=== PATIENT | male | born 1950 | race African-American/Black ===

== ENCOUNTER 2016-12-05 08:24 | Inpatient (IN) ==
--- NOTE | 2016-12-05 08:43 | Emergency Department Note ---
Randall Garibay Brooke, am scribing for, and in the presence of, Gary Soria MD 08:40 . Estella Garibay James D, MD, personally performed the services described in this documentation, ascribed by Vianney Pereira in my presence, and it is both accurate and complete 841 . Arrival - Arrival Chief Complaint: Upper Respiratory Stated Complaint: cough ED Nursing Triage Note: Pt c/o cough and ELIZONDO x 1 wk. Mode of Arrival: Ambulatory Limitations: No Limitations Source: Patient, Family, RN Notes Reviewed Time Seen by Provider: 12/05/16 08:33 - History of Present Illness HPI Narrative: Patient is a 65 year old male who presents to the ED with c/o cough and blood in his stool that has been ongoing for the past week. Patient says his cough is productive. He describes his mucous as white. Patient says he is having two bowel movements a day and there is bright red blood in the stool. His last bowel movement was this morning and there was blood in it. Patient also complains of abdominal pain and lightheadednes. The abdominal pain is located in the lower, center abdomen. Patient has PMHx of HTN and NIDDM. Patient is not currently taking any blood thinners. Onset (ago): week(s) (1) Allergies/Adverse Reactions: Allergies Allergy/AdvReac Type Severity Reaction Status Date / Time No Known Allergies Allergy Unverified 12/28/14 10:42 Home Medications: Home Medications Medication Instructions Recorded Confirmed Type HYDROcodone/ACETAMIN 10-325 [[place] 1 tablet PO Q6H PRN #20 tablet 12/28/14 Rx 10-325] Review of System - Review of System 12 point system: reviewed and no additional remarkable complaints except as stated - Review of System Constitutional: Absent: fever Respiratory: Present: cough (productive- white mucous). Absent: respiratory distress Gastrointestinal: Present: abdominal pain (lower center), hematochezia Skin: Absent: rash Neurological: Present: other (lightheaded) Medical,Surgical,& Family Hx - Medical History Cardio: History of: Hypertension Endocrine: History of: Diabetes Mellitus (NIDDM) (states diet controlled) - Social History Smoking Status: Current every day smoker Exam Vital Signs: Vital Signs Temperature 98.1 F 12/05/16 08:30 Pulse Rate 108 H 12/05/16 08:30 Respiratory Rate 20 12/05/16 08:30 Blood Pressure 141/89 12/05/16 08:30 O2 Sat by Pulse Oximetry 99 12/05/16 08:25 GENERAL: This is a well-nourished well-developed black male, chronically ill- appearing, in no apparent distress. VITAL SIGNS: Reviewed HEENT: Head is atraumatic and normocephalic. Pupils are equal round react to light. Extraocular movements are intact. [place] conjunctiva. Oropharynx is benign with moist mucous membranes. NECK: Neck is soft and supple without tenderness. There are no masses. There is no lymphadenopathy. LUNGS: Lungs are clear to auscultation. Chest rises symmetrically. There is no chest wall tenderness. CV: Heart is regular rate and rhythm without murmurs rubs or gallops. ABDOMEN: Abdomen is soft, minimal tenderness to palpation in the suprapubic area. There are no abdominal abnormal masses palpated. There is no organomegaly. Bowel sounds are present and active. Rectal: Heme positive stool SKIN: Skin is warm and dry. No rash. EXTREMITIES: Patient has full range of motion without tenderness. There is no pedal edema. Course - Consultations Consultation #1: Discussed with hospitalist. Patient will be admitted to their service. Time: 10:20 Results - Labs CBC & BMP: 12/05/16 08:48 12/05/16 08:48 Lab Results: I have reviewed the patients labs Labs: Laboratory Tests 12/05/16 08:48 INR 1.3 - Diagnostic Findings Procedure: Abdominal x-ray: image reviewed by me (Nonspecific gas pattern, no free air, gas in the rectum.), Chest x-ray: image reviewed by me (No infiltrates , no pleural effusions.) Disposition Clinical Impression: Cough, Lower GI bleeding, Anemia Case discussed with: patient Condition: Stable
--- NOTE | 2016-12-05 09:17 | XRay Report ---
XR chest 2V Indication: Cough Comparison: 02 February 2012 Findings: The heart and mediastinum are normal in size and configuration. The pulmonary vascularity is normal in caliber. Lung volumes are increased with prominent bronchial markings. No lung infiltrates, effusions, pneumothorax or other abnormality is demonstrated. Impression: Chronic lung changes. No acute process or significant change. PROCEDURE INTERPRETED AT [facility] DEPARTMENT OF RADIOLOGY Final Report Signed by: Dr. Don Fam
--- NOTE | 2016-12-05 09:19 | XRay Report ---
XR abdomen 2V Indication: Abdominal pain , gastrointestinal hemorrhage Comparison: None available Findings: No free fluid or free air seen. The bowel gas pattern appears within normal limits. Small amount of vascular calcifications are present. No other abnormal calcifications are present. Lumbar fusion at L5-S1 appears within normal limits. No other abnormality is identified. Impression: No evidence of acute process demonstrated. PROCEDURE INTERPRETED AT [facility] DEPARTMENT OF RADIOLOGY Final Report Signed by: Dr. Don Fam
[2016-12-05 09:22] LABS: Basophils % 0.2 % (0.0-0.8); Immature Granulocytes % 1.2 %; Lymphocytes # 1.3 10*3/uL (1.4-4.0); Lymphocytes % 15.3 % (21.2-54.2); Mean Corpuscular HGB Conc 35.5 GM/DL (32-36); Mean Corpuscular Hemoglobin 37 PG (27-34); Mean Corpuscular Volume 103.3 FL (87-102); Mean Platelet Volume 11.1 FL (9.6-12.0); Monocytes # 0.4 10*3/uL (0.11-0.8); Monocytes % 4.4 % (1.7-12.7); Neutrophils # 6.7 10*3/uL (1.4-7.4); Neutrophils % 78.9 % (38.7-73.9); Red Cell Distribution Width 16.5 % (9.3-17.3); White Blood Count 8.5 T/CUMM (4-12)
[2016-12-05 09:26] LABS: Platelet Count 73 T/CUMM (130-400)
[2016-12-05 09:32] LABS: INR 1.3; PT Patient Result 13.9 SECS; Partial Thromboplastin Time 25.2 SECS (0-40)
[2016-12-05 10:07] LABS: Albumin 3.1 G/DL (3.4-5.0); Bilirubin,Total 7.2 MG/DL (0.2-1.0); Calcium 8.7 MG/DL (8.5-10.1); Osmolality,Calculated 268.1 MOS/KG (273-304); Potassium 3.7 MMOL/L (3.5-5.1)
[2016-12-05] MEDS ORDERED: SODIUM CHLORIDE 0.9% 1,000 ML IV SCH (10:30)
--- NOTE | 2016-12-05 11:15 | Hospitalist History & Physical ---
Addendum entered and electronically signed by Darya Rivera CNP 12/05/16 11 :29: In addition, the patient's hepatic function was less than favorable. Total bilirubin was noted at 7.20, AST 204, ALT 52, alkaline phosphatase 162, albumin 3.1. We will obtain hepatitis panel, liver ultrasound, and monitor closely. Original Note: <Darya Rivera - Last Filed: 12/05/16 11:01> Assessment and Plan (1) Nicotine addiction Status: Acute Assessment and plan: The patient is a current smoker. Spoke with both patient and family members on the need of cessation. Spoke with patient on the placement of nicotine patch during hospitalization; patient is in agreement. Will order nicotine patch daily. Current Visit: Yes (2) Alcohol abuse Status: Acute Assessment and plan: The patient reports current alcohol use. His brother reports that he "drinks daily". The patient's brother reports that he does have "issues" when he does not drink. The patient was a initially not forthcoming about this. We will place the patient on CIWA precautions. We will monitor patient closely. Current Visit: Yes (3) Anemia Status: Acute Assessment and plan: Hemoglobin and hematocrit at the time of admission 11.0 and 31.0. We will order serial hemoglobin and hematocrits every 8 hours and monitor for changes. We will type and screen and monitor closely. Current Visit: Yes (4) Lower GI bleeding Status: Acute Assessment and plan: We will keep the patient n.p.o. We will start PPIs, DVT prophylaxis, and consult gastroenterology to evaluate. Current Visit: Yes History of Present Illness Chief complaint: Cough History of present illness: This is a poor and unfortunate 65-year-old male that presented to the ED at [facility] this morning for evaluation of cough and headache 1 week. Patient has a medical history significant for nicotine addiction, hypertension and diq-cqavijs-dnaacqejq diabetes mellitus. The patient reported a surgical history significant for lumbar fusion at L5 through S1. The patient reported the onset of symptoms 1 week prior to presentation. He reported that he started to have a productive cough thick and white in color and consistency. The patient's brother is present at bedside. In addition he reported that the patient started having bowel movements that contained bright red blood at least 2-3 times a day. After the brother's report of the symptoms , the patient reluctantly reported that he was also having abdominal pain which was primarily located in the center of his abdomen and lightheadedness. He became concerned when his brother continue to have the symptoms and brought him to the ED for further evaluation. The patient was assessed at the time of ED presentation. Labs were obtained; complete blood count reported white blood cell count at 8.5, hemoglobin 11.0, hematocrit 31.0, platelet count at 73. Basic metabolic profile reported sodium at 135, potassium 3.7, chloride 92, carbon dioxide 29, BUN 18, creatinine 0.90, and glucose 107. Coagulation panel reported INR 1.3. Abdominal x-ray was essentially unremarkable for any acute intra-abdominal processes. Chest x-ray reported chronic lung changes, however no acute cardiopulmonary processes were noted. After brief discussion with both Dr. Soria and Dr. Hudson, the patient will be admitted to the hospitalist services for continuation of care. A gastroenterology consultation has been requested to evaluate and assist during the clinical encounter. At the conclusion of the interview, I inquired regarding current alcohol use. Patient reports that he drinks daily. When asked about withdrawal symptoms, his brother reported that the patient does have issues when he does not drink. We will start CIWA precautions. Home Medications Medication Instructions Recorded Confirmed Type Aspirin EC Tab 81 mg PO QOTHER DAY 12/05/16 12/05/16 History Naproxen Sodium [Aleve] 440 mg PO Q4HR PRN 12/05/16 12/05/16 History Allergies Allergy/AdvReac Type Severity Reaction Status Date / Time No Known Allergies Allergy Unverified 12/28/14 10:42 Medical,Surgical,& Family Hx - Medical History Cardio: History of: Hypertension Endocrine: History of: Diabetes Mellitus (NIDDM) (states diet controlled) - Social History Smoking Status: Current every day smoker 12 point system: reviewed and no additional remarkable complaints except as stated Exam - Constitutional Vitals: Period Temp Pulse Resp BP Sys/Rivera Pulse Ox Last 24 Hr 98.1 F-98.1 F 108-108 20-20 141-141/89-89 99 General appearance: normal weight, no acute distress - Head Head exam: Present: normal inspection, normocephalic, atraumatic - Eye Eye exam: Present: EOMI Pupils: Present: GREGORY, normal accommodation - ENT ENT exam: Present: normal exam, normal external ear exam, normal oropharynx - Neck Neck exam: Present: normal inspection. Absent: lymphadenopathy, meningismus, thyromegaly - Respiratory Respiratory exam: Present: clear to auscultation bilaterally. Absent: rales, rhonchi, stridor, wheezes - Cardiovascular Cardiovascular exam: Present: regular rate and rhythm. Absent: carotid bruit, diastolic murmur, gallop, JVD, rubs, systolic murmur - GI/Abdominal GI/Abdominal exam: Present: normal bowel sounds, soft - Extremities Exam Extremities exam: Present: normal inspection, normal capillary refill, full ROM. Absent: edema - Neurological Exam Neurological exam: Present: alert, oriented X3, CN II-XII intact - Psychiatric Psychiatric exam: Present: normal affect, normal mood - Skin Skin exam: Present: normal color, warm, dry Results - Labs CBC & BMP: 12/05/16 08:48 12/05/16 08:48 <Sheng Lynn - Last Filed: 12/05/16 17:22> History of Present Illness History of present illness: Patient seen and examined independently of JANN Rivera, agree with history, assessment and plan as documented. Patient admitted for blood per rectum. Reports a history of this with colonoscopy at that time. Also alcoholic with probable cirrhosis. Consult GI. Monitor H/H Exam - Constitutional Vitals: Period Temp Pulse Resp BP Sys/Rivera Pulse Ox Last 24 Hr 98.1 F-98.7 F 96-111 20-20 141-155/80-89 98-99 Results - Labs CBC & BMP: 12/05/16 11:19 12/05/16 08:48
[2016-12-05 11:29] LABS: Hematocrit 28.4 VOL% (42.0-52.0); Hemoglobin 10.2 GM/DL (14.0-18.0)
[2016-12-05] MEDS ORDERED: THIAMINE INJ 100 MG, FOLIC ACID INJ 1 MG, MULTIVITAMIN INJ 10 ML in SODIUM CHLORIDE 0.9... IV SCH (11:58)
--- NOTE | 2016-12-05 12:06 | Ultrasound Report ---
Exam: US liver Date:12/05/2016 11:18 AM Comparison: No previous similar Indication: Elevated liver enzymes Technique: Real-time ultrasound images are captured and archived. Findings: The liver is normal in size without focal mass. There is no intrahepatic biliary dilatation. There is hepatopedal flow in the portal vein. There are mildly increased echoes throughout the hepatic parenchyma compatible with mild diffuse fatty infiltration of the liver. The visualized gallbladder, right kidney, pancreas, and common bile duct appear normal. IMPORTANT MEASUREMENTS Liver Length: 15.8 cm Gallbladder Wall Thickness: 2.6 mm CBD:3 mm Right kidney: Length:9 cm Width:4.4 cm AP:4.2 cm Impression: Mild diffuse fatty infiltration of the liver. Otherwise normal study The Ultrasound images were captured and stored. PROCEDURE INTERPRETED AT [facility] DEPARTMENT OF RADIOLOGY Final Report Signed by: Dr. Nona Ontiveros
[2016-12-05 12:12] LABS: Folate 7.5 NG/ML (5.4-24.0)
[2016-12-05] MEDS: 1: SODIUM CHLORIDE 0.9% 1,000 ML 2: THIAMINE INJ 100 MG, FOLIC ACID INJ 1 MG, MULTIVITA IV SCH ×2 (14:21→22:32)
[2016-12-05] MEDS: NICOTINE 21 MG/24 HR PATCH TRANSDERM SCH (14:21)
--- NOTE | 2016-12-05 14:27 | Gastrointestinal Consult Note ---
Assessment and Plan (1) Alcoholic hepatitis Status: Acute Assessment and plan: The patient has a bilirubin that is up to 7.2 along with an AST that is approximately 4 times greater than the ALT all consistent with cirrhosis especially along with the patient's low platelet level. This is most likely due to his alcohol intake which he characterizes as about 4 of the 32 ounce beers per day followed by a bottle of wine as well. He states that he does not drink whiskey. He has been drinking since he was 16. He did have a previous episode of upper GI bleeding back in 1999-10-24 years ago and that he does not recall what was discovered at that time but "nothing major". He is not presenting with melena but rather bright red blood per rectum and some maroon clots. I suspect lower GI bleed. If we do not find anything to explain the anemia we may proceed with a upper endoscopy especially given this patient's NSAID use and the potential for varices given his cirrhosis. Risks and benefits of the colonoscopy and possibly EGD to follow were presented to the patient and include but are not limited to: Bleeding, infection, perforation, cardiac and pulmonary compromise. We will proceed with colonoscopy tomorrow after clear liquid diet today and a MiraLAX prep given the patient's excellent kidney function. Current Visit: Yes (2) Jaundice Status: Acute Assessment and plan: There does not appear to be any ductal dilatation on ultrasound. This patient is not going to benefit from ERCP, we need to watch his liver function tests as he improves over time and abstinence from alcohol. Will ask laboratory to run a direct bilirubin and I would not be surprised if this was half indirect/half direct bili. Supportive care is all that is needed for the present time. He states that urine is been jaundiced for the last 2-3 months. Ultrasound fails to show any masses. I will check an AFP level, looking for evidence of hepatocellular carcinoma. I agree with checking this patient for hepatitis A, B , and C. We will also check him for alpha-1 antitrypsin deficiency, autoimmune hepatitis, and hemochromatosis. Current Visit: Yes (3) Acute posthemorrhagic anemia Status: Acute Assessment and plan: I suspect this patient probably has a GI bleeding from a diverticulum versus hemorrhoidal bleeding with his history of possible varices. AVM in the colon versus cancer or venous polyps with bleeding are all in the differential as well. We will evaluate tomorrow with colonoscopy. Again if the colonoscopy fails to show any significant findings would proceed to do a upper endoscopy the next day. Current Visit: Yes (4) Lower GI bleeding Status: Acute Assessment and plan: As mentioned above. We will proceed with colonoscopy tomorrow to establish the etiology of the bleeding source. Agree with watching this patient carefully for possible seizure disorder/withdrawal seizures. Current Visit: Yes History of Present Illness Chief complaint: Bright red blood per rectum with anemia and jaundice/alcoholic hepatitis History of present illness: Mr. Hudson is a 65 year old male who has been drinking somewhat heavily since his teenage years currently characterizing his alcohol intake per day is 3-4 of the 32 ounce cans per day along with approximately 1 bottle to "1/5" of wine per day along with this. He states that over the last 2-3 months he has been experiencing worsening of the yellowing of his eyes and also darkening of his urine. He does not have much in the way of epigastric pain but does experiencing some suprapubic pain over that period of time as well. Patient does not claim to have any diarrhea or constipation but over the last several days experiencing some worsening bright red blood per rectum causing him to come to the emergency room for further evaluation. Laboratory evaluation the patient's hematocrit is 3028.4 with a hemoglobin of 10.2 and MCV of 103.3. The platelet count is down to 73 all consistent with cirrhosis. Hepatitis A, B, and C panel are pending. PT/INR are 13.9 and 1.3 respectively where is the patient's BUN and creatinine are normal at 10 and 0.9. Liver function tests from today demonstrate an ALT of 52 and AST of 204, alkaline phosphatase 162 and a bilirubin of 7.2. Direct bilirubin is pending, however the patient's ultrasound demonstrates no evidence of mass or biliary ductal dilatation which might be suspicious for an obstruction of some type. I suspect he has alcoholic hepatitis is the main cause for the elevation jaundice. The patient has been on aspirin and Naprosyn and so may be experiencing some upper GI bleeding as well--he does not describe melena. He states that he had similar symptoms to this back in 2005 when he was admitted to a GI physician in [place], [place]. This was last time he underwent colonoscopy. He does not recall what the results were. Home Medications Medication Instructions Recorded Confirmed Type Aspirin EC Tab 81 mg PO QOTHER DAY 12/05/16 12/05/16 History Naproxen Sodium [Aleve] 440 mg PO Q4HR PRN 12/05/16 12/05/16 History Allergies Allergy/AdvReac Type Severity Reaction Status Date / Time No Known Allergies Allergy Unverified 12/28/14 10:42 Medical,Surgical,& Family Hx - Medical History Cardio: History of: Hypertension Endocrine: History of: Diabetes Mellitus (NIDDM) (states diet controlled) Respiratory: History of: Respiratory Problems (cough) Gastrointestinal: History of: GI Problems (lower gi bleed) - Surgical History Abdominal Surgeries: Patient denies: Abdominal Surgery - Family History Family History: Reports;: Family Diabetes, Family Hypertension, Family Stroke ( father) - Social History Smoking Status: Current every day smoker Frequency of Alcohol Use: Occasionally Type of Drug Use: None Review of systems: Constitutional: Denies fever, chills, and vomiting, but mild nausea. Eyes: Denies dry eyes, and he does admit to scleral icterus. HENT: Denies headaches Cardiovascular: Denies acute chest pain and claudication Respiratory: Denies shortness of breath, wheezing, and difficulty breathing, he does admit to some recent cough Gastrointestinal: As noted in the HPI Genitourinary: Denies dysuria and hematuria Neurologic: Denies vision loss, and loss of sensation Musculoskeletal: Patient does have some joint swelling, joint stiffness, and muscular weakness Psychiatric: He does have a history of alcoholism but denies depression and lianna symptoms Heme-Lymph: Denies easy bruising, lymph node enlargement or tenderness, night sweats, he does have some excessive bleeding Allergies-immunologic: Denies pruritus and rhinorrhea Exam - Constitutional Vitals: Period Temp Pulse Resp BP Sys/Rivera Pulse Ox Last 24 Hr 98.1 F-98.1 F 108-111 20-20 141-155/80-89 98-99 General appearance: normal weight Exam: Constitutional: Well-developed, well-nourished, alert, and in no acute distress Head and face: Head: Normocephalic atraumatic Eyes: Conjunctiva without injection, he does have some gross scleral icterus, pupils equal and round bilaterally Ears: Intact to conversation in both ears Nose: External appearance is normal, nares patent Mouth: Oral mucous membranes moist without erythema dentition noted to be without erosion Neck: Normal appearance, no masses or tenderness, trachea midline, multiple teeth missing Thyroid: Gland midline and appropriate size for age Respiratory: Normal respiratory effort, clear to auscultation without wheezes, rhonchi or rales Cardiovascular: Regular rate and rhythm, normal S1, S2, the exam is without rubs, murmurs or gallops. Gastrointestinal: The patient does have some slight suprapubic tenderness to palpation, normal active bowel sounds, tone normal without rigidity or guarding, no masses present, no hepatomegaly, no spleen tip felt. Oddly, I do not feel any ascites/mass present. Brown stool noted on rectal exam obtained, however this was grossly guaiac positive. Lymphatic: Neck without adenopathy, axilla without lymphadenopathy present Musculoskeletal: Right and left lower extremities without evidence of edema Skin and subcutaneous tissue: No rashes or ulcerations noted, normal skin turgor, digits and nails without clubbing/cyanosis/deformities. Neurologic: The patient is grossly oriented to person place and time, cranial nerves show tongue movements are normal with normal tongue extrusion midline, light touch sensation is intact. Psychiatric: No hallucinations or delusions are present, does not appear depressed - Head Head exam: Present: normocephalic - Eye Eye exam: Present: EOMI Pupils: Present: GREGORY Results - Labs CBC & BMP: 12/05/16 11:19 12/05/16 08:48
[2016-12-05 14:39] LABS: Hepatitis A Ab IgM Quant 0.07 Index; Hepatitis A Ab IgM Result Negative (Negative); Hepatitis B Core IgM Quant 0.14 Index; Hepatitis B Core IgM Result Negative (Negative); Hepatitis B Surface Ag Quant 0.22 Index; Hepatitis B Surface Ag Result Negative (Negative); Hepatitis C Virus Ab Result Negative (Negative)
[2016-12-05 14:50] LABS: % Iron Saturation 45.8 % (18-50)
[2016-12-05] MEDS: BISACODYL 5 MG TABLET PO SCH ×2 (15:17→22:44)
[2016-12-05] MEDS ORDERED: POLYETHYLENE GLYCOL POWDER 255 GM BOTTLE PO ONE (18:00)
[2016-12-05 19:16] LABS: Hematocrit 30.1 VOL% (42.0-52.0); Hemoglobin 10.7 GM/DL (14.0-18.0)
[2016-12-05] MEDS ORDERED: MAGNESIUM CITRATE 300 ML BOTTLE PO ONE (21:00)
[2016-12-06 02:08] LABS: Basophils % 0.2 % (0.0-0.8); Eosinophils % 0.2 % (0.00-10.9); Hematocrit 28.1 VOL% (42.0-52.0); Hemoglobin 10.1 GM/DL (14.0-18.0); Immature Granulocytes % 0.5 %; Immature Granulocytes Absolute 0.03 #; Lymphocytes # 1.7 10*3/uL (1.4-4.0); Lymphocytes % 25.5 % (21.2-54.2); Mean Corpuscular HGB Conc 35.9 GM/DL (32-36); Mean Corpuscular Hemoglobin 37 PG (27-34); Mean Corpuscular Volume 102.6 FL (87-102); Mean Platelet Volume 11.2 FL (9.6-12.0); Monocytes # 0.4 10*3/uL (0.11-0.8); Monocytes % 5.3 % (1.7-12.7); NRBC # 0.02 10*3/uL; Neutrophils # 4.5 10*3/uL (1.4-7.4); Neutrophils % 68.3 % (38.7-73.9); Platelet Count 69 T/CUMM (130-400); Red Blood Count 2.74 MC/CUMM (3.8-5.5); Red Cell Distribution Width 16.3 % (9.3-17.3); White Blood Count 6.6 T/CUMM (4-12)
[2016-12-06 02:16] LABS: INR 1.4; PT Patient Result 15.5 SECS
[2016-12-06 04:19] LABS: Band Neutrophils 1 % (0-10); Eosinophils 1 % (0-10); Lymphocytes 20 % (20-55); Metamyelocytes 1 %; Myelocytes 1 %; Segmented Neutrophils 73 % (50-85); Total Cells Counted 100
[2016-12-06 04:20] LABS: Anisocytosis 1+; Hypochromasia 1+; Platelet Estimate Decreased; Target Cells Few
[2016-12-06] MEDS: 1: SODIUM CHLORIDE 0.9% 1,000 ML 2: THIAMINE INJ 100 MG, FOLIC ACID INJ 1 MG, MULTIVITA IV SCH ×2 (06:13→17:09)
[2016-12-06] MEDS: BISACODYL 5 MG TABLET PO SCH (06:59)
[2016-12-06] MEDS: PANTOPRAZOLE 40 MG VIAL IV SCH (08:30)
[2016-12-06] MEDS: NICOTINE 21 MG/24 HR PATCH TRANSDERM SCH (08:30)
--- NOTE | 2016-12-06 11:27 | Operative Note ---
Date of procedure: 12/06/16 Pre-op diagnosis: Lower GI bleed, hematocrit 28.1%, alcoholic hepatitis, INR 1.4 Procedure: PROCEDURE: Colonoscopy [] REFERRING PHYSICIAN: [Sheng Lynn MD] INDICATIONS: [This is a patient with rectal bleeding and drop in hematocrit to 28%. He is a active alcoholic with a coagulopathy and INR of 1.4.] [The prior H&P was reviewed and interrim changes are as noted: ][] ENDOSCOPIST: Raymond Swanson MD ENDOSCOPE: [employer] Video 100 System colonoscope COLON PREPARATION: [238 gm of PEG containing laxative and 1.9 liters of gatoraid/sports drink and dulcolax 15 mg q8 hours x 3] ASA CLASS: 3 EXAM: CV: regular rate and rhythm Respiratory: Clear without wheezes Abdominal: active bowel sounds Rectal: Good tone, no fissures or fistulas MEDICATION: Per nursing anesthesia protocol, see their notes PROCEDURE: After discussion of the potential risks and benefits of colonoscopy, the informed consent was obtained, from patient or health care surrogate. The patient was then placed in the left lateral decubitus position where sedation was achieved as noted above. Rectal examination was followed by insertion of the colonoscope. The colonoscope was passed under direct visualization to the cecum. Advancement was facilitated by insertion/withdrawl techniques, abdominal pressure and patient positioning. Once the cecal pole was reached, slow withdrawal was performed with the findings as noted below. The patient tolerated the procedure well and without complication. QUALITY OF PREP: [] WITHDRAWL TIME: [] BIOPSIES: [] PHOTOGRAPHS: [] FINDINGS: [The musoca appeared normal in the following regions: rectum, sigmoid colon, descending colon, splenic flexure, transverse colon, hepatic flexure, ascending colon and cecum. Position within the cecum was confirmed by ileocecal valve, appendiceal oriface, and the convergence of folds (crows foot) . No colitis, polyp, mass or AVM was noted throughout the colon. No diverticulosis noted. Intubation of the TI was achieved x 5 cm with normal appearence] IMPRESSION: [] RECOMMENDATIONS: [High fiber diet] [Repeat colonosocopy will be in 3 years for greater than 3 adenomas, 5 years for 1-3 adenomas, or 10 years for hyperplastic polyps (only) or if no polyps discovered.] [Citrucel 1 tablespoon in 12 oz juice BID: 1 bottle: :11] [Follow up by phone for biopsy results in 1-2 weeks by phone ] Raymond Swanson MD COPY TO: [] Surgeon / Physician: Raymond Swanson Results - Labs CBC & BMP: 12/06/16 01:56 12/05/16 08:48 Discharge Plan - Discharge Medications No Action Naproxen Sodium [Aleve] 440 mg PO Q4HR PRN PRN Reason: Abdominal Pain Aspirin EC Tab 81 mg PO QOTHER DAY - Follow Up or Referral - Forms/Instructions
--- NOTE | 2016-12-06 11:30 | Gastrointestinal Progress Note ---
Assessment and Plan (1) Alcoholic hepatitis Status: Chronic Assessment and plan: The patient has a bilirubin that is up to 7.2 along with an AST that is approximately 4 times greater than the ALT all consistent with cirrhosis especially along with the patient's low platelet level. This is most likely due to his alcohol intake which he characterizes as about 4 of the 32 ounce beers per day followed by a bottle of wine as well. He states that he does not drink whiskey. He has been drinking since he was 16. He did have a previous episode of upper GI bleeding back in 2006-11 years ago and that he does not recall what was discovered at that time but "nothing major". He is not presenting with melena but rather bright red blood per rectum and some maroon clots. I suspect lower GI bleed. If we do not find anything to explain the anemia we may proceed with a upper endoscopy especially given this patient's NSAID use and the potential for varices given his cirrhosis. Risks and benefits of the colonoscopy and possibly EGD to follow were presented to the patient and include but are not limited to: Bleeding, infection, perforation, cardiac and pulmonary compromise. We will proceed with colonoscopy tomorrow after clear liquid diet today and a MiraLAX prep given the patient's excellent kidney function. 12/06/16--this patient has serology demonstrating no evidence of viral hepatitis. He does not have autoimmune hepatitis on the basis of his negative ROXANNA. I suspect he probably has long-standing alcoholic cirrhosis. Given his recent somewhat bizarre behavior I will go ahead and assess his ammonia level to see if there is hepatic encephalopathy present as I suspect there might be. Current Visit: Yes (2) Jaundice Status: Acute Assessment and plan: There does not appear to be any ductal dilatation on ultrasound. This patient is not going to benefit from ERCP, we need to watch his liver function tests as he improves over time and abstinence from alcohol. Will ask laboratory to run a direct bilirubin and I would not be surprised if this was half indirect/half direct bili. Supportive care is all that is needed for the present time. He states that urine is been jaundiced for the last 2-3 months. Ultrasound fails to show any masses. I will check an AFP level, looking for evidence of hepatocellular carcinoma. I agree with checking this patient for hepatitis A, B , and C. We will also check him for alpha-1 antitrypsin deficiency, autoimmune hepatitis, and hemochromatosis. 12/06/16--as mentioned above there is no ductal dilatation previously noted on the patient's ultrasound, we are checking the patient's bilirubin tomorrow to see if this is improved at all, the etiology appears more more like a alcoholic cirrhosis. The patient is expressing some very bizarre behavior which likely goes along with hepatic encephalopathy. Rechecking his ammonia level at this time. Would like to proceed with colonoscopy tomorrow if patient can be cleared from a Cardiologic standpoint to undergo the procedure. Would strongly suggest holding off on feeding the patient in the interim and giving him another flush tonight to see if we can be ready in case cardiology clears him by noon tomorrow for potential colonoscopy to follow. We will continue to follow his liver function tests tomorrow. Current Visit: Yes (3) Acute posthemorrhagic anemia Status: Acute Assessment and plan: I suspect this patient probably has a GI bleeding from a diverticulum versus hemorrhoidal bleeding with his history of possible varices. AVM in the colon versus cancer or venous polyps with bleeding are all in the differential as well. We will evaluate tomorrow with colonoscopy. Again if the colonoscopy fails to show any significant findings would proceed to do a upper endoscopy the next day. 12/06/16--procedure canceled due to SVT with heart rate into the 180 range. Patient is being evaluated by Dr. Jaime of cardiology and we may consider attempting the colonoscopy tomorrow if this can be done safely in his opinion. The patient is to undergo echocardiography and evaluation by telemetry of rate control starting with metoprolol 25 mg daily. Current Visit: Yes (4) Lower GI bleeding Status: Acute Assessment and plan: As mentioned above. We will proceed with colonoscopy tomorrow to establish the etiology of the bleeding source. Agree with watching this patient carefully for possible seizure disorder/withdrawal seizures. 12/06/16--Continue to observe as we prep for the colonoscopy. Unfortunately patient had some cheeseburger today for this will not ruin our ability to evaluate him endoscopically. Current Visit: Yes Gastroenterology - PN: Subj Interval history: No new complaints, patient's hematocrit is been relatively stable dropping from 30% to 28%. This patient was due to get a colonoscopy this morning--> unfortunately this got canceled due to a SVT with a heart rate up to 180. The patient did not appear to be in extremis when this occurred. The colonoscopy was put on hold until cardiology could evaluate the patient. He has been running between 118 and 180 by telemetry since that time. Dr. Jaime has seen the patient and is placed him on low-dose beta-rashard 25 mg per day. In the meantime the patient has had his brother bring him in a cheeseburger which he has been eating at the bedside despite his n.p.o./clear liquid status. I pointed out that this was not something we want to do if we were going to proceed with colonoscopy tomorrow and he agreed to throw the remaining part of the cheeseburger away. We will try and give him some magnesium citrate tonight to see if we can flush this out. The patient is being seen because of rectal bleeding which she has not had any further episodes of since his arrival. His hematocrit is mentioned above is relatively stable. Unfortunately the patient was also using a pen knife/multi tool to try and cut through his IV which I pointed out was not going to help his situation. Exam (Progress Note) - Constitutional Vitals: Period Temp Pulse Resp BP Sys/Rivera Pulse Ox Last 24 Hr 98.1 F-99.1 F 93-111 18-20 133-155/71-92 97-99 General appearance: no acute distress - Head Head exam: Present: normocephalic - Eye Eye exam: Present: EOMI, scleral icterus Pupils: Present: GREGORY - Respiratory Respiratory exam: Present: clear to auscultation bilaterally - Cardiovascular Cardiovascular exam: Present: regular rate and rhythm - GI/Abdominal GI/Abdominal exam: Present: normal bowel sounds, distended, soft. Absent: tenderness, rebound - Extremities Exam Extremities exam: Absent: edema - Neurological Exam Neurological exam: Present: alert, oriented X3 - Psychiatric Psychiatric exam: Present: normal affect, normal mood - Skin Skin exam: Present: warm Results - Labs CBC & BMP: 12/06/16 01:56 12/06/16 15:00
--- NOTE | 2016-12-06 13:08 | EKG Report ---
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
--- NOTE | 2016-12-06 14:47 | Hospitalist Progress Note ---
Assessment and Plan (1) Lower GI bleeding Status: Acute Assessment and plan: Colonoscopy cancelled today due to episode of svt Hopefully can be done tomorrow No BMs since yesterday H/H only slightly down, continue to monitor GI assisting Current Visit: Yes (2) Alcohol abuse Status: Chronic Assessment and plan: Monitor closely for DTs Current Visit: Yes (3) Alcoholic hepatitis Status: Chronic Current Visit: Yes (4) Jaundice Status: Acute Current Visit: Yes (5) Hypertension Status: Chronic Assessment and plan: Started on metoprolol Current Visit: Yes (6) Diabetes Status: Chronic Assessment and plan: SSI Current Visit: Yes (7) SVT (supraventricular tachycardia) Status: Acute Assessment and plan: Asymptomatic during episode Will check electrolytes Cardiology consulted Current Visit: Yes Hospitalist: Subjective Interval history: No acute events overnight. Patient prepped for colonoscopy. Per reports, patient went into SVT while there, procedure was cancelled. Patient denies sob, chest pain or palpitations during this episode. Cardiology has been consulted. Will check BMP and mag. Exam - Constitutional Vitals: Period Temp Pulse Resp BP Sys/Rivera Pulse Ox Last 24 Hr 98.0 F-99.1 F 93-188 18-20 129-154/71-065 94-99 General appearance: normal weight - Head Head exam: Present: normocephalic, atraumatic - Eye Eye exam: Present: EOMI Pupils: Present: GREGORY - ENT ENT exam: Present: normal exam - Neck Neck exam: Present: normal inspection - Respiratory Respiratory exam: Present: clear to auscultation bilaterally. Absent: rhonchi, wheezes - Cardiovascular Cardiovascular exam: Present: regular rate and rhythm - GI/Abdominal GI/Abdominal exam: Present: normal bowel sounds, soft - Extremities Exam Extremities exam: Present: normal inspection - Back Exam Back exam: Present: normal inspection - Neurological Exam Neurological exam: Present: alert, oriented X3 - Psychiatric Psychiatric exam: Present: normal affect, normal mood - Skin Skin exam: Present: warm, intact Results - Labs CBC & BMP: 12/06/16 01:56 12/05/16 08:48
[2016-12-06] MEDS ORDERED: DEXTROSE 50% 25 GM/50 ML VIAL IV PRN (14:51)
[2016-12-06] MEDS ORDERED: GLUCAGON 1 MG VIAL IM PRN (14:51)
--- NOTE | 2016-12-06 14:58 | Cardiology Consult Note ---
Dino Garibay Vanessa, RN, am scribing for, and in the presence of, Zuleika Jaime DO 14 :57. Assessment and Plan - Time spent with patient Time spent with patient: Greater than 30 minutes (Due to assessment, planning, documentation, and medication review) Time spent discussing smoking cessation with patient: more than 10 minutes (1) SVT (supraventricular tachycardia) Status: Acute Assessment and plan: Brief episode of some typd of SVT while in GI Lab. No EKG or cardiac monitoring strips during this episode available for review. quality assurance monitor has been ordered. I will add a low dose beta rashard and order an echocardiogram to assess for structural changes. He appears to have cardiomegaly by exam and hypertensive heart disease. Current Visit: Yes (2) Lower GI bleeding Status: Acute Assessment and plan: Presented to ED complaining of bright red bleeding per rectum. Denies further blood loss since admission. Current Visit: Yes (3) Anemia Status: Acute Assessment and plan: Posthemorrhagic anemia. Stable at this time. Hematocrit 28.1. Patient has not required blood transfusion. Reports he is not having any more BRBPR. Monitor closely. Current Visit: Yes (4) Smoker Status: Chronic Assessment and plan: Tobacco cessation counseling. NicoDerm patch has been provided. Current Visit: Yes (5) Hypertension Status: Chronic Assessment and plan: Overall, fairly well-controlled at this time. Continue antihypertensive regimen , and adjust medication as indicated in medical condition evolves. Current Visit: Yes (6) Diabetes Status: Chronic Assessment and plan: He does not routinely take medication or insulin for glucose levels. Reports this is diet controlled. Defer primary management to hospital medicine service. Current Visit: Yes (7) Alcohol abuse Status: Chronic Assessment and plan: Chronic alcohol abuse. Patient has been placed on protocol for alcohol withdrawal. Current Visit: Yes (8) Alcoholic hepatitis Status: Chronic Assessment and plan: Hepatitis panel is negative, but total bilirubin 7.2, AST 204. 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 Mr. 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 He has risk factors significant for: hypertension, diabetes , chronic tobaccoism, family history of CAD. Past medical history includes alcohol abuse and GI bleeding. He admits to drinking "about 4" 32 ounce beers daily and one bottle of wine daily. Patient was admitted December 05 after presenting to [facility] ED with hematochezia, cough, abdominal pain, and lightheadedness for 1 week prior. Stools positive for occult blood. X-ray of abdomen was benign. Blood work revealed total bilirubin 7.2 with AST 204, alkaline phosphatase 162, and platelet count 69,000. Patient has had some anemia but hematocrit has been stable, and he has not required blood transfusion. After admission, gastroenterology was consulted. Patient was scheduled for colonoscopy earlier today per Dr. Swanson. He was taken to the GI lab earlier for this procedure. However, after he arrived and was placed on the bedside monitor, it was noted that patient's pulse rate was around 180 bpm for a brief period. Colonoscopy was canceled. Stat EKG obtained demonstrated sinus tachycardia with pulse rate 95 bpm without ectopy or dysrhythmia. Patient was returned to his room. Cardiology is now consulted for further evaluation of tachycardia. Patient seen and examined. He is sitting up on side of the bed in no acute distress. When questioned about any symptoms he may have experienced during tachycardic episode, he denies all symptoms. Denies chest pain, palpitations, dyspnea, dizziness or lightheadedness, presyncope, or other. Apical pulse rate is currently around 100 with PAC by physical exam. BP 130/65. Labs reviewed. As above. Hepatitis panel was checked and is negative also. Since returning to his room, cardiac monitoring has been ordered. CC: Sheng Lynn MD - Home Medications and Allergies Home Medications: Home Medications Medication Instructions Recorded Confirmed Type Aspirin EC Tab 81 mg PO QOTHER DAY 12/05/16 12/05/16 History Naproxen Sodium [Aleve] 440 mg PO Q4HR PRN 12/05/16 12/05/16 History Allergies/Adverse Reactions: Allergies Allergy/AdvReac Type Severity Reaction Status Date / Time No Known Allergies Allergy Unverified 12/28/14 10:42 - Constitutional Constitutional: Present: anorexia. Absent: chills, daytime sleepiness, fever(s) , frequent falls, malaise, weakness, weight gain, weight loss - EENT Eyes: Absent: blurry vision, loss of vision Ears: Absent: decreased hearing Nose, mouth and throat: Absent: dysphagia, epistaxis, nasal congestion, sinus pressure, sore throat, tongue swelling, vertigo - Cardiovascular Cardiovascular: Absent: chest pain at rest, chest pain with activity, diaphoresis, dyspnea, dyspnea on exertion, edema, radiating jaw, neck or arm pain, lightheadedness, orthopnea, palpitations, PND - Respiratory Respiratory: Present: cough. Absent: dyspnea, hemoptysis, dyspnea on exertion, pain on inspiration, change in phlegm color - Gastrointestinal Gastrointestinal: Present: abdominal pain, early satiety, jaundice. Absent: constipation, cramping, diarrhea, dyspepsia, melena, nausea, vomiting - Genitourinary Genitourinary: Absent: difficulty urinating, dysuria, flank pain, hematuria - Musculoskeletal Musculoskeletal: Present: arthralgias. Absent: limited range of motion, myalgias - Neurological Neurological: Absent: abnormal gait, abnormal speech, confusion, dizziness, syncope, tremor(s) - Psychiatric Psychiatric: Absent: anxiety, depression - Endocrine Endocrine: Absent: cold intolerance, heat intolerance - Hematologic/Lymphatic Hematologic/Lymphatic: Present: easy bleeding. Absent: easy bruising Medical,Surgical,& Family Hx - Medical History Cardio: History of: Hypertension No history of: Cardiac Dysrhythmia, CHF, CAD, MA, Pacemaker, PVD, Valvular Heart Disease Psychological: No history of: Anxiety Disorders, Depression Neurology: No history of: Seizures Endocrine: History of: Diabetes Mellitus (NIDDM) (states diet controlled) No history of: Thyroid Disorder Rheumatology: No history of;: Fibromyalgia Respiratory: History of: Respiratory Problems (cough) No history of: Obstructive Sleep Apnea Renal: No history of: Renal Problems Genitourinary: No history of: Kidney Stones Gastrointestinal: History of: Gastrointestinal Bleed, Hematochezia, GI Problems (lower gi bleed) No history of: GERD Musculoskeletal: No history of: Amputation, Herniated Disk Hematology: History of: Anemia, Bleeding Problems No history of: Blood Transfusion Reaction Other: History of: Miscellaneous Medical Problems (alcoholism) No history of: Cancer, HIV - Surgical History Cardiac Surgeries: Patient Denies: Cardiac Catheterization, Cardiac Surgery Abdominal Surgeries: Patient denies: Abdominal Surgery - Family History Family History: Reports;: Family Diabetes, Family Heart Disease, Family Hypertension, Family Stroke (father) - Social History Smoking Status: Current every day smoker Have you smoked in the last 12 months: Yes Time spent discussing smoking cessation with patient: more than 10 minutes Frequency of Alcohol Use: Frequently Type of Drug Use: None Marital Status: Single Lives With:: Brother Functional capacity: independent ambulation Physical Examination Vital Signs Temp Pulse Resp BP Pulse Ox 98.1 F 108 H 20 141/89 99 12/05/16 08:25 12/05/16 08:25 12/05/16 08:25 12/05/16 08:25 12/05/16 08:25 General: Present: No Apparent Distress HEENT: Present: Jaundice, PERRL, Mucus Membranes Moist. Absent: Pallor Neck: Present: Supple Neck, Midline Trachea, No JVD/HJR, No Bruit Cardiac: Present: Irregularly Regular, S1/S2, S4, Systolic Murmur (sounds like mild ), Tachycardia, Laterally Displaced Lungs: Present: Clear Ascult./Percussion, No Wheeze, Rales, Rhonchi. Absent: Oxygen Neuro: Present: Grossly Intact. Absent: Numbness, Tingling, Weakness, Resting Tremor, Essential Tremor Abdomen: Present: Soft, Active Bowel Sounds, No Pulsations/Bruits, Tender, Distended (Slight distention). Absent: Ascites Skin: Present: Clear. Absent: Rash, Suspicious Lesions Musculoskeletal: Present: No Fluid Collection, Normal Range of Motion Extremities: Present: No Clubbing, No Cyanosis, No Edema, Normal Upper Extr. Pulses (3+ bilaterally), Normal Lower Extr. Pulses (3+ bilaterally), Capillary Refill. Absent: Edema, Mottled Result/EKG - Labs CBC & BMP: 12/06/16 01:56 12/05/16 08:48 Lab Results: I have reviewed the past 24 hour labs Labs: Laboratory Results - last 24 hr 12/05/16 12/05/16 12/05/16 08:48 08:48 11:00 WBC RBC Hgb Hct MCV MCH MCHC RDW Plt Count MPV Neut % (Auto) Lymph % (Auto) Barnes % (Auto) Eos % (Auto) Baso % (Auto) Neut # (Auto) Lymph # (Auto) Barnes # (Auto) Eos # (Auto) Baso # (Auto) Total Counted Immature Gran % Nucleated RBC % Immature Gran # Segmented Neutrophils Band Neutrophils Lymphocytes Monocytes Eosinophils Metamyelocytes Myelocytes Nucleated RBCs # Platelet Estimate Hypochromasia Anisocytosis Target Cells INR PT Patient/Control Mix Circ Anticoag PTT POC Glucose Iron 97 TIBC 212 L % Saturation 45.8 Direct Bilirubin 5.20 H Lipase Tumor Marker AFP ROXANNA Screen Hepatitis A IgM Ab Negative Hep Bs Antigen Negative Hep B Core IgM Ab Negative Hepatitis C Antibody Negative 12/05/16 12/05/16 12/05/16 14:41 15:45 18:33 WBC RBC Hgb 10.7 L Hct 30.1 L MCV MCH MCHC RDW Plt Count MPV Neut % (Auto) Lymph % (Auto) Barnes % (Auto) Eos % (Auto) Baso % (Auto) Neut # (Auto) Lymph # (Auto) Barnes # (Auto) Eos # (Auto) Baso # (Auto) Total Counted Immature Gran % Nucleated RBC % Immature Gran # Segmented Neutrophils Band Neutrophils Lymphocytes Monocytes Eosinophils Metamyelocytes Myelocytes Nucleated RBCs # Platelet Estimate Hypochromasia Anisocytosis Target Cells INR PT Patient/Control Mix Circ Anticoag PTT POC Glucose 90 Iron TIBC % Saturation Direct Bilirubin Lipase Tumor Marker AFP ROXANNA Screen Negative (<1:160) Hepatitis A IgM Ab Hep Bs Antigen Hep B Core IgM Ab Hepatitis C Antibody 12/05/16 12/06/16 12/06/16 20:16 01:56 01:56 WBC 6.6 RBC 2.74 L Hgb 10.1 L Hct 28.1 L MCV 102.6 H MCH 37 H MCHC 35.9 RDW 16.3 Plt Count 69 L MPV 11.2 Neut % (Auto) 68.3 Lymph % (Auto) 25.5 Barnes % (Auto) 5.3 Eos % (Auto) 0.2 Baso % (Auto) 0.2 Neut # (Auto) 4.5 Lymph # (Auto) 1.7 Barnes # (Auto) 0.4 Eos # (Auto) 0.0 Baso # (Auto) 0.0 Total Counted 100 Immature Gran % 0.5 Nucleated RBC % 0.3 Immature Gran # 0.03 Segmented Neutrophils 73 Band Neutrophils 1 Lymphocytes 20 Monocytes 3 Eosinophils 1 Metamyelocytes 1 Myelocytes 1 Nucleated RBCs # 0.02 Platelet Estimate Decreased Hypochromasia 1+ Anisocytosis 1+ Target Cells Few INR 1.4 PT Patient/Control Mix 15.5 Circ Anticoag PTT POC Glucose 229 H Iron TIBC % Saturation Direct Bilirubin Lipase Tumor Marker AFP ROXANNA Screen Hepatitis A IgM Ab Hep Bs Antigen Hep B Core IgM Ab Hepatitis C Antibody 12/06/16 12/06/16 12/06/16 01:56 01:56 01:56 WBC RBC Hgb Hct MCV MCH MCHC RDW Plt Count MPV Neut % (Auto) Lymph % (Auto) Barnes % (Auto) Eos % (Auto) Baso % (Auto) Neut # (Auto) Lymph # (Auto) Barnes # (Auto) Eos # (Auto) Baso # (Auto) Total Counted Immature Gran % Nucleated RBC % Immature Gran # Segmented Neutrophils Band Neutrophils Lymphocytes Monocytes Eosinophils Metamyelocytes Myelocytes Nucleated RBCs # Platelet Estimate Hypochromasia Anisocytosis Target Cells INR PT Patient/Control Mix Circ Anticoag PTT 26.4 POC Glucose Iron TIBC % Saturation Direct Bilirubin Lipase 278.0 D Tumor Marker AFP 7.5 ROXANNA Screen Hepatitis A IgM Ab Hep Bs Antigen Hep B Core IgM Ab Hepatitis C Antibody 12/06/16 12/06/16 06:45 11:34 WBC RBC Hgb Hct MCV MCH MCHC RDW Plt Count MPV Neut % (Auto) Lymph % (Auto) Barnes % (Auto) Eos % (Auto) Baso % (Auto) Neut # (Auto) Lymph # (Auto) Barnes # (Auto) Eos # (Auto) Baso # (Auto) Total Counted Immature Gran % Nucleated RBC % Immature Gran # Segmented Neutrophils Band Neutrophils Lymphocytes Monocytes Eosinophils Metamyelocytes Myelocytes Nucleated RBCs # Platelet Estimate Hypochromasia Anisocytosis Target Cells INR PT Patient/Control Mix Circ Anticoag PTT POC Glucose 146 H 112 H Iron TIBC % Saturation Direct Bilirubin Lipase Tumor Marker AFP ROXANNA Screen Hepatitis A IgM Ab Hep Bs Antigen Hep B Core IgM Ab Hepatitis C Antibody - Diagnostic Findings Procedure: Chest x-ray: image reviewed by me, report reviewed by me - EKG EKG results: interpreted by me, no acute changes EKG shows: tachycardia Yeni Garibay Shea, , personally performed the services described in this documentation, ascribed by Ana Sun RN in my presence, and it is both accurate and complete [id number] .
[2016-12-06 15:41] LABS: Calcium 8.2 MG/DL (8.5-10.1); Magnesium 1.5 MG/DL (1.8-2.4); Osmolality,Calculated 272.7 MOS/KG (273-304); Potassium 3.1 MMOL/L (3.5-5.1)
[2016-12-06] MEDS: METOPROLOL SUCCINATE XL 25 MG TABLET PO SCH (16:09)
[2016-12-06] MEDS ORDERED: MAGNESIUM SULF RIDER 4 GM in PREMIX 1 EACH IV PRN ×2 (17:10→18:33)
[2016-12-06] MEDS: INSULIN LISPRO 100 UNIT/ML SUBCUT SCH ×2 (17:15→21:16)
[2016-12-06] MEDS ORDERED: MAGNESIUM SULF RIDER 2 GM in PREMIX 1 EACH IV PRN (18:33)
[2016-12-06] MEDS ORDERED: METOPROLOL SUCCINATE XL 25 MG TABLET PO ONE (19:00)
[2016-12-06] MEDS: POTASSIUM CHLORIDE RIDER 10 MEQ in PREMIX 1 EACH IV PRN ×3 (19:04→22:20)
[2016-12-06] MEDS: LORazepam 2 MG/1 ML VIAL IV PRN ×2 (20:11→23:00)
[2016-12-06] MEDS ORDERED: MAGNESIUM CITRATE 300 ML BOTTLE PO ONE (21:00)
[2016-12-07] MEDS: POTASSIUM CHLORIDE RIDER 10 MEQ in PREMIX 1 EACH IV PRN ×7 (00:08→22:43)
[2016-12-07] MEDS: 1: SODIUM CHLORIDE 0.9% 1,000 ML 2: THIAMINE INJ 100 MG, FOLIC ACID INJ 1 MG, MULTIVITA IV SCH ×2 (00:59→21:23)
[2016-12-07] MEDS: LORazepam 2 MG/1 ML VIAL IV PRN (04:56)
[2016-12-07 06:21] LABS: Basophils % 0.1 % (0.0-0.8); Eosinophils # 0.1 10*3/uL (0.0-0.87); Eosinophils % 0.7 % (0.00-10.9); Hematocrit 29.3 VOL% (42.0-52.0); Hemoglobin 10.2 GM/DL (14.0-18.0); Immature Granulocytes % 0.4 %; Immature Granulocytes Absolute 0.03 #; Lymphocytes % 29.3 % (21.2-54.2); Mean Corpuscular HGB Conc 34.8 GM/DL (32-36); Mean Corpuscular Hemoglobin 37 PG (27-34); Mean Corpuscular Volume 106.2 FL (87-102); Mean Platelet Volume 11.6 FL (9.6-12.0); Monocytes # 0.3 10*3/uL (0.11-0.8); Monocytes % 4.9 % (1.7-12.7); Neutrophils # 4.5 10*3/uL (1.4-7.4); Neutrophils % 64.6 % (38.7-73.9); Platelet Count 79 T/CUMM (130-400); Red Blood Count 2.76 MC/CUMM (3.8-5.5); Red Cell Distribution Width 16.5 % (9.3-17.3); White Blood Count 6.9 T/CUMM (4-12)
[2016-12-07 06:49] LABS: Hypochromasia 1+; Lymphocytes 26 % (20-55); Ovalocytes Slight; Platelet Estimate Decreased; Segmented Neutrophils 70 % (50-85); Total Cells Counted 100
[2016-12-07 06:53] LABS: Calcium 8.2 MG/DL (8.5-10.1); Magnesium 2.4 MG/DL (1.8-2.4); Potassium 3.2 MMOL/L (3.5-5.1)
[2016-12-07 07:16] LABS: Albumin 3.1 G/DL (3.4-5.0); Bilirubin,Total 5.8 MG/DL (0.2-1.0); Calcium 8.4 MG/DL (8.5-10.1); Potassium 3.3 MMOL/L (3.5-5.1); Total Protein 6.6 G/DL (6.4-8.3)
[2016-12-07] MEDS ORDERED: GLUCAGON 1 MG VIAL IM PRN (07:23)
[2016-12-07] MEDS ORDERED: DEXTROSE 50% 25 GM/50 ML VIAL IV PRN (07:23)
[2016-12-07 07:48] LABS: INR 1.3; PT Patient Result 14.3 SECS
[2016-12-07] MEDS: INSULIN REGULAR 100 UNIT/ML SUBCUT SCH ×3 (08:56→17:12)
[2016-12-07] MEDS: INSULIN LISPRO 100 UNIT/ML SUBCUT SCH ×4 (08:56→21:17)
[2016-12-07] MEDS: PANTOPRAZOLE 40 MG VIAL IV SCH (09:12)
[2016-12-07] MEDS: METOPROLOL SUCCINATE XL 25 MG TABLET PO SCH (09:24)
[2016-12-07] MEDS: NICOTINE 21 MG/24 HR PATCH TRANSDERM SCH (09:24)
--- NOTE | 2016-12-07 09:57 | Hospitalist Progress Note ---
Addendum entered and electronically signed by Darya Rivera CNP 12/07/16 10 :03: In addition, an ammonia level was ordered on yesterday which was noted at 19. On recheck this a.m. the patient's ammonia level is noted at 30. The patient is not experiencing any acute neurological deficits at this time however;we will monitor closely and recheck potassium in a.m. Original Note: Assessment and Plan (1) Nicotine addiction Status: Acute Assessment and plan: The patient is a current smoker. Spoke with both patient and family members on the need of cessation. Spoke with patient on the placement of nicotine patch during hospitalization; patient is in agreement. Will order nicotine patch daily. Current Visit: Yes (2) Alcohol abuse Status: Chronic Assessment and plan: The patient reports current alcohol use. His brother reports that he "drinks daily". The patient's brother reports that he does have "issues" when he does not drink. The patient was a initially not forthcoming about this. We will place the patient on CIWA precautions. We will monitor patient closely. 12/07-CIWA precautions remain in order. We will start the patient on Librium 25 mg 3 times daily. Current Visit: Yes (3) Anemia Status: Acute Assessment and plan: Hemoglobin and hematocrit at the time of admission 11.0 and 31.0. We will order serial hemoglobin and hematocrits every 8 hours and monitor for changes. We will type and screen and monitor closely. 12/07-Hemoglobin and hematocrit stable at 10.2 and 29.3. Current Visit: Yes (4) Lower GI bleeding Status: Acute Assessment and plan: We will keep the patient n.p.o. We will start PPIs, DVT prophylaxis, and consult gastroenterology to evaluate. 12/07-Colonoscopy cancelled on yesterday at the the patient was discovered to be in SVT in the GI lab. The patient was seen and evaluated by cardiology on yesterday and started on a low-dose beta-rashard. The patient experienced some cardiac dysrhythmias on late yesterday afternoon however the patient's potassium and magnesium was noted to be low. The deficits were corrected; and no further episodes of cardiac dysrhythmias were noted. Agree with GIs plan for colonoscopy in a.m. Current Visit: Yes Hospitalist: Subjective Interval history: Patient seen and examined; chart reviewed. Colonoscopy counseled on yesterday at the the patient was discovered to be in SVT in the GI lab. The patient was brought back to the floor and a cardiology consultation was requested. The patient was started on metoprolol XL on yesterday afternoon per cardiology recommendation. The patient experienced a few more incidents of cardiac dysrhythmia after the administration of the Toprol which was likely due to deficits in his magnesium and potassium. Exam - Constitutional Vitals: Period Temp Pulse Resp BP Sys/Rivera Pulse Ox Last 24 Hr 97.0 F-98.4 F 84-188 20-22 122-155/68-065 90-100 General appearance: normal weight, no acute distress - Head Head exam: Present: normal inspection, normocephalic - Eye Eye exam: Present: EOMI, scleral icterus, other (Jaundice). Absent: conjunctival injection Pupils: Present: GREGORY, normal accommodation - ENT ENT exam: Present: normal exam, normal external ear exam, normal oropharynx - Neck Neck exam: Present: normal inspection, lymphadenopathy - Respiratory Respiratory exam: Present: clear to auscultation bilaterally. Absent: rales, rhonchi, stridor, wheezes - Cardiovascular Cardiovascular exam: Present: regular rate and rhythm. Absent: carotid bruit, diastolic murmur, gallop, JVD, rubs, tachycardia - GI/Abdominal GI/Abdominal exam: Present: normal bowel sounds, soft. Absent: tenderness, rebound - Extremities Exam Extremities exam: Present: normal inspection, normal capillary refill, full ROM. Absent: edema - Back Exam Back exam: Present: normal inspection - Neurological Exam Neurological exam: Present: alert, oriented X3, CN II-XII intact - Psychiatric Psychiatric exam: Present: normal affect, normal mood - Skin Skin exam: Present: warm, dry, other (Jaundice) Results - Labs CBC & BMP: 12/07/16 06:14 12/07/16 06:13 Lab Results: I have reviewed the past 24 hour labs
[2016-12-07] MEDS: LACTULOSE 20 GM/30 ML UDCUP PO SCH ×2 (10:46→21:17)
--- NOTE | 2016-12-07 14:03 | ECHO Report ---
Charles Hudson 12/07/2016 Exam Date: 09:36 Referring Physician: Rochelle Skaggs Technologist: GALE Age: 65 Ht (in): 72 Wt (lb): 144 MExam [facility]: [facility] Gender: Echo [id number]: SVT, DM, HTN, smoker, alcohol hepitIndications:itis, nicotine addiction, anemia BP: 151 / 86 HR: 84 SinusRhythm: averageTechnical Quality: IMPRESSIONS Left ventricular ejection fraction is estimated at 50% Diastolic parameters are most consistent with grade 1 diastolic dysfunction or impaired relaxation. There is mid and distal inferior wall hypokinesis and mild thinning of the ventricle. No significant valvular abnormality MEASUREMENTS (Male / Female) Normal Values 2D ECHO LV Diastolic Diameter PLAX 4.7 cm 4.2 - 5.9 / 3.9 - 5.3 cm LV Systolic Diameter PLAX 3.4 cm LV Fractional Shortening PLAX 27.8 % IVS Diastolic Thickness 1.1 cm 0.6 - 1.0 / 0.6 - 0.9 cm LVPW Diastolic Thickness 1.1 cm 0.6 - 1.0 / 0.6 - 0.9 cm RV Internal Dim ED PLAX 2.1 cm Aortic Root Diameter 2.1 cm LA Systolic Diameter LX 3.6 cm 3.0 - 4.0 / 2.7 - 3.8 cm FINDINGS Left Ventricle Normal left ventricular cavity size. Mild concentric left ventricular hypertrophy with mild diastolic dysfunction. Left ventricular ejection fraction is estimated at 50%. There is mid and distal inferior wall hypokinesis and mild thinning of the ventricle. Diastolic parameters are most consistent with grade 1 diastolic dysfunction or impaired relaxation. Right Ventricle Normal right ventricular size. Right Atrium The right atrium is mildly enlarged. Left Atrium The left atrium is mildly enlarged. Mitral Valve Mildly thickened mitral valve with mild mitral regurgitation. Aortic Valve Mild aortic valve sclerosis without stenosis. Tricuspid Valve Morphologically normal tricuspid valve. Pulmonic Valve Morphologically normal pulmonic valve. Pericardium No pericardial effusion. Aorta Normal size aortic root and proximal ascending aorta. Zuleika Jaime (Electronically Signed) 07 December 2016 Final Date: 14:02
[2016-12-07] MEDS: chlordiazePOXIDE 10 MG CAPSULE PO SCH ×2 (15:04→21:17)
--- NOTE | 2016-12-07 16:12 | Cardiology Progress Note ---
Dino Garibay Vanessa RN, am scribing for, and in the presence of, Zuleika Jaime DO 16 :12. Assessment and Plan - Time spent with patient Time spent with patient: Greater than 30 minutes (1) Nonsustained ventricular tachycardia Status: Acute Assessment and plan: Episode of nonsustained ventricular tachycardia overnight. Echocardiogram today with preserved EF but mid and distal inferior wall hypokinesis. Will need heart cath at some point. Likely after discharge okay to proceed with proposed endoscopy. Correct hypokalemia and continue beta-rashard Current Visit: Yes (2) SVT (supraventricular tachycardia) Status: Acute Assessment and plan: No recurrent SVT per cardiac monitoring strips. SVT episode yesterday most likely contributed to electrolyte imbalances. Hypomagnesemia is resolved today. He does remain hypokalemic today, and potassium is being repleted with IV KCl protocol. Current Visit: Yes (3) Lower GI bleeding Status: Acute Assessment and plan: Presented to ED complaining of bright red bleeding per rectum. Denies further bleeding since hospital admission. He is now being prepared for colonoscopy. Current Visit: Yes (4) Anemia Status: Acute Assessment and plan: Posthemorrhagic anemia. Hematocrit remained stable and is 29.3 today. Patient has not required blood transfusion. Reports he is not having any more BRBPR. Monitor closely. Current Visit: Yes (5) Smoker Status: Chronic Assessment and plan: Tobacco cessation counseling. NicoDerm patch has been provided. Current Visit: Yes (6) Hypertension Status: Chronic Assessment and plan: Well controlled today.. Continue antihypertensive regimen, and adjust medication as indicated in medical condition evolves. Current Visit: Yes (7) Diabetes Status: Chronic Assessment and plan: He does not routinely take medication or insulin for glucose levels. Reports this is diet controlled. Defer primary management to hospital medicine service. Current Visit: Yes (8) Alcohol abuse Status: Chronic Assessment and plan: Chronic alcohol abuse. Patient has been placed on protocol for alcohol withdrawal. Current Visit: Yes (9) Alcoholic hepatitis Status: Chronic Assessment and plan: Hepatitis panel is negative, but total bilirubin 7.2, AST 204. Current Visit: Yes Cardiology - PN: Subj Interval history: PRIMARY REHAB AID: NONE SUMMARY: Mr. Hudson is a 65 year old black male who has never been formally evaluated by a guard manager. He has risk factors significant for: hypertension, diabetes , chronic tobaccoism, family history of CAD. Past medical history includes alcohol abuse and GI bleeding. He admits to drinking "about 4" 32 ounce beers daily and one bottle of wine daily. Patient was admitted December 05 [facility] with hematochezia, cough, abdominal pain, and lightheadedness for 1 week prior. Stools positive for occult blood. X-ray of abdomen was benign. Blood work revealed total bilirubin 7.2 with AST 204, alkaline phosphatase 162, and platelet count 69,000. Patient has had some anemia but hematocrit has been stable, and he has not required blood transfusion. After admission, gastroenterology was consulted. Patient was scheduled for colonoscopy on December [address] Swanson. After arriving to GI Lab, patient was noted to have brief episode of SVT with pulse rate in the 180s with spontaneous conversion to regular rate and rhythm. Colonoscopy was canceled. Stat EKG was negative for acute ischemic finding. Patient was returned to his room. Cardiology was consulted for further evaluation of SVT. Electrolyte imbalance noted with potassium 3.1, magnesium 1.5. November: Patient remains hypokalemic with K+ 3.2 today. Magnesium is improved 2.4. Overnight, telemetry monitoring shows an episode of nonsustained ventricular tachycardia. Cardiac monitoring strips obtained while in the GI lab yesterday have not been reviewed. Echocardiogram has been reviewed today and demonstrates LVEF 50%, mild diastolic dysfunction, and mid and distal inferior wall hypokinesis. Bilirubin level improved today to 5.8, and AST with no significant change, 207. Blood pressure is stable and averaging 125/70. I cleaned need a left heart catheterization at some point. For now I would replete his potassium and push his beta-rashard. He will be fine to proceed with endoscopy as needed. The patient has not had any angina. Exam (Progress Note) - Constitutional Vitals: Period Temp Pulse Resp BP Sys/Rivera Pulse Ox Last 24 Hr 97.0 F-98.4 F 77-112 20-22 122-155/68-97 90-100 Exam: General: Present: No Apparent Distress HEENT: Present: Jaundice, PERRL, Mucus Membranes Moist. Absent: Pallor Neck: Present: Supple Neck, Midline Trachea, No JVD/HJR, No Bruit Cardiac: Present: Irregularly Regular, S1/S2, S4, Systolic Murmur (sounds like mild ), Tachycardia, Laterally Displaced Lungs: Present: Clear Ascult./Percussion, No Wheeze, Rales, Rhonchi. Absent: Oxygen Neuro: Present: Grossly Intact. Absent: Numbness, Tingling, Weakness, Resting Tremor, Essential Tremor Abdomen: Present: Soft, Active Bowel Sounds, No Pulsations/Bruits, Tender, Distended (Slight distention). Absent: Ascites Skin: Present: Clear. Absent: Rash, Suspicious Lesions Musculoskeletal: Present: No Fluid Collection, Normal Range of Motion Extremities: Present: No Clubbing, No Cyanosis, No Edema, Normal Upper Extr. Pulses (3+ bilaterally), Normal Lower Extr. Pulses (3+ bilaterally), Capillary Refill. Absent: Edema, Mottled Result/EKG - Labs CBC & BMP: 12/07/16 06:14 12/07/16 06:13 Lab Results: I have reviewed the past 24 hour labs Labs: Laboratory Results - last 24 hr 12/06/16 12/06/16 12/06/16 15:00 15:19 18:57 WBC RBC Hgb Hct MCV MCH MCHC RDW Plt Count MPV Neut % (Auto) Lymph % (Auto) Licking % (Auto) Eos % (Auto) Baso % (Auto) Neut # (Auto) Lymph # (Auto) Licking # (Auto) Eos # (Auto) Baso # (Auto) Total Counted Immature Gran % Nucleated RBC % Immature Gran # Segmented Neutrophils Lymphocytes Monocytes Nucleated RBCs # Platelet Estimate Hypochromasia Ovalocytes Morphology Comment INR PT Patient/Control Mix Sodium 138 Potassium 3.1 L Chloride 99 Carbon Dioxide 30 Anion Gap 12.1 BUN 6 L Creatinine 0.70 GFR Calculation 123 BUN/Creatinine Ratio 8.00 Glucose 106 POC Glucose 122 H Hemoglobin A1c Calculated Osmolality 272.7 L Calcium 8.2 L Magnesium 1.5 L Total Bilirubin AST ALT Alkaline Phosphatase Ammonia 19 Total Protein Albumin Globulin Albumin/Globulin Ratio 12/06/16 12/07/16 12/07/16 21:18 06:13 06:13 WBC RBC Hgb Hct MCV MCH MCHC RDW Plt Count MPV Neut % (Auto) Lymph % (Auto) [place]icking % (Auto) Eos % (Auto) Baso % (Auto) Neut # (Auto) Lymph # (Auto) Licking # (Auto) Eos # (Auto) Baso # (Auto) Total Counted Immature Gran % Nucleated RBC % Immature Gran # Segmented Neutrophils Lymphocytes Monocytes Nucleated RBCs # Platelet Estimate Hypochromasia Ovalocytes Morphology Comment INR PT Patient/Control Mix Sodium 136 136 Potassium 3.2 L 3.3 L Chloride 98 99 Carbon Dioxide 26 24 Anion Gap 15.2 H 16.3 H BUN 3 L 4 L Creatinine 0.70 0.70 GFR Calculation 123 123 BUN/Creatinine Ratio 4.00 L 5.00 L Glucose 111 H 112 H POC Glucose 167 H Hemoglobin A1c Calculated Osmolality 269.0 L 269.0 L Calcium 8.2 L 8.4 L Magnesium 2.4 Total Bilirubin 5.80 H AST 207 H ALT 58 Alkaline Phosphatase 167 H Ammonia Total Protein 6.6 Albumin 3.1 L Globulin 3.5 Albumin/Globulin Ratio 0.8 L 12/07/16 12/07/16 12/07/16 06:13 06:14 06:14 WBC 6.9 RBC 2.76 L Hgb 10.2 L Hct 29.3 L MCV 106.2 H MCH 37 H MCHC 34.8 RDW 16.5 Plt Count 79 L MPV 11.6 Neut % (Auto) 64.6 Lymph % (Auto) 29.3 Licking % (Auto) 4.9 Eos % (Auto) 0.7 Baso % (Auto) 0.1 Neut # (Auto) 4.5 Lymph # (Auto) 2.0 Licking # (Auto) 0.3 Eos # (Auto) 0.1 Baso # (Auto) 0.0 Total Counted 100 Immature Gran % 0.4 Nucleated RBC % 0.0 Immature Gran # 0.03 Segmented Neutrophils 70 Lymphocytes 26 Monocytes 4 Nucleated RBCs # 0.00 Platelet Estimate Decreased Hypochromasia 1+ Ovalocytes Slight Morphology Comment INR PT Patient/Control Mix Sodium Potassium 3.2 L Chloride Carbon Dioxide Anion Gap BUN Creatinine GFR Calculation BUN/Creatinine Ratio Glucose POC Glucose Hemoglobin A1c Calculated Osmolality Calcium Magnesium Total Bilirubin AST ALT Alkaline Phosphatase Ammonia 30 Total Protein Albumin Globulin Albumin/Globulin Ratio 12/07/16 12/07/16 12/07/16 07:09 07:23 07:29 WBC RBC Hgb Hct MCV MCH MCHC RDW Plt Count MPV Neut % (Auto) Lymph % (Auto) Licking % (Auto) Eos % (Auto) Baso % (Auto) Neut # (Auto) Lymph # (Auto) Licking # (Auto) Eos # (Auto) Baso # (Auto) Total Counted Immature Gran % Nucleated RBC % Immature Gran # Segmented Neutrophils Lymphocytes Monocytes Nucleated RBCs # Platelet Estimate Hypochromasia Ovalocytes Morphology Comment INR 1.3 PT Patient/Control Mix 14.3 Sodium Potassium Chloride Carbon Dioxide Anion Gap BUN Creatinine GFR Calculation BUN/Creatinine Ratio Glucose POC Glucose 142 H Hemoglobin A1c 4.4 Calculated Osmolality Calcium Magnesium Total Bilirubin AST ALT Alkaline Phosphatase Ammonia Total Protein Albumin Globulin Albumin/Globulin Ratio 12/07/16 12:36 WBC RBC Hgb Hct MCV MCH MCHC RDW Plt Count MPV Neut % (Auto) Lymph % (Auto) [place] % (Auto) Eos % (Auto) Baso % (Auto) Neut # (Auto) Lymph # (Auto) [place]icking # (Auto) Eos # (Auto) Baso # (Auto) Total Counted Immature Gran % Nucleated RBC % Immature Gran # Segmented Neutrophils Lymphocytes Monocytes Nucleated RBCs # Platelet Estimate Hypochromasia Ovalocytes Morphology Comment INR PT Patient/Control Mix Sodium Potassium Chloride Carbon Dioxide Anion Gap BUN Creatinine GFR Calculation BUN/Creatinine Ratio Glucose POC Glucose 141 H Hemoglobin A1c Calculated Osmolality Calcium Magnesium Total Bilirubin AST ALT Alkaline Phosphatase Ammonia Total Protein Albumin Globulin Albumin/Globulin Ratio - EKG EKG results: interpreted by me, no acute changes I, Zuleika Jaime, DO, personally performed the services described in this documentation, ascribed by Ana Sun RN in my presence, and it is both accurate and complete [id number] .
[2016-12-07] MEDS ORDERED: METOPROLOL TARTRATE 25 MG TABLET PO ONE (16:13)
[2016-12-07] MEDS ORDERED: METOPROLOL SUCCINATE XL 25 MG TABLET PO SCH (16:14)
[2016-12-07] MEDS ORDERED: POTASSIUM CHLORIDE 20 MEQ TABLET PO ONE (19:15)
--- NOTE | 2016-12-07 19:20 | Gastrointestinal Progress Note ---
Assessment and Plan (1) Alcoholic hepatitis Status: Chronic Assessment and plan: The patient has a bilirubin that is up to 7.2 along with an AST that is approximately 4 times greater than the ALT all consistent with cirrhosis especially along with the patient's low platelet level. This is most likely due to his alcohol intake which he characterizes as about 4 of the 32 ounce beers per day followed by a bottle of wine as well. He states that he does not drink whiskey. He has been drinking since he was 16. He did have a previous episode of upper GI bleeding back in 2006-11 years ago and that he does not recall what was discovered at that time but "nothing major". He is not presenting with melena but rather bright red blood per rectum and some maroon clots. I suspect lower GI bleed. If we do not find anything to explain the anemia we may proceed with a upper endoscopy especially given this patient's NSAID use and the potential for varices given his cirrhosis. Risks and benefits of the colonoscopy and possibly EGD to follow were presented to the patient and include but are not limited to: Bleeding, infection, perforation, cardiac and pulmonary compromise. We will proceed with colonoscopy tomorrow after clear liquid diet today and a MiraLAX prep given the patient's excellent kidney function. 12/06/16--this patient has serology demonstrating no evidence of viral hepatitis. He does not have autoimmune hepatitis on the basis of his negative ROXANNA. I suspect he probably has long-standing alcoholic cirrhosis. Given his recent somewhat bizarre behavior I will go ahead and assess his ammonia level to see if there is hepatic encephalopathy present as I suspect there might be. 12/07/16--Ammonia level surprisingly low at 30, this patient seems a lot more calm today. He has been having clear liquids all day and has been cleared by cardiology to undergo his colonoscopy tomorrow. He seems to be doing adequately at this point. Colonoscopy is planned for tomorrow morning, again. Current Visit: Yes (2) Jaundice Status: Acute Assessment and plan: There does not appear to be any ductal dilatation on ultrasound. This patient is not going to benefit from ERCP, we need to watch his liver function tests as he improves over time and abstinence from alcohol. Will ask laboratory to run a direct bilirubin and I would not be surprised if this was half indirect/half direct bili. Supportive care is all that is needed for the present time. He states that urine is been jaundiced for the last 2-3 months. Ultrasound fails to show any masses. I will check an AFP level, looking for evidence of hepatocellular carcinoma. I agree with checking this patient for hepatitis A, B , and C. We will also check him for alpha-1 antitrypsin deficiency, autoimmune hepatitis, and hemochromatosis. 12/06/16--as mentioned above there is no ductal dilatation previously noted on the patient's ultrasound, we are checking the patient's bilirubin tomorrow to see if this is improved at all, the etiology appears more more like a alcoholic cirrhosis. The patient is expressing some very bizarre behavior which likely goes along with hepatic encephalopathy. Rechecking his ammonia level at this time. Would like to proceed with colonoscopy tomorrow if patient can be cleared from a Cardiologic standpoint to undergo the procedure. Would strongly suggest holding off on feeding the patient in the interim and giving him another flush tonight to see if we can be ready in case cardiology clears him by noon tomorrow for potential colonoscopy to follow. We will continue to follow his liver function tests tomorrow. 12/07/16-- The bilirubin is slowly improving now down from 7.2-->5.8 with supportive care. Alkaline phosphatase is actually fairly normal at 167, I suspect that his liver function tests will improve even further with improved nutritional intake after the colonoscopy. Patient's potassium level is 3.2 up to 3.3 now status post multiple runs of K riders and oral potassium. We will continue oral potassium tomorrow prior to this colonoscopy--note this patient's INR is 1.3 at this point and he appears to be doing quite well. Current Visit: Yes (3) Acute posthemorrhagic anemia Status: Acute Assessment and plan: I suspect this patient probably has a GI bleeding from a diverticulum versus hemorrhoidal bleeding with his history of possible varices. AVM in the colon versus cancer or venous polyps with bleeding are all in the differential as well. We will evaluate tomorrow with colonoscopy. Again if the colonoscopy fails to show any significant findings would proceed to do a upper endoscopy the next day. 12/06/16--Procedure canceled due to SVT with heart rate into the 180 range. Patient is being evaluated by Dr. Jaime of cardiology and we may consider attempting the colonoscopy tomorrow if this can be done safely in his opinion. The patient is to undergo echocardiography and evaluation by telemetry of rate control starting with metoprolol 25 mg daily. 12/07/16--We Will proceed with colonoscopy tomorrow now that the patient has been assessed by cardiology. See Dr. Jaime's notes for full details. Hematocrit is remained stable at this point currently at 29.3%. Current Visit: Yes (4) Lower GI bleeding Status: Acute Assessment and plan: As mentioned above. We will proceed with colonoscopy tomorrow to establish the etiology of the bleeding source. Agree with watching this patient carefully for possible seizure disorder/withdrawal seizures. 12/06/16--Continue to observe as we prep for the colonoscopy. Unfortunately patient had some cheeseburger today for this will not ruin our ability to evaluate him endoscopically. 12/07/16--Await colonoscopy tomorrow. Hopefully will be able to find a source for this patient's bleeding. Current Visit: Yes Gastroenterology - PN: Subj Interval history: "Uncle Mt" is doing adequately, he is taking and is clear liquid diet and appears to be clean enough to be able to undergo colonoscopy tomorrow. He was able tolerate his enemas this morning with only a small amount of residual. He states that all of his stools have been clear at this point. He is due to undergo colonoscopy tomorrow now that cardiology has cleared him for this procedure. Heart rate is remaining in the 80s-90s at this point with the help of beta-blockers. Exam (Progress Note) - Constitutional Vitals: Period Temp Pulse Resp BP Sys/Rivera Pulse Ox Last 24 Hr 97.0 F-98.2 F 77-112 16-22 122-155/68-97 90-100 General appearance: no acute distress - Head Head exam: Present: normocephalic, atraumatic - Eye Eye exam: Present: EOMI Pupils: Present: GREGORY - Respiratory Respiratory exam: Present: clear to auscultation bilaterally. Absent: rhonchi, stridor, wheezes - Cardiovascular Cardiovascular exam: Present: regular rate and rhythm - GI/Abdominal GI/Abdominal exam: Present: normal bowel sounds, soft. Absent: distended, guarding, tenderness, rebound - Extremities Exam Extremities exam: Absent: edema - Neurological Exam Neurological exam: Present: alert, oriented X3. Absent: CN II-XII intact - Psychiatric Psychiatric exam: Present: normal affect, normal mood - Skin Skin exam: Present: warm Results - Labs CBC & BMP: 12/07/16 06:14 12/07/16 17:11
[2016-12-08] MEDS: POTASSIUM CHLORIDE RIDER 10 MEQ in PREMIX 1 EACH IV PRN ×2 (00:11→01:37)
[2016-12-08] MEDS: 1: SODIUM CHLORIDE 0.9% 1,000 ML 2: THIAMINE INJ 100 MG, FOLIC ACID INJ 1 MG, MULTIVITA IV SCH ×2 (06:09→23:38)
[2016-12-08 07:09] LABS: INR 1.4; PT Patient Result 14.6 SECS
[2016-12-08 07:27] LABS: Calcium 8.3 MG/DL (8.5-10.1); Magnesium 1.7 MG/DL (1.8-2.4); Potassium 3.8 MMOL/L (3.5-5.1)
[2016-12-08 07:30] LABS: Albumin 2.5 G/DL (3.4-5.0); Bilirubin,Total 4.6 MG/DL (0.2-1.0); Calcium 8.2 MG/DL (8.5-10.1); Magnesium 1.7 MG/DL (1.8-2.4); Osmolality,Calculated 270.7 MOS/KG (273-304); Phosphorous 0.6 MG/DL (2.5-4.9); Potassium 3.9 MMOL/L (3.5-5.1); Total Protein 5.6 G/DL (6.4-8.3)
[2016-12-08 07:42] LABS: Basophils % 0.4 % (0.0-0.8); Eosinophils # 0.1 10*3/uL (0.0-0.87); Eosinophils % 0.9 % (0.00-10.9); Hematocrit 26.2 VOL% (42.0-52.0); Hemoglobin 9.1 GM/DL (14.0-18.0); Immature Granulocytes % 0.5 %; Immature Granulocytes Absolute 0.03 #; Lymphocytes # 1.7 10*3/uL (1.4-4.0); Mean Corpuscular HGB Conc 34.7 GM/DL (32-36); Mean Corpuscular Hemoglobin 37 PG (27-34); Mean Corpuscular Volume 106.1 FL (87-102); Mean Platelet Volume 11.3 FL (9.6-12.0); Monocytes # 0.6 10*3/uL (0.11-0.8); Monocytes % 10.5 % (1.7-12.7); Neutrophils # 3.2 10*3/uL (1.4-7.4); Neutrophils % 57.7 % (38.7-73.9); Platelet Count 81 T/CUMM (130-400); Red Blood Count 2.47 MC/CUMM (3.8-5.5); Red Cell Distribution Width 16.8 % (9.3-17.3); White Blood Count 5.5 T/CUMM (4-12)
[2016-12-08 08:01] LABS: Eosinophils 3 % (0-10); Hypochromasia 1+; Lymphocytes 33 % (20-55); Platelet Estimate Decreased; Segmented Neutrophils 61 % (50-85); Total Cells Counted 100
--- NOTE | 2016-12-08 08:20 | Operative Note ---
Date of procedure: 12/08/16 Pre-op diagnosis: Rectal bleeding and drop in hematocrit to 26.2% Post-op diagnosis: other (Large external and small internal hemorrhoids noted, heavy diverticulosis also a potential source for the patient's bleeding mostly on the left side, argon plasma coagulation was used on AVMs proximally in the colon which may be a third source for bleeding in this patient. If the patient should have repeated bleeding in the future would suggest tagged red blood cell scan to localize the source in the colon. Incidental removal of 2 polyps 1 of these was fairly large in the descending.) Procedure: PROCEDURE: Colonoscopy with argon plasma coagulation for hemostasis and hot biopsy polypectomy with snare polypectomy and REFERRING PHYSICIAN: Sheng Lynn MD INDICATIONS: Patient with alcoholic cirrhosis with dropped to hematocrit of 26.2%, maroon and bright red blood per rectum earlier in the admission. The prior H&P was reviewed and interrim changes are as noted: No change from GI consultation this visit ENDOSCOPIST: Raymond Swanson MD ENDOSCOPE: Olympus Video 100 System colonoscope COLON PREPARATION: 238 gm of PEG containing laxative and 1.9 liters of gatoraid/sports drink and dulcolax 15 mg q8 hours x 3 ASA CLASS: 3 EXAM: CV: regular rate and rhythm Respiratory: Clear without wheezes Abdominal: active bowel sounds Rectal: Very external/internal hemorrhoids good tone, no fissures or fistulas MEDICATION: Per nursing anesthesia protocol, see their notes PROCEDURE: After discussion of the potential risks and benefits of colonoscopy, the informed consent was obtained, from patient or health care surrogate. The patient was then placed in the left lateral decubitus position where sedation was achieved as noted above. Rectal examination was followed by insertion of the colonoscope. The colonoscope was passed under direct visualization to the cecum. Advancement was facilitated by insertion/withdrawl techniques, abdominal pressure and patient positioning. Once the cecal pole was reached, slow withdrawal was performed with the findings as noted below. The patient tolerated the procedure well and without complication. QUALITY OF PREP: Excellent WITHDRAWL TIME: 10 minutes 16 seconds BIOPSIES: Ascending polyp, descending polyp. PHOTOGRAPHS: Obtained FINDINGS: The musoca appeared normal in the following regions: rectum, sigmoid colon, splenic flexure, transverse colon, hepatic flexure, and cecum. Position within the cecum was confirmed by ileocecal valve, appendiceal oriface , and the convergence of folds (crows foot). No colitis, or mass was noted throughout the colon. Heavy left-sided diverticulosis noted, possibly source of the patient's bleeding. 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 See photos. Patient also had a 1.5 cm polyp noted in the descending colon removed by snare polypectomy this was pedunculated, a smaller 7 mm polyp was removed by hot biopsy in the ascending colon as well. Intubation of the TI was achieved x 5 cm with normal appearence, there was no bleeding coming from proximal in the small bowel. Moderate size internal hemorrhoids and large external hemorrhoids were noted on removal of the scope. These were also thought to be a potential source for bleeding. IMPRESSION: Large external and small internal hemorrhoids noted, heavy diverticulosis also a potential source for the patient's bleeding mostly on the left side, argon plasma coagulation was used on AVMs proximally in the colon which may be a third source for bleeding in this patient. If the patient should have repeated bleeding in the future would suggest tagged red blood cell scan to localize the source in the colon. Incidental removal of 2 polyps 1 of these was fairly large in the descending. RECOMMENDATIONS: High fiber diet Repeat colonosocopy will be in 3-10 years depending on pathology of the polyps removed Citrucel 1 tablespoon in 12 oz juice BID: 1 bottle: :11 Follow up by phone for biopsy results in 1-2 weeks by phone Raymond Swanson MD COPY TO: Sheng Lynn MD Anesthesia: MAC Surgeon / Physician: Raymond Swanson Estimated blood loss: minimal Specimens: other (Ascending and descending polyps) Condition: stable Disposition: post procedure unit ([facility] Suite) Results - Labs CBC & BMP: 12/08/16 07:24 12/08/16 05:35 Discharge Plan - Discharge Medications No Action Naproxen Sodium [Aleve] 440 mg PO Q4HR PRN PRN Reason: Abdominal Pain Aspirin EC Tab 81 mg PO QOTHER DAY - Follow Up or Referral - Forms/Instructions
--- NOTE | 2016-12-08 08:22 | Gastrointestinal Progress Note ---
Assessment and Plan (1) Alcoholic hepatitis Status: Chronic Assessment and plan: The patient has a bilirubin that is up to 7.2 along with an AST that is approximately 4 times greater than the ALT all consistent with cirrhosis especially along with the patient's low platelet level. This is most likely due to his alcohol intake which he characterizes as about 4 of the 32 ounce beers per day followed by a bottle of wine as well. He states that he does not drink whiskey. He has been drinking since he was 16. He did have a previous episode of upper GI bleeding back in 2005-11 years ago and that he does not recall what was discovered at that time but "nothing major". He is not presenting with melena but rather bright red blood per rectum and some maroon clots. I suspect lower GI bleed. If we do not find anything to explain the anemia we may proceed with a upper endoscopy especially given this patient's NSAID use and the potential for varices given his cirrhosis. Risks and benefits of the colonoscopy and possibly EGD to follow were presented to the patient and include but are not limited to: Bleeding, infection, perforation, cardiac and pulmonary compromise. We will proceed with colonoscopy tomorrow after clear liquid diet today and a MiraLAX prep given the patient's excellent kidney function. 12/06/16--this patient has serology demonstrating no evidence of viral hepatitis. He does not have autoimmune hepatitis on the basis of his negative ROXANNA. I suspect he probably has long-standing alcoholic cirrhosis. Given his recent somewhat bizarre behavior I will go ahead and assess his ammonia level to see if there is hepatic encephalopathy present as I suspect there might be. 12/07/16--Ammonia level surprisingly low at 30, this patient seems a lot more calm today. He has been having clear liquids all day and has been cleared by cardiology to undergo his colonoscopy tomorrow. He seems to be doing adequately at this point. Colonoscopy is planned for tomorrow morning, again. 12/08/16--The patient needs to discontinue drinking, he does not appear to be having any further bleeding from below his alcoholic hepatitis is slightly improving over time as he maintains his sobriety here in the hospital. Current Visit: Yes (2) Jaundice Status: Acute Assessment and plan: There does not appear to be any ductal dilatation on ultrasound. This patient is not going to benefit from ERCP, we need to watch his liver function tests as he improves over time and abstinence from alcohol. Will ask laboratory to run a direct bilirubin and I would not be surprised if this was half indirect/half direct bili. Supportive care is all that is needed for the present time. He states that urine is been jaundiced for the last 2-3 months. Ultrasound fails to show any masses. I will check an AFP level, looking for evidence of hepatocellular carcinoma. I agree with checking this patient for hepatitis A, B , and C. We will also check him for alpha-1 antitrypsin deficiency, autoimmune hepatitis, and hemochromatosis. 12/06/16--as mentioned above there is no ductal dilatation previously noted on the patient's ultrasound, we are checking the patient's bilirubin tomorrow to see if this is improved at all, the etiology appears more more like a alcoholic cirrhosis. The patient is expressing some very bizarre behavior which likely goes along with hepatic encephalopathy. Rechecking his ammonia level at this time. Would like to proceed with colonoscopy tomorrow if patient can be cleared from a Cardiologic standpoint to undergo the procedure. Would strongly suggest holding off on feeding the patient in the interim and giving him another flush tonight to see if we can be ready in case cardiology clears him by noon tomorrow for potential colonoscopy to follow. We will continue to follow his liver function tests tomorrow. 12/07/16-- The bilirubin is slowly improving now down from 7.2-->5.8 with supportive care. Alkaline phosphatase is actually fairly normal at 167, I suspect that his liver function tests will improve even further with improved nutritional intake after the colonoscopy. Patient's potassium level is 3.2 up to 3.3 now status post multiple runs of K riders and oral potassium. We will continue oral potassium tomorrow prior to this colonoscopy--note this patient's INR is 1.3 at this point and he appears to be doing quite well. 12/08/16--as noted above. Current Visit: Yes (3) Acute posthemorrhagic anemia Status: Acute Assessment and plan: I suspect this patient probably has a GI bleeding from a diverticulum versus hemorrhoidal bleeding with his history of possible varices. AVM in the colon versus cancer or venous polyps with bleeding are all in the differential as well. We will evaluate tomorrow with colonoscopy. Again if the colonoscopy fails to show any significant findings would proceed to do a upper endoscopy the next day. 12/06/16--Procedure canceled due to SVT with heart rate into the 180 range. Patient is being evaluated by Dr. Jaime of cardiology and we may consider attempting the colonoscopy tomorrow if this can be done safely in his opinion. The patient is to undergo echocardiography and evaluation by telemetry of rate control starting with metoprolol 25 mg daily. 12/07/16--We Will proceed with colonoscopy tomorrow now that the patient has been assessed by cardiology. See Dr. Jaime's notes for full details. Hematocrit is remained stable at this point currently at 29.3%. 12/08/16--hematocrit is slightly lower than yesterday but there is no evidence for GI bleeding from the colon. Colonoscopy results are as follows: Large external and small internal hemorrhoids noted, heavy diverticulosis also a potential source for the patient's bleeding mostly on the left side, argon plasma coagulation was used on AVMs proximally in the colon which may be a third source for bleeding in this patient. If the patient should have repeated bleeding in the future would suggest tagged red blood cell scan to localize the source in the colon. Incidental removal of 2 polyps 1 of these was fairly large in the descending. Current Visit: Yes (4) Lower GI bleeding Status: Acute Assessment and plan: As mentioned above. We will proceed with colonoscopy tomorrow to establish the etiology of the bleeding source. Agree with watching this patient carefully for possible seizure disorder/withdrawal seizures. 12/06/16--Continue to observe as we prep for the colonoscopy. Unfortunately patient had some cheeseburger today for this will not ruin our ability to evaluate him endoscopically. 12/07/16--Await colonoscopy tomorrow. Hopefully will be able to find a source for this patient's bleeding. 12/08/16--as noted above. Current Visit: Yes Gastroenterology - PN: Subj Interval history: Patient was cleaned yesterday but the colonoscopy put off until today due to time pressure, and need for Cardiologic clearance. The patient has been cleared now and colonoscopy demonstrated the following: Large external and small internal hemorrhoids noted, heavy diverticulosis also a potential source for the patient's bleeding mostly on the left side, argon plasma coagulation was used on AVMs proximally in the colon which may be a third source for bleeding in this patient. If the patient should have repeated bleeding in the future would suggest tagged red blood cell scan to localize the source in the colon. Incidental removal of 2 polyps 1 of these was fairly large in the descending. Exam (Progress Note) - Constitutional Vitals: Period Temp Pulse Resp BP Sys/Rivera Pulse Ox Last 24 Hr 97.2 F-98.0 F 74-104 16-20 116-136/68-84 91-99 General appearance: mild distress - Head Head exam: Present: normocephalic, atraumatic - Eye Eye exam: Present: EOMI - Respiratory Respiratory exam: Present: clear to auscultation bilaterally - Cardiovascular Cardiovascular exam: Present: regular rate and rhythm - GI/Abdominal GI/Abdominal exam: Present: normal bowel sounds, soft. Absent: distended, tenderness, rebound - Extremities Exam Extremities exam: Absent: edema - Neurological Exam Neurological exam: Present: alert, oriented X3 - Psychiatric Psychiatric exam: Present: normal affect, normal mood Results - Labs CBC & BMP: 12/08/16 07:24 12/08/16 05:35
--- NOTE | 2016-12-08 08:49 | Anesthesia Post-Op ---
Anesthesia Post OP - Post Ansesthetic Evaluation Patient seen in post op: Yes Resp: within normal limits CV: within normal limits Mental: within normal limits Temp: within normal limits [id number]: within normal limits Nausea and Vomiting: within normal limits Pain: within normal limits
--- NOTE | 2016-12-08 09:19 | Hospitalist Progress Note ---
Assessment and Plan (1) Nicotine addiction Status: Acute Assessment and plan: The patient is a current smoker. Spoke with both patient and family members on the need of cessation. Spoke with patient on the placement of nicotine patch during hospitalization; patient is in agreement. Will order nicotine patch daily. Current Visit: Yes (2) Alcohol abuse Status: Chronic Assessment and plan: The patient reports current alcohol use. His brother reports that he "drinks daily". The patient's brother reports that he does have "issues" when he does not drink. The patient was a initially not forthcoming about this. We will place the patient on CIWA precautions. We will monitor patient closely. 12/07-CIWA precautions remain in order. We will start the patient on Librium 25 mg 3 times daily. Current Visit: Yes (3) Anemia Status: Acute Assessment and plan: Hemoglobin and hematocrit at the time of admission 11.0 and 31.0. We will order serial hemoglobin and hematocrits every 8 hours and monitor for changes. We will type and screen and monitor closely. 12/07-Hemoglobin and hematocrit stable at 10.2 and 29.3. 12/08-hemoglobin and hematocrit noted at 9.1/26.6. No further episodes of bleeding reported; however this is a one-point drop from 10.2 and 29.3 on yesterday. We will monitor closely. Current Visit: Yes (4) Lower GI bleeding Status: Acute Assessment and plan: We will keep the patient n.p.o. We will start PPIs, DVT prophylaxis, and consult gastroenterology to evaluate. 12/07-Colonoscopy cancelled on yesterday at the the patient was discovered to be in SVT in the GI lab. The patient was seen and evaluated by cardiology on yesterday and started on a low-dose beta-rashard. The patient experienced some cardiac dysrhythmias on late yesterday afternoon however the patient's potassium and magnesium was noted to be low. The deficits were corrected; and no further episodes of cardiac dysrhythmias were noted. Agree with GIs plan for colonoscopy in a.m. 12/08-colonoscopy this a.m. per GI. Current Visit: Yes Hospitalist: Subjective Interval history: Patient seen and examined; chart reviewed. No significant overnight events reported per nursing staff. Colonoscopy this a.m. per GI. Exam - Constitutional Vitals: Period Temp Pulse Resp BP Sys/Rivera Pulse Ox Last 24 Hr 97.2 F-98.0 F 74-104 16-20 115-136/61-84 91-100 General appearance: normal weight, no acute distress - Head Head exam: Present: normal inspection, normocephalic, atraumatic - Eye Eye exam: Present: EOMI, conjunctival injection, other (Jaundice to sclera) Pupils: Present: GREGORY, normal accommodation - ENT ENT exam: Present: normal exam, normal external ear exam, normal oropharynx - Neck Neck exam: Present: normal inspection. Absent: lymphadenopathy, meningismus, thyromegaly - Respiratory Respiratory exam: Present: clear to auscultation bilaterally. Absent: rales, rhonchi, stridor, wheezes - Cardiovascular Cardiovascular exam: Present: regular rate and rhythm. Absent: carotid bruit, diastolic murmur, gallop, JVD, rubs, systolic murmur - GI/Abdominal GI/Abdominal exam: Present: normal bowel sounds, soft. Absent: tenderness - Extremities Exam Extremities exam: Present: normal inspection, normal capillary refill, full ROM. Absent: edema - Back Exam Back exam: Present: normal inspection - Neurological Exam Neurological exam: Present: alert, oriented X3, CN II-XII intact - Psychiatric Psychiatric exam: Present: normal affect, normal mood - Skin Skin exam: Present: normal color, warm, dry Results - Labs CBC & BMP: 12/08/16 07:24 12/08/16 05:35 Lab Results: I have reviewed the past 24 hour labs
[2016-12-08] MEDS ORDERED: SODIUM PHOSPHATE INJ 30 MMOL in SODIUM CHLORIDE 0.9% 250 ML IV ONE (09:30)
[2016-12-08] MEDS: INSULIN LISPRO 100 UNIT/ML SUBCUT SCH ×4 (10:31→20:05)
[2016-12-08] MEDS: NICOTINE 21 MG/24 HR PATCH TRANSDERM SCH (10:32)
[2016-12-08] MEDS: PANTOPRAZOLE 40 MG VIAL IV SCH (10:32)
[2016-12-08] MEDS: LACTULOSE 20 GM/30 ML UDCUP PO SCH ×2 (10:33→20:29)
[2016-12-08] MEDS: chlordiazePOXIDE 10 MG CAPSULE PO SCH ×3 (10:33→20:29)
[2016-12-08] MEDS: METOPROLOL SUCCINATE XL 50 MG TABLET PO SCH (10:33)
[2016-12-08] MEDS ORDERED: PROPOFOL 200 MG/20 ML VIAL IV ONE (16:40)
[2016-12-08] MEDS ORDERED: LIDOCAINE 1% 5 ML VIAL ONE (16:40)
--- NOTE | 2016-12-08 17:22 | Cardiology Progress Note ---
Dino Garibay Vanessa RN, am scribing for, and in the presence of, Zuleika Jaime DO 17 :22. Assessment and Plan - Time spent with patient Time spent with patient: Greater than 30 minutes (1) Nonsustained ventricular tachycardia Status: Acute Assessment and plan: Episode of nonsustained ventricular tachycardia overnight. Echocardiogram today with preserved EF but mid and distal inferior wall hypokinesis. No more ectopy with increase in beta-rashard Current Visit: Yes (2) SVT (supraventricular tachycardia) Status: Acute Assessment and plan: No recurrent SVT per cardiac monitoring strips. SVT episode yesterday most likely contributed to electrolyte imbalances. Hypomagnesemia is resolved today. He does remain hypokalemic today, and potassium is being repleted with IV KCl protocol. Continues in normal sinus rhythm Current Visit: Yes (3) Lower GI bleeding Status: Acute Assessment and plan: Presented to ED complaining of bright red bleeding per rectum. Denies further bleeding since hospital admission. Current Visit: Yes (4) Anemia Status: Acute Assessment and plan: Posthemorrhagic anemia. Hematocrit remained stable and is 29.3 today. Patient has not required blood transfusion. Reports he is not having any more BRBPR. Monitor closely. Current Visit: Yes (5) Smoker Status: Chronic Assessment and plan: Tobacco cessation counseling. NicoDerm patch has been provided. Current Visit: Yes (6) Hypertension Status: Chronic Assessment and plan: Well controlled today.. Continue antihypertensive regimen, and adjust medication as indicated in medical condition evolves. Current Visit: Yes (7) Diabetes Status: Chronic Assessment and plan: He does not routinely take medication or insulin for glucose levels. Reports this is diet controlled. Defer primary management to hospital medicine service. Current Visit: Yes (8) Alcohol abuse Status: Chronic Assessment and plan: Chronic alcohol abuse. Patient has been placed on protocol for alcohol withdrawal. Current Visit: Yes (9) Alcoholic hepatitis Status: Chronic Assessment and plan: Hepatitis panel is negative, but total bilirubin 7.2, AST 204. Current Visit: Yes Cardiology - PN: Subj Interval history: PRIMARY PASTORAL COUNSELOR: NONE SUMMARY: Mr. Hudson is a 65 year old black male who has never been formally evaluated by a auditor medical claims. He has risk factors significant for: hypertension, diabetes , chronic tobaccoism, family history of CAD. Past medical history includes alcohol abuse and GI bleeding. He admits to drinking "about 4" 32 ounce beers daily and one bottle of wine daily. Patient was admitted December 05 after presenting to [facility] ED with hematochezia, cough, abdominal pain, and lightheadedness for 1 week prior. Stools positive for occult blood. X-ray of abdomen was benign. Blood work revealed total bilirubin 7.2 with AST 204, alkaline phosphatase 162, and platelet count 69,000. Patient has had some anemia but hematocrit has been stable, and he has not required blood transfusion. After admission, gastroenterology was consulted. Patient was scheduled for colonoscopy on December [address] Swanson. After arriving to GI Lab, patient was noted to have brief episode of SVT with pulse rate in the 180s with spontaneous conversion to regular rate and rhythm. Colonoscopy was canceled. Stat EKG was negative for acute ischemic finding. Patient was returned to his room. Cardiology was consulted for further evaluation of SVT. Electrolyte imbalance noted with potassium 3.1, magnesium 1.5 at time of dysrhythmia. DECEMBER 08, 2016: No further ectopy or sustained dysrhythmia per tele monitoring overnight or this morning. Pulse is 90s and regular by exam. BP 130/80. Hypokalemia is resolved this morning with K+ 3.8. He is hypomagnesemic though with Mg+ 1.7. Bilirubin and AST continue to trend downward. Ammonia is elevated today at 49. Patient is not experiencing any chest pain, dyspnea, or other anginal complaint. His hematocrit is decreased today from 29.3% to 26.2%, and patient is planned for colonscopy this morning per Dr. Swanson. There have been no telemetry event monitors. His heart rate has been good tolerating increase in beta-rashard. Nothing further to add at this time will continue to follow. Exam (Progress Note) - Constitutional Vitals: Period Temp Pulse Resp BP Sys/Rivera Pulse Ox Last 24 Hr 97.2 F-98.0 F 74-104 16-20 116-136/68-84 91-99 Exam: General: Present: No Apparent Distress HEENT: Present: Jaundice, PERRL, Mucus Membranes Moist. Absent: Pallor Neck: Present: Supple Neck, Midline Trachea, No JVD/HJR, No Bruit Cardiac: Present: Irregularly Regular, S1/S2, S4, Systolic Murmur (sounds like mild ), Tachycardia, Laterally Displaced Lungs: Present: Clear Ascult./Percussion, No Wheeze, Rales, Rhonchi. Absent: Oxygen Neuro: Present: Grossly Intact. Absent: Numbness, Tingling, Weakness, Resting Tremor, Essential Tremor Abdomen: Present: Soft, Active Bowel Sounds, No Pulsations/Bruits, Tender, Distended (Slight distention). Absent: Ascites Skin: Present: Clear. Absent: Rash, Suspicious Lesions Musculoskeletal: Present: No Fluid Collection, Normal Range of Motion Extremities: Present: No Clubbing, No Cyanosis, No Edema, Normal Upper Extr. Pulses (3+ bilaterally), Normal Lower Extr. Pulses (3+ bilaterally), Capillary Refill. Absent: Edema, Mottled Result/EKG - Labs CBC & BMP: 12/08/16 07:24 12/08/16 05:35 Lab Results: I have reviewed the past 24 hour labs Labs: Laboratory Results - last 24 hr 12/05/16 12/07/16 12/07/16 14:42 12:36 15:53 WBC RBC Hgb Hct MCV MCH MCHC RDW Plt Count MPV Neut % (Auto) Lymph % (Auto) [place] % (Auto) Eos % (Auto) Baso % (Auto) Neut # (Auto) Lymph # (Auto) [place] # (Auto) Eos # (Auto) Baso # (Auto) Total Counted Immature Gran % Nucleated RBC % Immature Gran # Segmented Neutrophils Lymphocytes Monocytes Eosinophils Nucleated RBCs # Platelet Estimate Hypochromasia Morphology Comment INR PT Patient/Control Mix Sodium Potassium Chloride Carbon Dioxide Anion Gap BUN Creatinine GFR Calculation BUN/Creatinine Ratio Glucose POC Glucose 141 H 103 Calculated Osmolality Calcium Phosphorus Magnesium Total Bilirubin AST ALT Alkaline Phosphatase Ammonia Total Protein Albumin Globulin Albumin/Globulin Ratio [id number] 165 12/07/16 12/07/16 12/08/16 17:11 20:53 05:35 WBC RBC Hgb Hct MCV MCH MCHC RDW Plt Count MPV Neut % (Auto) Lymph % (Auto) [place] % (Auto) Eos % (Auto) Baso % (Auto) Neut # (Auto) Lymph # (Auto) [place] # (Auto) Eos # (Auto) Baso # (Auto) Total Counted Immature Gran % Nucleated RBC % Immature Gran # Segmented Neutrophils Lymphocytes Monocytes Eosinophils Nucleated RBCs # Platelet Estimate Hypochromasia Morphology Comment INR 1.4 PT Patient/Control Mix 14.6 Sodium Potassium 3.3 L Chloride Carbon Dioxide Anion Gap BUN Creatinine GFR Calculation BUN/Creatinine Ratio Glucose POC Glucose 162 H Calculated Osmolality Calcium Phosphorus Magnesium Total Bilirubin AST ALT Alkaline Phosphatase Ammonia Total Protein Albumin Globulin Albumin/Globulin Ratio [id number] 12/08/16 12/08/16 12/08/16 05:35 05:35 05:35 WBC RBC Hgb Hct MCV MCH MCHC RDW Plt Count MPV Neut % (Auto) Lymph % (Auto) [place] % (Auto) Eos % (Auto) Baso % (Auto) Neut # (Auto) Lymph # (Auto) [place] # (Auto) Eos # (Auto) Baso # (Auto) Total Counted Immature Gran % Nucleated RBC % Immature Gran # Segmented Neutrophils Lymphocytes Monocytes Eosinophils Nucleated RBCs # Platelet Estimate Hypochromasia Morphology Comment INR PT Patient/Control Mix Sodium 138 136 Potassium 3.9 3.8 Chloride 103 103 Carbon Dioxide 25 24 Anion Gap 13.9 12.8 BUN 2 L 2 L Creatinine 0.50 L 0.50 L GFR Calculation 141 141 BUN/Creatinine Ratio 4.00 L 4.00 L Glucose 96 96 POC Glucose Calculated Osmolality 270.7 L 267.0 L Calcium 8.2 L 8.3 L Phosphorus 0.6 L Magnesium 1.7 L 1.7 L Total Bilirubin 4.60 H AST 170 H ALT 59 Alkaline Phosphatase 145 H Ammonia 49 H Total Protein 5.6 L Albumin 2.5 L Globulin 3.1 Albumin/Globulin Ratio 0.8 L [id number] 12/08/16 12/08/16 06:59 07:24 WBC 5.5 RBC 2.47 L Hgb 9.1 L Hct 26.2 L MCV 106.1 H MCH 37 H MCHC 34.7 RDW 16.8 Plt Count 81 L MPV 11.3 Neut % (Auto) 57.7 Lymph % (Auto) 30.0 [place] % (Auto) 10.5 Eos % (Auto) 0.9 Baso % (Auto) 0.4 Neut # (Auto) 3.2 Lymph # (Auto) 1.7 [place] # (Auto) 0.6 Eos # (Auto) 0.1 Baso # (Auto) 0.0 Total Counted 100 Immature Gran % 0.5 Nucleated RBC % 0.0 Immature Gran # 0.03 Segmented Neutrophils 61 Lymphocytes 33 Monocytes 3 Eosinophils 3 Nucleated RBCs # 0.00 Platelet Estimate Decreased Hypochromasia 1+ Morphology Comment INR PT Patient/Control Mix Sodium Potassium Chloride Carbon Dioxide Anion Gap BUN Creatinine GFR Calculation BUN/Creatinine Ratio Glucose POC Glucose 118 H Calculated Osmolality Calcium Phosphorus Magnesium Total Bilirubin AST ALT Alkaline Phosphatase Ammonia Total Protein Albumin Globulin Albumin/Globulin Ratio [id number] - EKG EKG results: interpreted by me, no acute changes EKG shows: sinus rhythm IYeni Shea, DO, personally performed the services described in this documentation, ascribed by Ana Sun RN in my presence, and it is both accurate and complete [id number] .
[2016-12-09] MEDS ORDERED: DEXTROSE 50% 25 GM/50 ML SYRINGE IV PRN (08:00)
[2016-12-09] MEDS: INSULIN LISPRO 100 UNIT/ML SUBCUT SCH ×2 (08:30→13:27)
[2016-12-09 08:31] LABS: Basophils % 0.4 % (0.0-0.8); Eosinophils # 0.1 10*3/uL (0.0-0.87); Eosinophils % 0.9 % (0.00-10.9); Hematocrit 27.4 VOL% (42.0-52.0); Hemoglobin 9.5 GM/DL (14.0-18.0); Immature Granulocytes % 0.6 %; Immature Granulocytes Absolute 0.03 #; Lymphocytes # 1.4 10*3/uL (1.4-4.0); Lymphocytes % 24.8 % (21.2-54.2); Mean Corpuscular HGB Conc 34.7 GM/DL (32-36); Mean Corpuscular Hemoglobin 36 PG (27-34); Mean Corpuscular Volume 104.6 FL (87-102); Mean Platelet Volume 10.7 FL (9.6-12.0); Monocytes # 0.7 10*3/uL (0.11-0.8); Monocytes % 11.9 % (1.7-12.7); Neutrophils # 3.4 10*3/uL (1.4-7.4); Neutrophils % 61.4 % (38.7-73.9); Platelet Count 95 T/CUMM (130-400); Red Blood Count 2.62 MC/CUMM (3.8-5.5); Red Cell Distribution Width 17.3 % (9.3-17.3); White Blood Count 5.5 T/CUMM (4-12)
[2016-12-09 08:56] LABS: Platelet Estimate Decreased
[2016-12-09] MEDS ORDERED: MAGNESIUM OXIDE 400 MG TABLET PO SCH (09:00)
[2016-12-09 09:03] LABS: Calcium 7.9 MG/DL (8.5-10.1); Magnesium 1.4 MG/DL (1.8-2.4); Osmolality,Calculated 270.8 MOS/KG (273-304); Potassium 3.5 MMOL/L (3.5-5.1)
[2016-12-09 09:06] LABS: Albumin 2.6 G/DL (3.4-5.0); Bilirubin,Total 3.9 MG/DL (0.2-1.0); Calcium 7.8 MG/DL (8.5-10.1); Magnesium 1.3 MG/DL (1.8-2.4); Osmolality,Calculated 271.7 MOS/KG (273-304); Potassium 3.2 MMOL/L (3.5-5.1); Total Protein 5.7 G/DL (6.4-8.3)
[2016-12-09] MEDS: NICOTINE 21 MG/24 HR PATCH TRANSDERM SCH (09:12)
[2016-12-09] MEDS: PANTOPRAZOLE 40 MG VIAL IV SCH (09:12)
[2016-12-09] MEDS: POTASSIUM PHOS/SOD PHOS POWDER 250 MG PACK PO SCH ×2 (09:14→13:27)
[2016-12-09] MEDS: 1: SODIUM CHLORIDE 0.9% 1,000 ML 2: THIAMINE INJ 100 MG, FOLIC ACID INJ 1 MG, MULTIVITA IV SCH (09:14)
[2016-12-09] MEDS: chlordiazePOXIDE 10 MG CAPSULE PO SCH ×2 (09:15→14:59)
[2016-12-09] MEDS: LACTULOSE 20 GM/30 ML UDCUP PO SCH (09:15)
[2016-12-09] MEDS: METOPROLOL SUCCINATE XL 50 MG TABLET PO SCH (09:15)
--- NOTE | 2016-12-09 09:56 | Discharge Summary ---
<Teresa Riverada - Last Filed: 12/09/16 09:57> Hospital Course - Hospital Course Hospital Course: This is a poor and unfortunate 65-year-old male that presented to the ED at [facility] on the morning of December 05, 2016 or evaluation of cough and headache 1 week. Patient has a medical history significant for nicotine addiction, hypertension and ffy-sblbixn-ylwtbammt diabetes mellitus. The patient reported a surgical history significant for lumbar fusion at L5 through S1. The patient reported the onset of symptoms 1 week prior to presentation. He reported that he started to have a productive cough thick and white in color and consistency. The patient's brother is present at bedside. In addition he reported that the patient started having bowel movements that contained bright red blood at least 2-3 times a day. After the brother's report of the symptoms, the patient reluctantly reported that he was also having abdominal pain which was primarily located in the center of his abdomen and lightheadedness. He became concerned when his brother continue to have the symptoms and brought him to the ED for further evaluation. The patient was assessed at the time of ED presentation. Labs were obtained; complete blood count reported white blood cell count at 8.5, hemoglobin 11.0, hematocrit 31.0, platelet count at 73. Basic metabolic profile reported sodium at 135, potassium 3.7, chloride 92, carbon dioxide 29, BUN 18, creatinine 0.90, and glucose 107. Coagulation panel reported INR 1.3. Abdominal x-ray was essentially unremarkable for any acute intra-abdominal processes. Chest x-ray reported chronic lung changes, however no acute cardiopulmonary processes were noted. The patient was subsequently admitted to the hospitalist service for continuation of care. A gastroenterology consultation was requested to evaluate and assist during the clinical encounter. CIWA precautions were initiated at the time of admission. Supportive care with protein pump inhibitors, DVT prophylaxis, and rehydration started. The patient was seen and evaluated by gastroenterology. On November 06, 2016, the patient was scheduled for colonoscopy which was subsequently canceled due to severe cardiac abnormalities which were noted prior to the start of the case. A cardiology consultation was requested to evaluate the patient's current cardiac status. Echocardiogram on December 07, 2016 reported left ventricular ejection fraction estimated at 50%, grade 1 diastolic dysfunction or impaired relaxation, mid and distal inferior wall hypokinesis and mild thinning of the ventricle was noted. The patient was subsequently started on a beta-rashard and cleared for his colonoscopy. On December 08, 2016, the patient underwent colonoscopy with argon plasma coagulation for hemostasis and hot biopsy polypectomy with snare polypectomy under the direction of Dr. Raymond Swanson; which was significant for the presence of both large external and small internal hemorrhoids, heavy diverticulosis, AVMs within the colon, and large polyps noted in the descending colon. The patient's condition gradually improved. The patient has not experienced any significant overnight events. The patient's hemoglobin and hematocrit are stable today at 9.5/27.4. Today, we feel that he is indeed appropriate for discharge to follow-up with his primary care physician as indicated. Spoke with the patient in great detail regarding the need to refrain from alcohol use. The patient verbalizes understanding of the instructions. In addition, the patient has been instructed to follow-up by phone for his biopsy results in 1-[address] Swanson at . Diagnosis - Discharge Diagnosis (1) Nicotine addiction Status: Acute (2) Alcohol abuse Status: Chronic (3) Anemia Status: Acute (4) Lower GI bleeding Status: Acute Discharge Plan - Discharge Medications No Action Naproxen Sodium [Aleve] 440 mg PO Q4HR PRN PRN Reason: Abdominal Pain Aspirin EC Tab 81 mg PO QOTHER DAY - Follow Up or Referral - Forms/Instructions Exam - Constitutional Vitals: Period Temp Pulse Resp BP Sys/Rivera Pulse Ox Last 24 Hr 97.1 F-97.7 F 78-85 18-22 116-126/69-84 95-100 Discharge Results Procedures and tests throughout hospitalization: Pending Orders 12/06/16 14:32 Occult Blood, Stool Routine 12/07/16 04:00 Occult Blood, Stool Labs on day of discharge: Labs from last 24 hours 12/09/16 12/09/16 12/09/16 08:19 08:19 08:19 WBC 5.5 RBC 2.62 L Hgb 9.5 L Hct 27.4 L MCV 104.6 H MCH 36 H MCHC 34.7 RDW 17.3 Plt Count 95 L MPV 10.7 Neut % (Auto) 61.4 Lymph % (Auto) 24.8 [place] % (Auto) 11.9 Eos % (Auto) 0.9 Baso % (Auto) 0.4 Neut # (Auto) 3.4 Lymph # (Auto) 1.4 [place] # (Auto) 0.7 Eos # (Auto) 0.1 Baso # (Auto) 0.0 Immature Gran % 0.6 Nucleated RBC % 0.0 Immature Gran # 0.03 Nucleated RBCs # 0.00 Platelet Estimate Decreased Immature Plt Fraction 0.0 Sodium 137 138 Potassium 3.5 3.2 L Chloride 105 104 Carbon Dioxide 23 23 Anion Gap 12.5 14.2 BUN 1 L 1 L Creatinine 0.50 L 0.60 L GFR Calculation 140 130 BUN/Creatinine Ratio 2.00 L 1.00 L Glucose 127 H 125 H POC Glucose Calculated Osmolality 270.8 L 271.7 L Calcium 7.9 L 7.8 L Phosphorus 2.0 L Magnesium 1.4 L 1.3 L Total Bilirubin 3.90 H AST 207 H ALT 74 H Alkaline Phosphatase 208 H Total Protein 5.7 L Albumin 2.6 L Globulin 3.1 Albumin/Globulin Ratio 0.8 L 12/09/16 12/08/16 12/08/16 06:47 19:59 15:23 WBC RBC Hgb Hct MCV MCH MCHC RDW Plt Count MPV Neut % (Auto) Lymph % (Auto) [place] % (Auto) Eos % (Auto) Baso % (Auto) Neut # (Auto) Lymph # (Auto) [place] # (Auto) Eos # (Auto) Baso # (Auto) Immature Gran % Nucleated RBC % Immature Gran # Nucleated RBCs # Platelet Estimate Immature Plt Fraction Sodium Potassium Chloride Carbon Dioxide Anion Gap BUN Creatinine GFR Calculation BUN/Creatinine Ratio Glucose POC Glucose 143 H 140 H 158 H Calculated Osmolality Calcium Phosphorus Magnesium Total Bilirubin AST ALT Alkaline Phosphatase Total Protein Albumin Globulin Albumin/Globulin Ratio 12/08/16 11:53 WBC RBC Hgb Hct MCV MCH MCHC RDW Plt Count MPV Neut % (Auto) Lymph % (Auto) [place] % (Auto) Eos % (Auto) Baso % (Auto) Neut # (Auto) Lymph # (Auto) [place] # (Auto) Eos # (Auto) Baso # (Auto) Immature Gran % Nucleated RBC % Immature Gran # Nucleated RBCs # Platelet Estimate Immature Plt Fraction Sodium Potassium Chloride Carbon Dioxide Anion Gap BUN Creatinine GFR Calculation BUN/Creatinine Ratio Glucose POC Glucose 156 H Calculated Osmolality Calcium Phosphorus Magnesium Total Bilirubin AST ALT Alkaline Phosphatase Total Protein Albumin Globulin Albumin/Globulin Ratio DS: Provider Date of admission: 12/05/16 10:25 Primary care physician: . No PCP Attending physician on admission: Derick Hall MD Consults: 12/05/16 10:26 Consult to Physician [CONS] Routine Comment: Consulting Provider: Raymond Swanson When should Consulting Provider be notified: Now Consult to Specialist Group: Gastroenterology 12/05/16 12:13 Consult to Dietitian [CONS] Routine Reason for Dietitian: Other Consult Comment: weight loss 12/06/16 13:29 Consult to Physician [CONS] Routine Comment: tachy SVT in GI lab Consulting Provider: Raymond Rivera Person Notified: JOMAR Date Notified: 12/06/16 Time Notified: 13:35 Discharging clinician: Darya Rivera CNP <Reagan Neff - Last Filed: 12/09/16 10:48> Exam - Constitutional General appearance: normal weight - Head Head exam: Present: normocephalic, atraumatic - Eye Eye exam: Present: EOMI Pupils: Present: GREGORY - Respiratory Respiratory exam: Present: clear to auscultation bilaterally - Cardiovascular Cardiovascular exam: Present: regular rate and rhythm, other (Occasional ectopy the patient has ventricular premature complexes on the monitor) - GI/Abdominal GI/Abdominal exam: Present: normal bowel sounds, soft - Extremities Exam Extremities exam: Present: full ROM - Neurological Exam Neurological exam: Present: alert, oriented X3, CN II-XII intact - Psychiatric Psychiatric exam: Present: normal affect, normal mood - Skin Skin exam: Present: normal color, warm, dry
--- NOTE | 2016-12-09 10:06 | XRay Report ---
History: Cough Date: 12/09/2016 Study: Chest x-ray AP portable Comparison exam: December 05, 2016 chest x-ray The cardiomediastinal silhouette and pulmonary vasculature are stable. There is some minor strandy and hazy left lower lobe atelectasis/infiltrate. The lungs and pleural spaces are otherwise clear. Osseous structures are similar. Impression: Mild left lower lobe atelectasis/infiltrate. Early pneumonia should be considered. Shallow breath. Otherwise unchanged PROCEDURE INTERPRETED AT [facility] DEPARTMENT OF RADIOLOGY Final Report Signed by: Dr. Nona Ontiveros
--- NOTE | 2016-12-09 10:57 | Discharge Summary ---
Hospital Course - Hospital Course Hospital Course: This is a poor and unfortunate 65-year-old male that presented to the ED at [facility] on the morning of December 05, 2016 or evaluation of cough and headache 1 week. Patient has a medical history significant for nicotine addiction, hypertension and cay-xnnyugd-pbvkqugqm diabetes mellitus. The patient reported a surgical history significant for lumbar fusion at L5 through S1. The patient reported the onset of symptoms 1 week prior to presentation. He reported that he started to have a productive cough thick and white in color and consistency. The patient's brother is present at bedside. In addition he reported that the patient started having bowel movements that contained bright red blood at least 2-3 times a day. After the brother's report of the symptoms, the patient reluctantly reported that he was also having abdominal pain which was primarily located in the center of his abdomen and lightheadedness. He became concerned when his brother continue to have the symptoms and brought him to the ED for further evaluation. The patient was assessed at the time of ED presentation. Labs were obtained; complete blood count reported white blood cell count at 8.5, hemoglobin 11.0, hematocrit 31.0, platelet count at 73. Basic metabolic profile reported sodium at 135, potassium 3.7, chloride 92, carbon dioxide 29, BUN 18, creatinine 0.90, and glucose 107. Coagulation panel reported INR 1.3. Abdominal x-ray was essentially unremarkable for any acute intra-abdominal processes. Chest x-ray reported chronic lung changes, however no acute cardiopulmonary processes were noted. The patient was subsequently admitted to the hospitalist service for continuation of care. A gastroenterology consultation was requested to evaluate and assist during the clinical encounter. CIWA precautions were initiated at the time of admission. Supportive care with protein pump inhibitors, DVT prophylaxis, and rehydration started. The patient was seen and evaluated by gastroenterology. On November 06, 2016, the patient was scheduled for colonoscopy which was subsequently canceled due to severe cardiac abnormalities which were noted prior to the start of the case. A cardiology consultation was requested to evaluate the patient's current cardiac status. Echocardiogram on December 07, 2016 reported left ventricular ejection fraction estimated at 50%, grade 1 diastolic dysfunction or impaired relaxation, mid and distal inferior wall hypokinesis and mild thinning of the ventricle was noted. The patient was subsequently started on a beta-rashard and cleared for his colonoscopy. On December 08, 2016, the patient underwent colonoscopy with argon plasma coagulation for hemostasis and hot biopsy polypectomy with snare polypectomy under the direction of Dr. Raymond Swanson; which was significant for the presence of both large external and small internal hemorrhoids, heavy diverticulosis, AVMs within the colon, and large polyps noted in the descending colon. The patient's condition gradually improved. The patient has not experienced any significant overnight events. The patient's hemoglobin and hematocrit are stable today at 9.5/27.4. Today, we feel that he is indeed appropriate for discharge to follow-up with his primary care physician as indicated. Spoke with the patient in great detail regarding the need to refrain from alcohol use. The patient verbalizes understanding of the instructions. In addition, the patient has been instructed to follow-up by phone for his biopsy results in 1-[address] Swanson at . Discharge Plan - Discharge Data Disposition: Disch/Xfer to Snf Condition at Discharge: Stable Discharge Diet: diabetic diet, heart healthy Activity: increase activity as tolerated Hygiene: may shower Weight Bearing at Discharge: weight bear as tolerated Contact your physician if you experience:: fever over 101, Difficulty voiding, Nausea/Vomiting, Shortness of breath, pain uncontrolled by pain medications - Discharge Medications New Multivitamin [Chewable-Mayra] 1 each PO DAILY #30 tab.chew Continue Naproxen Sodium [Aleve] 440 mg PO Q4HR PRN PRN Reason: Abdominal Pain Aspirin EC Tab 81 mg PO QOTHER DAY - Follow Up or Referral - Forms/Instructions Exam - Constitutional Vitals: Period Temp Pulse Resp BP Sys/Rivera Pulse Ox Last 24 Hr 97.1 F-97.7 F 78-85 18-22 116-126/69-84 95-100 Discharge Results Procedures and tests throughout hospitalization: Pending Orders 12/06/16 14:32 Occult Blood, Stool Routine 12/07/16 04:00 Occult Blood, Stool Labs on day of discharge: Labs from last 24 hours 12/09/16 12/09/16 12/09/16 08:19 08:19 08:19 WBC 5.5 RBC 2.62 L Hgb 9.5 L Hct 27.4 L MCV 104.6 H MCH 36 H MCHC 34.7 RDW 17.3 Plt Count 95 L MPV 10.7 Neut % (Auto) 61.4 Lymph % (Auto) 24.8 [place] % (Auto) 11.9 Eos % (Auto) 0.9 Baso % (Auto) 0.4 Neut # (Auto) 3.4 Lymph # (Auto) 1.4 [place] # (Auto) 0.7 Eos # (Auto) 0.1 Baso # (Auto) 0.0 Immature Gran % 0.6 Nucleated RBC % 0.0 Immature Gran # 0.03 Nucleated RBCs # 0.00 Platelet Estimate Decreased Immature Plt Fraction 0.0 Sodium 137 138 Potassium 3.5 3.2 L Chloride 105 104 Carbon Dioxide 23 23 Anion Gap 12.5 14.2 BUN 1 L 1 L Creatinine 0.50 L 0.60 L GFR Calculation 140 130 BUN/Creatinine Ratio 2.00 L 1.00 L Glucose 127 H 125 H POC Glucose Calculated Osmolality 270.8 L 271.7 L Calcium 7.9 L 7.8 L Phosphorus 2.0 L Magnesium 1.4 L 1.3 L Total Bilirubin 3.90 H AST 207 H ALT 74 H Alkaline Phosphatase 208 H Total Protein 5.7 L Albumin 2.6 L Globulin 3.1 Albumin/Globulin Ratio 0.8 L 12/09/16 12/08/16 12/08/16 06:47 19:59 15:23 WBC RBC Hgb Hct MCV MCH MCHC RDW Plt Count MPV Neut % (Auto) Lymph % (Auto) [place] % (Auto) Eos % (Auto) Baso % (Auto) Neut # (Auto) Lymph # (Auto) [place] # (Auto) Eos # (Auto) Baso # (Auto) Immature Gran % Nucleated RBC % Immature Gran # Nucleated RBCs # Platelet Estimate Immature Plt Fraction Sodium Potassium Chloride Carbon Dioxide Anion Gap BUN Creatinine GFR Calculation BUN/Creatinine Ratio Glucose POC Glucose 143 H 140 H 158 H Calculated Osmolality Calcium Phosphorus Magnesium Total Bilirubin AST ALT Alkaline Phosphatase Total Protein Albumin Globulin Albumin/Globulin Ratio 12/08/16 11:53 WBC RBC Hgb Hct MCV MCH MCHC RDW Plt Count MPV Neut % (Auto) Lymph % (Auto) [place] % (Auto) Eos % (Auto) Baso % (Auto) Neut # (Auto) Lymph # (Auto) [place] # (Auto) Eos # (Auto) Baso # (Auto) Immature Gran % Nucleated RBC % Immature Gran # Nucleated RBCs # Platelet Estimate Immature Plt Fraction Sodium Potassium Chloride Carbon Dioxide Anion Gap BUN Creatinine GFR Calculation BUN/Creatinine Ratio Glucose POC Glucose 156 H Calculated Osmolality Calcium Phosphorus Magnesium Total Bilirubin AST ALT Alkaline Phosphatase Total Protein Albumin Globulin Albumin/Globulin Ratio DS: Provider Date of admission: 12/05/16 10:25 Primary care physician: . No PCP Attending physician on admission: Derick Hall MD Consults: 12/05/16 10:26 Consult to Physician [CONS] Routine Comment: Consulting Provider: Raymond Swanson When should Consulting Provider be notified: Now Consult to Specialist Group: Gastroenterology 12/05/16 12:13 Consult to Dietitian [CONS] Routine Reason for Dietitian: Other Consult Comment: weight loss 12/06/16 13:29 Consult to Physician [CONS] Routine Comment: levi LEON in GI lab Consulting Provider: Raymond Rivera Person Notified: JOMAR Date Notified: 12/06/16 Time Notified: 13:35 Discharging clinician: Reagan Neff MD
--- NOTE | 2016-12-09 11:34 | Pathology Report from [facility] ---
[facility] [place] ACCESSION # : [id number] PATIENT NAME : Sean Marks ORDERING DR : Raymond Swanson MD CLINICAL HX: GI bleed POST-OP DX: Same SPECIMEN INFO: #1 Colon polyp ascending #2 Colon polyp descending GROSS DESCRIPTION: #1 Received in formalin labeled with the patients name SEAN MARKS and #1 consists of a 0.2 x 0.3 cm red-krueger tissue fragment. Submitted in cassette #1.#2 Received in formalin labeled with the patients name SEAN MARKS and #2 consists of a red-krueger polyp measuring 0.8 x 0.6 x 0.7 cm. Sectioned and submitted in cassette #2. DIAGNOSIS FOR SEAN MARKS: #1 COLON POLYP ASCENDING: Hyperplastic mucosa with a benign lymphoid aggregate.#2 COLON POLYP DESCENDING: Tubulovillous adenoma. COLLECTED DATE: 12/08/2016 [facility] REPORT DATE: 12/09/2016 ELECTRONICALLY SIGNED BY: Lina Shepherd M.D. 12/09/2016 - 9:49:29 [facility]
[2016-12-09 12:04] VITALS: BP 107/72
== END 2016-12-09 15:49 | disposition home or self-care (01) | DRG 378 ==
LOC: N.ED 08:24 → N.EDINP 10:25 → SUATTDRO 10:25 → N.2E 11:40
PROVIDERS: ADMIT Internal Medicine; ATTEND Internal Medicine Infectious Disease

== ENCOUNTER 2017-02-13 12:48 | Inpatient (IN) ==
[2017-02-13 13:58] LABS: PT Patient Result 20.9 SECS
[2017-02-13 14:06] LABS: Basophils % 0.1 % (0.0-0.8); Eosinophils % 0.2 % (0.00-10.9); Immature Granulocytes % 1.1 %; Immature Granulocytes Absolute 0.18 #; Lymphocytes # 1.8 10*3/uL (1.4-4.0); Lymphocytes % 11.5 % (21.2-54.2); Mean Corpuscular HGB Conc 38.1 GM/DL (32-36); Mean Corpuscular Hemoglobin 36 PG (27-34); Mean Corpuscular Volume 93.9 FL (87-102); Mean Platelet Volume 10.6 FL (9.6-12.0); Monocytes # 1.1 10*3/uL (0.11-0.8); Monocytes % 6.8 % (1.7-12.7); NRBC # 0.07 10*3/uL; Neutrophils # 12.8 10*3/uL (1.4-7.4); Neutrophils % 80.3 % (38.7-73.9); Platelet Count 188 T/CUMM (130-400); Red Cell Distribution Width 21.3 % (9.3-17.3)
[2017-02-13 14:08] LABS: Hematocrit 29.1 VOL% (42.0-52.0); Hemoglobin 11.1 GM/DL (14.0-18.0)
[2017-02-13 14:16] LABS: Albumin 2.1 G/DL (3.4-5.0); Calcium 7.8 MG/DL (8.5-10.1); Osmolality,Calculated 270.4 MOS/KG (273-304); Potassium 3.5 MMOL/L (3.5-5.1); Total Protein 6.6 G/DL (6.4-8.3)
[2017-02-13 14:23] LABS: Bilirubin,Total 12.6 MG/DL (0.2-1.0)
--- NOTE | 2017-02-13 14:50 | Emergency Department Note ---
Arrival - Arrival Chief Complaint: GI Bleed/Rectal Stated Complaint: rectal bleed ED Nursing Triage Note: Pt c/o bright red rectal bleeding x 2 days with some abd discomfort. Mode of Arrival: Wheelchair Limitations: No Limitations Source: Patient, Family, RN Notes Reviewed Time Seen by Provider: 02/13/17 13:36 - History of Present Illness HPI Narrative: Patient is a 66-year-old black male with a long history of alcoholism who quit drinking about 2-1/2 months ago. The patient reports blood in his stool over the last 2 days. Blood is bright red. The patient denies nausea or vomiting. He denies abdominal pain. Patient has noticed some dark urine over the last several weeks. He states that he has had a decrease in his oral intake of both liquid and food during the last 4-5 days. There is no history of chills or fever. Patient denies any history of hepatitis. He denies ever having been told that he has cirrhosis. Onset (ago): day(s) (2) Allergies/Adverse Reactions: Allergies Allergy/AdvReac Type Severity Reaction Status Date / Time No Known Allergies Allergy Unverified 12/28/14 10:42 Home Medications: Home Medications Medication Instructions Recorded Confirmed Type Naproxen Sodium [Aleve] 440 mg PO BID PRN 12/05/16 02/13/17 History Review of System - Review of System 12 point system: reviewed and no additional remarkable complaints except as stated - Review of System Constitutional: Absent: chills, fever Gastrointestinal: Present: hematochezia. Absent: nausea, vomiting, melena Genitourinary male: Present: other (Dark urine) Medical,Surgical,& Family Hx - Medical History Cardio: History of: Hypertension No history of: Cardiac Dysrhythmia, CHF, CAD, [place], Pacemaker, PVD, Valvular Heart Disease Psychological: No history of: Anxiety Disorders, Depression Neurology: No history of: Seizures Endocrine: History of: Diabetes Mellitus (NIDDM) (states diet controlled) No history of: Thyroid Disorder Rheumatology: No history of;: Fibromyalgia Respiratory: History of: Respiratory Problems (cough) No history of: Obstructive Sleep Apnea Renal: No history of: Renal Problems Genitourinary: No history of: Kidney Stones Gastrointestinal: History of: Gastrointestinal Bleed, Hematochezia, GI Problems (lower gi bleed) No history of: GERD Musculoskeletal: No history of: Amputation, Herniated Disk Hematology: History of: Anemia, Bleeding Problems No history of: Blood Transfusion Reaction Other: History of: Miscellaneous Medical Problems (alcoholism) No history of: Cancer, HIV - Surgical History Cardiac Surgeries: Patient Denies: Cardiac Catheterization, Cardiac Surgery Abdominal Surgeries: Patient denies: Abdominal Surgery - Family History Family History: Reports;: Family Diabetes, Family Heart Disease, Family Hypertension, Family Stroke (father) - Social History Smoking Status: Current every day smoker Exam Vital Signs: Vital Signs Temperature 97.7 F 02/13/17 13:18 Pulse Rate 88 02/13/17 13:18 Respiratory Rate 18 02/13/17 13:18 Blood Pressure 113/72 02/13/17 13:18 O2 Sat by Pulse Oximetry 100 02/13/17 15:34 GENERAL: This is a chronically ill-appearing black male in no apparent distress. VITAL SIGNS: Reviewed HEENT: Head is atraumatic and normocephalic. Scleral icterus. Pupils are equal round react to light. Extraocular movements are intact. Oropharynx is benign with moist mucous membranes. NECK: Neck is soft and supple without tenderness. There are no masses. There is no lymphadenopathy. LUNGS: Lungs are clear to auscultation. Chest rises symmetrically. There is no chest wall tenderness. CV: Heart is regular rate and rhythm without murmurs rubs or gallops. ABDOMEN: Abdomen is soft, nontender to palpation. There are no abdominal abnormal masses palpated. There is no organomegaly. Bowel sounds are present and active. Rectal: Heme positive stool. Hemorrhoid is present. SKIN: Skin is warm and dry. No rash. EXTREMITIES: Patient has full range of motion without tenderness. There is no pedal edema. NEUROLOGIC: Awake alert and oriented 4. Cranial nerves II through XII are grossly intact. Motor is 5 over 5 in all extremities bilaterally. Course - Consultations Consultation #1: Discussed with hospitalist. Patient will be admitted to their service. Time: 15:39 Results - Labs CBC & BMP: 02/13/17 13:25 02/13/17 13:25 Lab Results: I have reviewed the patients labs Labs: Laboratory Tests 02/13/17 13:25 Creatinine 1.80 H Total Bilirubin 12.60 H* AST 135 H ALT 38 Alkaline Phosphatase 187 H - Diagnostic Findings Procedure: Abdominal x-ray: image reviewed by me (Nonspecific gas pattern, no free air.), Chest x-ray: image reviewed by me (Minimal increased pulmonary markings bilaterally.) Disposition Clinical Impression: Lower GI bleed, Hyperbilirubinemia, Alcoholism Case discussed with: patient Disposition: Still a Patient Condition: Stable Time of Disposition: 15:38
[2017-02-13] MEDS ORDERED: THIAMINE INJ 100 MG, FOLIC ACID INJ 1 MG, MAGNESIUM SULF INJ 2 GM, MULTIVITAMIN INJ 10 ... IV ONE (14:52)
--- NOTE | 2017-02-13 15:12 | XRay Report ---
History: Abdominal pain Date: 02/13/2017 Study: Flat and erect abdomen Comparison exam: December 05, 2016 There is no evidence of pneumoperitoneum. There is an occasional small scattered nonspecific air-fluid level without eldon bowel obstruction or gross mass lesion. Calcifications overlie either renal hilum, though these are thought to more likely be vascular. There is mild osteopenia and lumbar spondylosis. There has been previous surgical fusion of the posterior elements at the lumbosacral junction. Impression: Occasional scattered nonspecific air-fluid level which could signify gastroenteritis. No eldon bowel obstruction or gross mass lesion PROCEDURE INTERPRETED AT [facility] DEPARTMENT OF RADIOLOGY Final Report Signed by: Dr. Nona Ontiveros
--- NOTE | 2017-02-13 15:14 | XRay Report ---
History: Shortness of breath Date: 02/13/2017 Study: Chest x-ray AP portable Comparison exam: December 09, 2016 The cardiomediastinal silhouette is unremarkable. There is mild aortic arch calcification. The pulmonary vasculature is not engorged. There is some platelike subsegmental atelectasis in the lung bases. There may be a small right-sided pleural effusion. Osseous structures are unchanged. Impression: Platelike atelectasis in the lung bases. Equivocal small right pleural effusion PROCEDURE INTERPRETED AT [facility] DEPARTMENT OF RADIOLOGY Final Report Signed by: Dr. Nona Ontiveros
[2017-02-13] MEDS ORDERED: LORazepam 2 MG/1 ML VIAL IV PRN (15:46)
[2017-02-13] MEDS ORDERED: DEXTROSE 5% NACL 0.9% 1,000 ML IV SCH (16:00)
[2017-02-13] MEDS ORDERED: THIAMINE INJ 100 MG, FOLIC ACID INJ 1 MG, MULTIVITAMIN INJ 10 ML in DEXTROSE 5% NACL 0.... IV SCH (16:00)
--- NOTE | 2017-02-13 16:04 | Ultrasound Report ---
History: Hyperbilirubinemia Date: 02/13/2017 Study: Hepatic ultrasound Comparison exam: Similar study December 05, 2016 Real-time ultrasound images are captured and archived. There is a moderate amount of perihepatic ascites. The liver has a finely nodular outer contour such as that which can be seen with cirrhosis. There is no intrahepatic biliary dilatation. The common bile duct measures 3 mm diameter. There is no focal hepatic mass. There is hepatopedal flow in the portal vein. There is gross patency of the hepatic veins by color Doppler. There is a large amount of hypoechoic sludge in the lumen of the gallbladder. There is no classic shadowing gallstone. There is no gallbladder wall thickening. There is no sonographic Roger sign. The pancreas is moderately obscured by bowel gas, though no gross mass is seen. The right kidney measures 10.0 cm length and is without focal lesion. There is gross color Doppler flow to the right kidney. Impression: Moderate ascites. Mild nodular contour of the liver such as that which can be seen with cirrhosis Sludge in the gallbladder. No cholelithiasis. No sonographic Roger sign PROCEDURE INTERPRETED AT [facility] DEPARTMENT OF RADIOLOGY Final Report Signed by: Dr. Nona Ontiveros
[2017-02-13] MEDS ORDERED: SODIUM CHLORIDE 0.9% 250 ML IV PRN (16:10)
[2017-02-13] MEDS ORDERED: ONDANSETRON 4 MG/2 ML VIAL IV PRN (16:10)
[2017-02-13] MEDS ORDERED: DEXTROSE 50% 25 GM/50 ML VIAL IV PRN (16:10)
[2017-02-13] MEDS ORDERED: GLUCAGON 1 MG VIAL IM PRN (16:10)
--- NOTE | 2017-02-13 16:29 | Hospitalist History & Physical ---
Assessment and Plan - Time spent with patient Time spent with patient: Greater than 30 minutes (1) Lower GI bleed Status: Acute Assessment and plan: 02/13/17 Admit Noted in ER Heme Positive stool - Will monitor H&H (current stable 11.1 & 29.1) Alcoholism - (pt reports quit drinking 1 week ago) - Monitor for alcohol withdrawl; Thiamine, folic acid Hepatitis Panel completed on 12/05/16 - was negative repeat a.m. labs Will discuss with Dr Mac for further recommendations with care. Current Visit: Yes (2) Hyperbilirubinemia Status: Acute Current Visit: Yes (3) Jaundice Status: Acute Current Visit: No (4) Alcoholism Status: Acute Current Visit: Yes History of Present Illness Chief complaint: rectal bleeding History of present illness: Mr. Hudson is a 66 year old black male w/PMHx of heavy alcohol abuse (quit drinking 1 week ago), HTN, DM, GI Bleed, Anemia presented to the ED for further evaluation of bright red blood in stool x2-3 days. He reports mid-abdominal pain, nausea and shortness of breath with exertion x2 days. He reports vomiting x1 without hematemesis. He denies fever, chills, chest pain or cough. IN ED: WBC 16.0, H&H 11.1 & 29.1. MCH 36. MCHC 38.1. RDW 21.3. Sodium 133. BUN 28. Creatinine 1.80. Calculated Osmolality 270.4. Calcium 7.8. total bilirubin 12.60. AST 135. Alkaline Phosphatase 187. Albumin 2.1. Abd xr: occasional scattered nonspecific air-fluid level which could gastroenteritis; no eldon obstruction or mass lesion. CXR: platelike atelectasis lung bases; equivocal small right pleural effusion. LIVER US: moderate ascites; mild nodular contour of liver seen with cirrhosis; gallbladder sludge; no cholelithiasis. Reports quit drinking 1 week ago, smokes 1 pack per week, and denies drug use. Ambulates at home without any assistance Hepatitis Panel completed on 12/05/16 - Negative PCP: none After discussion with Dr Soria in ED and Dr Mac with Hospital Medicine, it was agreed to admit patient for further evaluation. Home medications will be reviewed and reconciliation to follow. Code Status discussed, patient wishes to remain FULL CODE. Home Medications Medication Instructions Recorded Confirmed Type Naproxen Sodium [Aleve] 440 mg PO BID PRN 12/05/16 02/13/17 History Allergies Allergy/AdvReac Type Severity Reaction Status Date / Time No Known Allergies Allergy Unverified 12/28/14 10:42 Medical,Surgical,& Family Hx - Medical History Cardio: History of: Hypertension No history of: Cardiac Dysrhythmia, CHF, CAD, [place], Pacemaker, PVD, Valvular Heart Disease Psychological: No history of: Anxiety Disorders, Depression Neurology: No history of: Seizures Endocrine: History of: Diabetes Mellitus (NIDDM) (states diet controlled) No history of: Thyroid Disorder Rheumatology: No history of;: Fibromyalgia Respiratory: History of: Respiratory Problems (cough) No history of: Obstructive Sleep Apnea Renal: No history of: Renal Problems Genitourinary: No history of: Kidney Stones Gastrointestinal: History of: Gastrointestinal Bleed, Hematochezia, GI Problems (lower gi bleed) No history of: GERD Musculoskeletal: No history of: Amputation, Herniated Disk Hematology: History of: Anemia, Bleeding Problems No history of: Blood Transfusion Reaction Other: History of: Miscellaneous Medical Problems (alcoholism) No history of: Cancer, HIV - Surgical History Cardiac Surgeries: Patient Denies: Cardiac Catheterization, Cardiac Surgery Abdominal Surgeries: Patient denies: Abdominal Surgery - Family History Family History: Reports;: Family Diabetes, Family Heart Disease, Family Hypertension, Family Stroke (father) - Social History Smoking Status: Current every day smoker Frequency of Alcohol Use: Frequently (Alcohol Abuse History: REPORTS quit drinking 1 week ago) Type of Drug Use: None Marital Status: Single Lives With:: Sibling (lives with brother) Functional capacity: independent ambulation 12 point system: reviewed and no additional remarkable complaints except as stated - Constitutional Constitutional: Absent: chills, fever(s) - Cardiovascular Cardiovascular: Present: dyspnea on exertion (x3-4 days). Absent: chest pain at rest, chest pain with activity, edema - Respiratory Respiratory: Absent: cough, hemoptysis - Gastrointestinal Gastrointestinal: Present: abdominal pain (mid-abdominal pain ), bloating, diarrhea, melena, nausea, vomiting (x1 ), jaundice. Absent: hematemesis - Genitourinary Genitourinary: Absent: dysuria, flank pain, hematuria - Neurological Neurological: Absent: confusion, dizziness Exam - Constitutional Vitals: Period Temp Pulse Resp BP Sys/Rivera Pulse Ox Last 24 Hr 97.7 F-97.7 F 88-88 18-18 113-113/72-72 97-100 General appearance: normal weight, no acute distress - Head Head exam: Present: normal inspection - Eye Eye exam: Present: EOMI, scleral icterus Pupils: Present: GREGORY - Neck Neck exam: Present: normal inspection. Absent: thyromegaly - Respiratory Respiratory exam: Present: clear to auscultation bilaterally. Absent: rhonchi, stridor, wheezes - Cardiovascular Cardiovascular exam: Present: regular rate and rhythm - GI/Abdominal GI/Abdominal exam: Present: distended, hypoactive bowel sounds, tenderness (mid- abdominal tenderness) - Extremities Exam Extremities exam: Present: normal inspection, full ROM. Absent: edema - Neurological Exam Neurological exam: Present: alert, oriented X3, CN II-XII intact - Psychiatric Psychiatric exam: Present: normal affect, normal mood. Absent: agitated, anxious - Skin Skin exam: Present: warm, dry, other (lower legs with very dry skin) Results - Labs CBC & BMP: 02/13/17 13:25 02/13/17 13:25 Lab Results: I have reviewed the past 24 hour labs - Diagnostic Findings Procedure: Abdominal x-ray: report reviewed by me (Occasional scattered nonspecific air-fluid levels which could signify gastroenteritis. No eldon bowel obstruction or gross mass lesion), Chest x-ray: report reviewed by me ( Platelike atelectasis in the lung bases, equal small right pleural effusion), Ultrasound: report reviewed by me (Liver: Moderate ascites; mild nodular contour of the liver such as that which can be seen with cirrhosis, sludge in gallbladder; no cholelithiasis; no sonographic guillen sign) Quality Measures - VTE Contraindication to Pharmacological VTE Prophylaxis: Active Bleeding
[2017-02-13] MEDS ORDERED: prednisoLONE 5 MG TABLET PO SCH (17:00)
[2017-02-13] MEDS ORDERED: chlordiazePOXIDE 25 MG CAPSULE PO SCH (18:00)
[2017-02-13 18:23] LABS: Hypochromasia 1+; Poikilocytosis 1+; Target Cells 1+
[2017-02-13 18:24] LABS: Platelet Estimate Normal; Tear Drop Cells Few
[2017-02-13] MEDS: chlordiazePOXIDE 25 MG CAPSULE PO SCH (18:31)
[2017-02-13] MEDS: INSULIN LISPRO 100 UNIT/ML SUBCUT SCH (18:36)
[2017-02-13 19:39] LABS: Folate 10.3 NG/ML (5.4-24.0)
[2017-02-13 20:50] LABS: Hematocrit 25.1 VOL% (42.0-52.0); Hemoglobin 9.6 GM/DL (14.0-18.0)
[2017-02-13] MEDS: PHYTONADIONE 5 MG TABLET PO SCH (23:15)
[2017-02-13] MEDS: PANTOPRAZOLE 40 MG VIAL IV SCH (23:33)
[2017-02-14] MEDS: SODIUM CHLORIDE 0.9% 1,000 ML IV SCH ×4 (00:05→16:21)
[2017-02-14] MEDS: metroNIDAZOLE INJ 500 MG in PREMIX 1 EACH IV SCH ×4 (00:05→16:22)
[2017-02-14] MEDS: INSULIN LISPRO 100 UNIT/ML SUBCUT SCH ×4 (00:12→18:43)
[2017-02-14 00:28] LABS: Hematocrit 25.3 VOL% (42.0-52.0); Hemoglobin 9.6 GM/DL (14.0-18.0)
[2017-02-14 00:52] LABS: Basophils % 0.1 % (0.0-0.8); Eosinophils # 0.1 10*3/uL (0.0-0.87); Eosinophils % 1.2 % (0.00-10.9); Hematocrit 24.7 VOL% (42.0-52.0); Hemoglobin 9.5 GM/DL (14.0-18.0); Immature Granulocytes % 0.9 %; Immature Granulocytes Absolute 0.11 #; Lymphocytes # 1.6 10*3/uL (1.4-4.0); Lymphocytes % 13.7 % (21.2-54.2); Mean Corpuscular Hemoglobin 36 PG (27-34); Mean Corpuscular Volume 93.6 FL (87-102); Mean Platelet Volume 10.4 FL (9.6-12.0); Monocytes # 0.9 10*3/uL (0.11-0.8); Monocytes % 7.6 % (1.7-12.7); NRBC # 0.06 10*3/uL; Neutrophils # 9.1 10*3/uL (1.4-7.4); Neutrophils % 76.5 % (38.7-73.9); Red Blood Count 2.64 MC/CUMM (3.8-5.5); Red Cell Distribution Width 20.9 % (9.3-17.3); White Blood Count 11.9 T/CUMM (4-12)
[2017-02-14 00:56] LABS: Mean Corpuscular HGB Conc 38.5 GM/DL (32-36); Platelet Count 153 T/CUMM (130-400)
[2017-02-14 01:06] LABS: Albumin 1.7 G/DL (3.4-5.0); Bilirubin,Total 9.4 MG/DL (0.2-1.0); Calcium 7.2 MG/DL (8.5-10.1); Total Protein 5.2 G/DL (6.4-8.3)
[2017-02-14 01:07] LABS: Osmolality,Calculated 271.4 MOS/KG (273-304); Potassium 2.7 MMOL/L (3.5-5.1)
[2017-02-14 01:08] LABS: INR 1.8; PT Patient Result 19.9 SECS
[2017-02-14] MEDS: chlordiazePOXIDE 25 MG CAPSULE PO SCH ×3 (02:05→16:21)
[2017-02-14 02:54] LABS: Barbiturates Screen,Urine Negative (Negative); Benzodiazepines Screen,Urine Positive (Negative); Cannabinoid Screen,Urine Negative (Negative); Opiate Screen,Urine Negative (Negative); Phencyclidine Screen,Urine Negative (Negative)
[2017-02-14] MEDS ORDERED: DEXTROSE 50% 25 GM/50 ML SYRINGE IV PRN (07:00)
--- NOTE | 2017-02-14 07:20 | Gastrointestinal Consult Note ---
Assessment and Plan (1) Epigastric pain Status: Acute Assessment and plan: I suspect the patient may have gastric erosions or ulcerations due to NSAID use with the Naprosyn, cannot rule out esophageal variceal bleed with symptoms do not seem to be severe enough for this to be the case., Will watch the patient and see if he requires transfer to the unit for hypotension and hematemesis or worsening blood in the stool. Stools are chestnut brown but not black and not true melena. Again I suspect this may be erosions or a peptic ulcer caused by the NSAID's versus Helicobacter pylori with or without alcoholic gastritis/ portal hypertensive gastropathy. Will perform upper endoscopy tomorrow, risks and benefits of the procedure were reviewed with the patient which include but are not limited to: Bleeding, infection, perforation, cardiac and pulmonary compromise. Current Visit: Yes (2) Alcoholic cirrhosis of liver with ascites Status: Acute Assessment and plan: The patient's bilirubin is up to 12 on admission this is improved with hydration. The common bile duct is still only 3 mm indicating this is not obstructive in nature, fortunately. The patient needs to discontinue drinking entirely. I do note that after several days off of alcohol during his last admission his bilirubin dropped from 7-->3. He denies drinking significant alcohol as an outpatient but his MCV is high as well. Current Visit: Yes (3) Upper gastrointestinal bleed Status: Acute Assessment and plan: This patient appears to have an upper GI bleeding episode on the basis of dark stools and epigastric tenderness. He has a history of NSAID use, but also has his history of alcoholism and may have esophageal varices, AVMs, gastric cancer , peptic ulcer disease and portal hypertensive gastropathy as well as Dieulafoy' s lesions potentially. Will perform upper endoscopy tomorrow to discover which of these is causing his issues. Current Visit: Yes (4) Acute posthemorrhagic anemia Status: Acute Assessment and plan: Transfusion parameters written for transfusion of 2 units should this patient's hematocrit drop to/below 24.0% Current Visit: No History of Present Illness Chief complaint: Epigastric pain, dark stools, jaundice with alcoholic hepatitis History of present illness: Mr. Hudson is a 66 year old male who has been drinking somewhat heavily since his teenage years currently characterizing his alcohol intake per day is 3-4 of the 32 ounce cans per day along with approximately 1 bottle to "1/5" of wine per day along with this. He states that over the last 4-5 months he has been experiencing worsening of the yellowing of his eyes and also darkening of his urine. Patient does not claim to have any diarrhea or constipation but over the last several days experiencing some worsening bright red blood per rectum, dark stools, and clots causing him to come to the emergency room for further evaluation. The patient has been on aspirin and Naprosyn and so may be experiencing some upper GI bleeding as well. He states that he had similar symptoms to this back in 2005 when he was admitted to a GI physician in [place], [place]. This was last time he underwent colonoscopy. He does not recall what the results were. 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 On this admission the patient is noted to have continued his Naprosyn as an outpatient, he states that he only had one drink "in a can", but states that his stools have been fairly dark recently and he is having increasing epigastric tenderness. His hematocrit over the evening is dropped from 29.1% down to 24.7% with hydration. White blood cell count is also improved from 16.0-->11.9, but despite the patient's professed lack of drinking his bilirubin on admission was up to 12.6 (note that on his last admission November of 2016 his bilirubin had peaked at 7.2 and dropped down to 3.9 by discharge) with an AST that was high at 135 which is since dropped down to 104. The alkaline phosphatase is 187 initially is dropped to 145 with hydration. Patient 's urine tox. screen was positive for benzos and is negative for alcohol right now. He claims that he sees sometimes bright red blood sometimes clots but mostly dark stools. On physical exam these are guaiac positive. He has epigastric pain right now. He appears to have fluid in his abdomen as well. Repeated ultrasound shows sludge in the gallbladder but no gallbladder wall thickening and a normal-appearing common bile duct 3 mm, now there is moderate ascites present the liver does not have any focal lesions but has a nodular contour consistent with alcoholic cirrhosis. He is having mild nausea but no vomiting, he does not state there is been any recent diarrhea or constipation, although he is complaining of his inflamed hemorrhoids. Home Medications Medication Instructions Recorded Confirmed Type Naproxen Sodium [Aleve] 440 mg PO BID PRN 12/05/16 02/13/17 History Allergies Allergy/AdvReac Type Severity Reaction Status Date / Time No Known Allergies Allergy Verified 02/13/17 18:22 Medical,Surgical,& Family Hx - Medical History Cardio: History of: Hypertension No history of: Cardiac Dysrhythmia, CHF, CAD, ND, Pacemaker, PVD, Valvular Heart Disease Psychological: No history of: Anxiety Disorders, Depression Neurology: No history of: Seizures Endocrine: History of: Diabetes Mellitus (NIDDM) (states diet controlled) No history of: Thyroid Disorder Rheumatology: No history of;: Fibromyalgia Respiratory: History of: Respiratory Problems (cough) No history of: Obstructive Sleep Apnea Renal: No history of: Renal Problems Genitourinary: No history of: Kidney Stones Gastrointestinal: History of: Gastrointestinal Bleed, Hematochezia, GI Problems (lower gi bleed) No history of: GERD Musculoskeletal: No history of: Amputation, Herniated Disk Hematology: History of: Anemia, Bleeding Problems No history of: Blood Transfusion Reaction Other: History of: Miscellaneous Medical Problems (alcoholism) No history of: Cancer, HIV - Surgical History Cardiac Surgeries: Patient Denies: Cardiac Catheterization, Cardiac Surgery Abdominal Surgeries: Patient denies: Abdominal Surgery - Family History Family History: Reports;: Family Diabetes, Family Heart Disease, Family Hypertension, Family Stroke (father) - Social History Smoking Status: Current every day smoker Frequency of Alcohol Use: Frequently Type of Drug Use: None Review of systems: Constitutional: Denies fever, chills, and vomiting but positive for nausea Eyes: Denies dry eyes, and scleral icterus HENT: Denies headaches Cardiovascular: Denies acute chest pain and claudication Respiratory: He does describe some mild shortness of breath, but no wheezing, and difficulty breathing, denies cough Gastrointestinal: As noted in the HPI Genitourinary: Denies dysuria and hematuria, he does have dark urine. Neurologic: Denies vision loss, and loss of sensation Musculoskeletal: He does complain of joint swelling, joint stiffness, and muscular weakness Psychiatric: Admits to alcoholism but no depression and lianna symptoms Heme-Lymph: Denies easy bruising, lymph node enlargement or tenderness, night sweats, excessive bleeding Allergies-immunologic: Mild pruritus but no rhinorrhea Exam - Constitutional Vitals: Period Temp Pulse Resp BP Sys/Rivera Pulse Ox Last 24 Hr 97.6 F-98.7 F 78-150 16-28 98-165/62-72 92-100 Exam: Constitutional: Well-developed, well-nourished, alert, and in no acute distress Head and face: Head: Normocephalic atraumatic Eyes: Conjunctiva without injection, the patient does have gross scleral icterus, pupils equal and round bilaterally Ears: Intact to conversation in both ears Nose: External appearance is normal, nares patent Mouth: Oral mucous membranes moist without erythema, carious dentition noted Neck: Normal appearance, no masses or tenderness, trachea midline Thyroid: Gland midline and appropriate size for age Respiratory: Normal respiratory effort, clear to auscultation without wheezes, rhonchi or rales Cardiovascular: Regular rate and rhythm, normal S1, S2, the exam is without rubs, murmurs or gallops. Gastrointestinal: Tender to palpation over the epigastrium, ascites palpated with fluid wave, normal active bowel sounds, tone normal without rigidity or guarding, no masses present, no hepatomegaly, no spleen tip felt. No rectal exam obtained. Lymphatic: Neck without adenopathy, axilla without lymphadenopathy present Musculoskeletal: Right and left lower extremities without evidence of edema Skin and subcutaneous tissue: No rashes or ulcerations noted, normal skin turgor, digits and nails without clubbing/cyanosis/deformities. Neurologic: The patient is grossly oriented to person place and time, cranial nerves show tongue movements are normal with normal tongue extrusion midline, light touch sensation is intact. Psychiatric: No hallucinations or delusions are present, does not appear depressed Results - Labs CBC & BMP: 02/14/17 00:19 02/14/17 00:19 Quality Measures - VTE Contraindication to Pharmacological VTE Prophylaxis: Active Bleeding
--- NOTE | 2017-02-14 07:37 | DUMMY REPORT TO COMPLETE ORDER ---
See report scanned to EMR
[2017-02-14] MEDS ORDERED: POTASSIUM CHLORIDE RIDER 10 MEQ in PREMIX 1 EACH IV PRN (07:55)
[2017-02-14] MEDS ORDERED: SODIUM CHLORIDE 0.9% 250 ML IV PRN (08:07)
[2017-02-14] MEDS ORDERED: THIAMINE 200 MG/2 ML VIAL IV SCH (09:00)
--- NOTE | 2017-02-14 09:28 | Nuclear Medicine Report ---
Nuclear medicine gastrointestinal bleeding scan Indication: Hemorrhage Findings: The patient was injected with blood cells tagged with 20 mCi technetium 99m and 3 mL of pyrophosphate. There is normal distribution of radiotracer on the flow images. No definite evidence of bleeding or abnormal activity is identified on the scans. Impression: No definite evidence of gastrointestinal hemorrhage. PROCEDURE INTERPRETED AT [facility] DEPARTMENT OF RADIOLOGY Final Report Signed by: Dr. Don Fam
[2017-02-14] MEDS: PANTOPRAZOLE 40 MG VIAL IV SCH ×2 (09:32→22:17)
[2017-02-14] MEDS: HYDROCORTISONE 2.5% RECTAL CREAM 30 GM TUBE TOP SCH ×3 (09:33→22:20)
[2017-02-14] MEDS: THIAMINE 100 MG TABLET PO SCH (09:33)
[2017-02-14] MEDS: PHYTONADIONE 5 MG TABLET PO SCH (09:33)
[2017-02-14] MEDS: MULTIVITAMIN (CENTRUM) TABLET PO SCH (09:33)
[2017-02-14] MEDS: FOLIC ACID 1 MG TABLET PO SCH (09:33)
[2017-02-14] MEDS ORDERED: POTASSIUM CHLORIDE INJ 50 MEQ in SODIUM CHLORIDE 0.9% 500 ML IV ONE (10:00)
--- NOTE | 2017-02-14 10:44 | Hospitalist Progress Note ---
Assessment and Plan (1) Alcoholic hepatitis Status: Chronic Current Visit: No (2) Acute posthemorrhagic anemia Status: Acute Assessment and plan: GI assisting Plan on EGD tomorrow Current Visit: No (3) Alcoholism Status: Acute Current Visit: Yes (4) Epigastric pain Status: Acute Assessment and plan: GI assisting Current Visit: Yes (5) Alcoholic cirrhosis of liver with ascites Status: Acute Assessment and plan: Bilirubin 12 on admission Trending down Current Visit: Yes Hospitalist: Subjective Interval history: No acute events overnight. Patient denies any rectal bleeding to me yesterday. Exam - Constitutional Vitals: Period Temp Pulse Resp BP Sys/Rivera Pulse Ox Last 24 Hr 97.6 F-98.7 F 78-150 16-28 98-165/62-72 92-100 General appearance: normal weight - Head Head exam: Present: normocephalic, atraumatic - Eye Eye exam: Present: EOMI Pupils: Present: GREGORY - ENT ENT exam: Present: normal exam - Neck Neck exam: Present: normal inspection. Absent: tenderness, thyromegaly - Respiratory Respiratory exam: Present: clear to auscultation bilaterally. Absent: wheezes - Cardiovascular Cardiovascular exam: Present: regular rate and rhythm - GI/Abdominal GI/Abdominal exam: Present: normal bowel sounds, soft. Absent: tenderness, rebound - Extremities Exam Extremities exam: Present: normal inspection - Back Exam Back exam: Present: normal inspection - Neurological Exam Neurological exam: Present: alert, oriented X3 - Psychiatric Psychiatric exam: Present: normal affect, normal mood - Skin Skin exam: Present: warm, intact Results - Labs CBC & BMP: 02/14/17 00:19 02/14/17 00:19 Quality Measures - VTE Contraindication to Pharmacological VTE Prophylaxis: Active Bleeding
[2017-02-14 10:49] LABS: Hematocrit 30.7 VOL% (42.0-52.0)
[2017-02-14 10:50] LABS: Hemoglobin 11.7 GM/DL (14.0-18.0)
[2017-02-14] MEDS ORDERED: THIAMINE INJ 100 MG, FOLIC ACID INJ 1 MG, MULTIVITAMIN INJ 10 ML in DEXTROSE 5% NACL 0.... IV SCH (12:00)
[2017-02-14] MEDS ORDERED: MAGNESIUM SULF RIDER 2 GM in PREMIX 1 EACH IV PRN (16:36)
[2017-02-14] MEDS ORDERED: MAGNESIUM SULF RIDER 4 GM in PREMIX 1 EACH IV PRN (16:36)
[2017-02-14 17:05] LABS: Hematocrit 27.9 VOL% (42.0-52.0)
[2017-02-14 17:08] LABS: Hemoglobin 10.7 GM/DL (14.0-18.0)
[2017-02-15] MEDS: SODIUM CHLORIDE 0.9% 1,000 ML IV SCH (02:06)
[2017-02-15] MEDS: metroNIDAZOLE INJ 500 MG in PREMIX 1 EACH IV SCH ×3 (02:07→17:08)
[2017-02-15] MEDS: INSULIN LISPRO 100 UNIT/ML SUBCUT SCH ×4 (02:35→17:56)
[2017-02-15] MEDS: chlordiazePOXIDE 25 MG CAPSULE PO SCH ×3 (02:36→17:02)
[2017-02-15 07:22] LABS: Basophils % 0.2 % (0.0-0.8); Eosinophils # 0.1 10*3/uL (0.0-0.87); Eosinophils % 0.7 % (0.00-10.9); Hematocrit 25.9 VOL% (42.0-52.0); Hemoglobin 9.9 GM/DL (14.0-18.0); Immature Granulocytes % 0.9 %; Lymphocytes # 1.6 10*3/uL (1.4-4.0); Lymphocytes % 13.4 % (21.2-54.2); Mean Corpuscular HGB Conc 38.2 GM/DL (32-36); Mean Corpuscular Hemoglobin 36 PG (27-34); Mean Corpuscular Volume 94.2 FL (87-102); Mean Platelet Volume 10.8 FL (9.6-12.0); Monocytes # 0.9 10*3/uL (0.11-0.8); Monocytes % 7.4 % (1.7-12.7); NRBC # 0.07 10*3/uL; Neutrophils % 77.4 % (38.7-73.9); Platelet Count 154 T/CUMM (130-400); Red Blood Count 2.75 MC/CUMM (3.8-5.5); White Blood Count 11.6 T/CUMM (4-12)
[2017-02-15 07:49] LABS: Albumin 1.7 G/DL (3.4-5.0); Bilirubin,Total 9.3 MG/DL (0.2-1.0); Calcium 7.5 MG/DL (8.5-10.1); Osmolality,Calculated 279.7 MOS/KG (273-304); Potassium 3.5 MMOL/L (3.5-5.1); Total Protein 5.5 G/DL (6.4-8.3)
[2017-02-15 07:58] LABS: Hypochromasia 1+; Platelet Estimate Adequate; Polychromasia Slight; Target Cells 2+
[2017-02-15 08:03] LABS: Albumin 1.7 G/DL (3.4-5.0); Bilirubin,Total 9.1 MG/DL (0.2-1.0); Calcium 7.5 MG/DL (8.5-10.1); Osmolality,Calculated 277.8 MOS/KG (273-304); Phosphorous 1.2 MG/DL (2.5-4.9); Potassium 3.4 MMOL/L (3.5-5.1); Total Protein 5.5 G/DL (6.4-8.3)
[2017-02-15 08:07] LABS: Calcium 7.3 MG/DL (8.5-10.1); Potassium 3.4 MMOL/L (3.5-5.1)
[2017-02-15 08:14] LABS: Albumin 1.7 G/DL (3.4-5.0); Bilirubin,Direct 7.39 MG/DL (0.0-0.20); Bilirubin,Total 9.4 MG/DL (0.2-1.0); Total Protein 5.5 G/DL (6.4-8.3)
[2017-02-15] MEDS ORDERED: DEXTROSE 50% 25 GM/50 ML VIAL IV PRN (08:30)
--- NOTE | 2017-02-15 08:42 | Anesthesia Post-Op ---
Anesthesia Post OP - Post Ansesthetic Evaluation Patient seen in post op: Yes Resp: within normal limits CV: within normal limits Mental: within normal limits Temp: within normal limits [id number]: within normal limits Nausea and Vomiting: within normal limits Pain: within normal limits
--- NOTE | 2017-02-15 08:44 | Operative Note ---
Date of procedure: 02/15/17 Pre-op diagnosis: Alcoholic cirrhosis, upper GI bleed, anemia Post-op diagnosis: other (This patient has retained solid food in his esophagus but not the classic "bird's beak" one would expect to the EG junction to confirm achalasia. This may represent regurgitated food from the stomach. Large amount of retained food in the stomach consistent with gastroparesis. This food went all the way down into the visualized duodenum. There was likely stasis gastritis along with erosive duodenitis both biopsied. These can be a source for bleeding.) Procedure: PROCEDURE: Esophagogastroduodenoscopy (EGD) with cold biopsy for pathology REFERRING PHYSICIAN: Enzo Neff MD INDICATIONS: Alcoholic cirrhosis, hematemesis, rule out varices, anemia with hematocrit of about 26% today the prior H&P was reviewed and interrim changes are as noted: No change from GI consultation yesterday ENDOSCOPIST: Raymond Swanson MD ENDOSCOPE: Olympus Video 100 System upper endoscope ASA CLASS: 4 EXAM: CV: regular rate and rhythm respiratory: Clear without wheezes abdominal: active bowel sounds MEDICATION: Per nursing anesthesia protocol, see their notes PROCEDURE: After discussion of the potential risks and benefits of upper endoscopy, the informed consent was obtained. The patient was then placed in the left lateral decubitus position where sedation was achieved as noted above. Esophageal intubation was performed without difficulty, and the endoscope was advanced through the esophagus, stomach and duodenum. A slow withdrawal was then performed with retroflexion in the stomach for careful inspection of the incisura angularis, fundus and cardia. The scope was then returned to a neutral position and withdrawn through the esophagus. The patient tolerated the procedure well and without complication. BIOPSIES: Gastric antrum/body and duodenum PHOTOGRAPHS: Obtained FINDINGS: Hypopharynx and Larynx: Normal except for retained food Esohagoscopy Upper and middle thirds: Retained solid food food in the esophagus, slight dilation, no varices Lower third retained solid food in the esophagus, slight dilation, no varices Esophogastric junctions: No gross evidence of a "bird's beak", EG junction appear to be without evidence of erosion/stricture, no gross evidence of esophagitis Gastroscopy: Cardia/Fundus: 2 cm hiatal hernia, fundus filled with solid food, stasis gastritis Body: Solid food, stasis gastritis, J-shaped stomach Antrum and pylorus some erosions noted here and thickening but no pyloric channel stenosis, no gross evidence of cancer, biopsies obtained Duodenoscopy: Bulb erosive duodenitis, biopsied Second and third portions: Mild erosive duodenitis, biopsied IMPRESSION: This patient has retained solid food in his esophagus but not the classic "bird's beak" one would expect to the EG junction to confirm achalasia. This may represent regurgitated food from the stomach. Large amount of retained food in the stomach consistent with gastroparesis. This food went all the way down into the visualized duodenum. There was likely stasis gastritis along with erosive duodenitis both biopsied. These can be a source for bleeding. RECOMMENDATIONS: Follow up for biopsy results in 1-2 weeks by phone [phone] Continue anti-gastroesophageal reflux measures (avoid carbonated and acidic beverages, avoid eating within 2 hours of bedtime, avoid tight fitting clothing , and elevate the front bed posts 6 inches prior to sleeping. Raymond Swanson MD COPY TO: Enzo Neff MD Anesthesia: GETA Surgeon / Physician: Raymond Swanson Estimated blood loss: minimal Specimens: other (Gastric antrum/body, duodenum) Condition: stable Disposition: post procedure unit ([facility]) Results - Labs CBC & BMP: 02/15/17 07:06 02/15/17 07:06 Discharge Plan - Discharge Medications No Action Naproxen Sodium [Aleve] 440 mg PO BID PRN PRN Reason: Pain - Follow Up or Referral - Forms/Instructions
--- NOTE | 2017-02-15 08:49 | Gastrointestinal Progress Note ---
Assessment and Plan (1) Epigastric pain Status: Acute Assessment and plan: I suspect the patient may have gastric erosions or ulcerations due to NSAID use with the Naprosyn, cannot rule out esophageal variceal bleed with symptoms do not seem to be severe enough for this to be the case., Will watch the patient and see if he requires transfer to the unit for hypotension and hematemesis or worsening blood in the stool. Stools are chestnut brown but not black and not true melena. Again I suspect this may be erosions or a peptic ulcer caused by the NSAID's versus Helicobacter pylori with or without alcoholic gastritis/ portal hypertensive gastropathy. Will perform upper endoscopy tomorrow, risks and benefits of the procedure were reviewed with the patient which include but are not limited to: Bleeding, infection, perforation, cardiac and pulmonary compromise. 02/15/17--The findings on upper endoscopy are as follows: This patient has retained solid food in his esophagus but not the classic "bird's beak" one would expect to the EG junction to confirm achalasia. This may represent regurgitated food from the stomach. Large amount of retained food in the stomach consistent with gastroparesis. This food went all the way down into the visualized duodenum. There was likely stasis gastritis along with erosive duodenitis both biopsied. These can be a source for bleeding. Biopsies taken for celiac sprue. The patient's nausea and vomiting continued despite Reglan we may want to barium swallow to look for achalasia followed by esophageal manometry if the antihypertensive appearing LES is identified. Current Visit: Yes (2) Alcoholic cirrhosis of liver with ascites Status: Acute Assessment and plan: The patient's bilirubin is up to 12 on admission this is improved with hydration. The common bile duct is still only 3 mm indicating this is not obstructive in nature, fortunately. The patient needs to discontinue drinking entirely. I do note that after several days off of alcohol during his last admission his bilirubin dropped from 7-->3. He denies drinking significant alcohol as an outpatient but his MCV is high as well. 02/15/17--patient continues to drink likely as an outpatient. He did not have esophageal varices. If his ascites worsens we can consider obtaining paracentesis. Continue to monitor LFTs at this time. The liver function tests appear to be static at this time--bilirubin is 9.4 today. Current Visit: Yes (3) Upper gastrointestinal bleed Status: Acute Assessment and plan: This patient appears to have an upper GI bleeding episode on the basis of dark stools and epigastric tenderness. He has a history of NSAID use, but also has his history of alcoholism and may have esophageal varices, AVMs, gastric cancer , peptic ulcer disease and portal hypertensive gastropathy as well as Dieulafoy' s lesions potentially. Will perform upper endoscopy tomorrow to discover which of these is causing his issues. 02/15/17--I did not see any active bleeding in the upper GI tract. There may been a Laurie-Bucio tear earlier but there was no evidence of that on today's exam. He does have some stasis gastritis noted. Biopsies are pending to look for Helicobacter pylori. Achalasia remains in the differential with the food retained in the esophagus--this may just be regurgitated up from the patient's severe gastroparesis noted today. Current Visit: Yes (4) Acute posthemorrhagic anemia Status: Acute Assessment and plan: Transfusion parameters written for transfusion of 2 units should this patient's hematocrit drop to/below 24.0% 02/15/17--no evidence of bleeding source as noted above. Current Visit: No Gastroenterology - PN: Subj Interval history: The patient had an adequate night, no new complaints. Hematocrit dropped slightly from 27-->25.9% Exam (Progress Note) - Constitutional Vitals: Period Temp Pulse Resp BP Sys/Rivera Pulse Ox Last 24 Hr 97.1 F-98.3 F 76-89 18-24 102-122/62-84 95-100 General appearance: no acute distress - Head Head exam: Present: normocephalic - Eye Eye exam: Present: EOMI - Respiratory Respiratory exam: Present: clear to auscultation bilaterally. Absent: rhonchi, stridor, wheezes - Cardiovascular Cardiovascular exam: Present: regular rate and rhythm - GI/Abdominal GI/Abdominal exam: Present: normal bowel sounds, distended, tenderness (Mild epigastric tenderness), soft. Absent: rebound - Neurological Exam Neurological exam: Present: alert, oriented X3 - Psychiatric Psychiatric exam: Present: normal affect, normal mood - Skin Skin exam: Present: warm Results - Labs CBC & BMP: 02/15/17 07:06 02/15/17 07:06
[2017-02-15] MEDS ORDERED: PROPOFOL 200 MG/20 ML VIAL IV ONE (09:00)
[2017-02-15] MEDS ORDERED: LIDOCAINE 100 MG/5 ML SYRINGE ONE (09:00)
[2017-02-15] MEDS ORDERED: SODIUM PHOSPHATE IV ONE (10:00)
[2017-02-15] MEDS ORDERED: SODIUM CHLORIDE 0.9% IV ONE (10:00)
[2017-02-15] MEDS: HYDROCORTISONE 2.5% RECTAL CREAM 30 GM TUBE TOP SCH ×2 (10:55→16:37)
[2017-02-15] MEDS: FOLIC ACID 1 MG TABLET PO SCH (10:56)
[2017-02-15] MEDS: MULTIVITAMIN (CENTRUM) TABLET PO SCH (10:56)
[2017-02-15] MEDS: THIAMINE 100 MG TABLET PO SCH (10:56)
[2017-02-15] MEDS: PHYTONADIONE 5 MG TABLET PO SCH (10:57)
[2017-02-15] MEDS: PANTOPRAZOLE 40 MG VIAL IV SCH ×2 (10:58→22:02)
[2017-02-15] MEDS: POTASSIUM CHLORIDE 20 MEQ TABLET PO PRN ×3 (11:55→17:08)
--- NOTE | 2017-02-15 13:28 | Hospitalist Progress Note ---
Assessment and Plan (1) Alcoholic hepatitis Status: Chronic Current Visit: No (2) Acute posthemorrhagic anemia Status: Acute Assessment and plan: GI assisting EGD with retained food in his esophagus and stomach. No clear source of bleeding. Current Visit: No (3) Alcoholism Status: Acute Current Visit: Yes (4) Epigastric pain Status: Acute Assessment and plan: GI assisting Current Visit: Yes (5) Alcoholic cirrhosis of liver with ascites Status: Acute Assessment and plan: Bilirubin 12 on admission Stable at 9 today Current Visit: Yes Hospitalist: Subjective Interval history: No acute events overnight. Patient did have short runs of asymptomatic vtach with his low potassium yesterday. EGD today. Exam - Constitutional Vitals: Period Temp Pulse Resp BP Sys/Rivera Pulse Ox Last 24 Hr 97.1 F-98.3 F 76-90 18-96 102-122/62-84 93-100 General appearance: normal weight - Head Head exam: Present: normocephalic, atraumatic - Eye Eye exam: Present: EOMI Pupils: Present: GREGORY - ENT ENT exam: Present: normal exam - Neck Neck exam: Present: normal inspection - Respiratory Respiratory exam: Present: clear to auscultation bilaterally. Absent: rhonchi, wheezes - Cardiovascular Cardiovascular exam: Present: regular rate and rhythm - GI/Abdominal GI/Abdominal exam: Present: normal bowel sounds, soft. Absent: tenderness, rebound - Extremities Exam Extremities exam: Present: normal inspection - Back Exam Back exam: Present: normal inspection - Neurological Exam Neurological exam: Present: alert, oriented X3 - Psychiatric Psychiatric exam: Present: normal affect, normal mood - Skin Skin exam: Present: warm, intact Results - Labs CBC & BMP: 02/15/17 07:06 02/15/17 07:06 Quality Measures - VTE Contraindication to Pharmacological VTE Prophylaxis: Active Bleeding
[2017-02-15] MEDS: METOCLOPRAMIDE 10 MG/2 ML VIAL IV SCH ×2 (13:43→18:10)
[2017-02-16] MEDS: HYDROCORTISONE 2.5% RECTAL CREAM 30 GM TUBE TOP SCH ×4 (00:15→21:16)
[2017-02-16] MEDS: METOCLOPRAMIDE 10 MG/2 ML VIAL IV SCH ×4 (00:28→17:53)
[2017-02-16] MEDS: INSULIN LISPRO 100 UNIT/ML SUBCUT SCH ×4 (00:28→17:41)
[2017-02-16] MEDS: metroNIDAZOLE INJ 500 MG in PREMIX 1 EACH IV SCH ×3 (01:42→16:59)
[2017-02-16] MEDS: chlordiazePOXIDE 25 MG CAPSULE PO SCH ×3 (01:42→17:39)
[2017-02-16 05:31] LABS: Basophils % 0.3 % (0.0-0.8); Eosinophils # 0.1 10*3/uL (0.0-0.87); Eosinophils % 0.9 % (0.00-10.9); Hematocrit 25.2 VOL% (42.0-52.0); Hemoglobin 9.4 GM/DL (14.0-18.0); Immature Granulocytes % 0.7 %; Immature Granulocytes Absolute 0.07 #; Lymphocytes # 1.4 10*3/uL (1.4-4.0); Lymphocytes % 13.7 % (21.2-54.2); Mean Corpuscular HGB Conc 37.3 GM/DL (32-36); Mean Corpuscular Hemoglobin 36 PG (27-34); Mean Corpuscular Volume 95.5 FL (87-102); Mean Platelet Volume 10.5 FL (9.6-12.0); Monocytes # 0.9 10*3/uL (0.11-0.8); Monocytes % 8.5 % (1.7-12.7); NRBC # 0.05 10*3/uL; Neutrophils # 7.9 10*3/uL (1.4-7.4); Neutrophils % 75.9 % (38.7-73.9); Platelet Count 165 T/CUMM (130-400); Red Blood Count 2.64 MC/CUMM (3.8-5.5); Red Cell Distribution Width 22.7 % (9.3-17.3); White Blood Count 10.4 T/CUMM (4-12)
[2017-02-16 05:52] LABS: Macrocytosis 1+; Polychromasia Slight; Target Cells 1+
[2017-02-16 05:53] LABS: Hypochromasia 1+; Platelet Estimate Adequate
[2017-02-16 06:08] LABS: Albumin 1.6 G/DL (3.4-5.0); Bilirubin,Total 8.1 MG/DL (0.2-1.0); Calcium 7.3 MG/DL (8.5-10.1); Osmolality,Calculated 280.4 MOS/KG (273-304); Potassium 2.9 MMOL/L (3.5-5.1); Total Protein 5.3 G/DL (6.4-8.3)
[2017-02-16 06:10] LABS: Albumin 1.6 G/DL (3.4-5.0); Bilirubin,Direct 6.72 MG/DL (0.0-0.20); Bilirubin,Indirect 1.4 MG/DL (0.0-1.0); Bilirubin,Total 8.1 MG/DL (0.2-1.0); Total Protein 5.4 G/DL (6.4-8.3)
[2017-02-16 06:17] LABS: Magnesium 1.7 MG/DL (1.8-2.4)
[2017-02-16] MEDS: SODIUM CHLORIDE 0.9% 1,000 ML IV SCH ×2 (08:01→08:04)
[2017-02-16] MEDS ORDERED: [UNRECOGNIZED DRUG - OTHER] IV ONE (09:00)
[2017-02-16] MEDS ORDERED: POTASSIUM PHOSPHATE IV ONE (09:00)
[2017-02-16] MEDS ORDERED: MAGNESIUM SULF IV ONE (09:00)
[2017-02-16] MEDS ORDERED: POTASSIUM CHLORIDE IV ONE (09:00)
[2017-02-16] MEDS: THIAMINE 100 MG TABLET PO SCH (09:03)
[2017-02-16] MEDS: MULTIVITAMIN (CENTRUM) TABLET PO SCH (09:03)
[2017-02-16] MEDS: FOLIC ACID 1 MG TABLET PO SCH (09:03)
[2017-02-16] MEDS: PANTOPRAZOLE 40 MG VIAL IV SCH (09:57)
--- NOTE | 2017-02-16 11:18 | Hospitalist Progress Note ---
<MiguelDarya - Last Filed: 02/16/17 11:16> Assessment and Plan (1) Alcoholic cirrhosis of liver with ascites Status: Acute Assessment and plan: Bilirubin noted at 12 the time of admission; down to 8.10 today. Current Visit: Yes (2) Epigastric pain Status: Acute Assessment and plan: Gastroenterology is following; gastroenterology to manage. Current Visit: Yes (3) Lower GI bleed Status: Acute Current Visit: Yes (4) Anemia Status: Acute Assessment and plan: Blood counts stable at 9.4/25.2 slight decrease from 9.4/25.9 on yesterday. We will recheck CBC in a.m. Current Visit: No Exam - Constitutional Vitals: Period Temp Pulse Resp BP Sys/Rivera Pulse Ox Last 24 Hr 97.0 F-98.3 F 89-101 18-20 102-118/62-76 90-100 General appearance: normal weight, no acute distress - Head Head exam: Present: normal inspection, normocephalic, atraumatic - Eye Eye exam: Present: EOMI, other (jaundice) Pupils: Present: GREGORY - ENT ENT exam: Present: normal exam, normal external ear exam, normal oropharynx - Neck Neck exam: Present: normal inspection. Absent: lymphadenopathy, meningismus, tenderness, thyromegaly - Respiratory Respiratory exam: Present: clear to auscultation bilaterally, other. Absent: rales, rhonchi, stridor, wheezes - Cardiovascular Cardiovascular exam: Present: regular rate and rhythm. Absent: carotid bruit, diastolic murmur, gallop, JVD, rubs, systolic murmur - GI/Abdominal GI/Abdominal exam: Present: normal bowel sounds, soft - Extremities Exam Extremities exam: Present: normal inspection, normal capillary refill, full ROM. Absent: edema - Back Exam Back exam: Present: normal inspection - Neurological Exam Neurological exam: Present: alert, oriented X3, CN II-XII intact - Psychiatric Psychiatric exam: Present: normal affect, normal mood - Skin Skin exam: Present: normal color, warm, dry Results - Labs CBC & BMP: 02/16/17 04:47 02/16/17 04:47 Lab Results: I have reviewed the past 24 hour labs Quality Measures - VTE Contraindication to Pharmacological VTE Prophylaxis: Active Bleeding <Sheng Lynn - Last Filed: 02/16/17 18:14> Assessment and Plan (1) Alcoholic hepatitis Status: Chronic Current Visit: No (2) Acute posthemorrhagic anemia Status: Acute Current Visit: No (3) Alcoholism Status: Acute Current Visit: Yes (4) Epigastric pain Status: Acute Current Visit: Yes (5) Alcoholic cirrhosis of liver with ascites Status: Acute Current Visit: Yes Hospitalist: Subjective Interval history: Patient seen and examined independently of JANN Rivera, agree with assessment and plan as documented. Patient with no complaints. Exam - Constitutional Vitals: Period Temp Pulse Resp BP Sys/Rivera Pulse Ox Last 24 Hr 97.0 F-98.3 F 84-101 18-20 104-116/62-81 90-100 Results - Labs CBC & BMP: 02/16/17 04:47 02/16/17 04:47
[2017-02-16] MEDS: METOPROLOL TARTRATE 25 MG TABLET PO SCH ×2 (12:16→21:18)
--- NOTE | 2017-02-16 12:25 | Pathology Report from [facility] ---
[facility] [place] ACCESSION # : [id number] PATIENT NAME : Sean Marks ORDERING DR : Raymond Swanson MD CLINICAL HX: Epigastric pain POST-OP DX: #1 Sprue #2 ALLY SPECIMEN INFO: #1 Duodenal biopsy #2 Gastric biopsy GROSS DESCRIPTION: #1 Received in formalin labeled with the patients name SEAN MARKS and #1 consists of a 0.8 x 0.4 cm aggregate of krueger mucosal tissue. Submitted in cassette #1.#2 Received in formalin labeled with the patients name SEAN MARKS and #2 consists of a 0.9 x 0.3 cm white-krueger aggregate of mucosal tissue. Submitted in cassette #2. DIAGNOSIS FOR SEAN MARKS: #1 DUODENAL BIOPSY: Benign small bowel mucosa with normal villous architecture and mild chronic inflammation. No evidence of sprue.#2 STOMACH BIOPSY: Chronic gastritis. No evidence of malignancy. H. pylori not seen on H&E or special stain with appropriate control. COLLECTED DATE: 02/15/2017 [facility] REPORT DATE: 02/16/2017 ELECTRONICALLY SIGNED BY: Tali rC III, M.D. 02/16/2017 - 10:50:47 [facility]
--- NOTE | 2017-02-16 18:45 | Gastrointestinal Progress Note ---
Assessment and Plan (1) Epigastric pain Status: Acute Assessment and plan: I suspect the patient may have gastric erosions or ulcerations due to NSAID use with the Naprosyn, cannot rule out esophageal variceal bleed with symptoms do not seem to be severe enough for this to be the case., Will watch the patient and see if he requires transfer to the unit for hypotension and hematemesis or worsening blood in the stool. Stools are chestnut brown but not black and not true melena. Again I suspect this may be erosions or a peptic ulcer caused by the NSAID's versus Helicobacter pylori with or without alcoholic gastritis/ portal hypertensive gastropathy. Will perform upper endoscopy tomorrow, risks and benefits of the procedure were reviewed with the patient which include but are not limited to: Bleeding, infection, perforation, cardiac and pulmonary compromise. 02/15/17--The findings on upper endoscopy are as follows: This patient has retained solid food in his esophagus but not the classic "bird's beak" one would expect to the EG junction to confirm achalasia. This may represent regurgitated food from the stomach. Large amount of retained food in the stomach consistent with gastroparesis. This food went all the way down into the visualized duodenum. There was likely stasis gastritis along with erosive duodenitis both biopsied. These can be a source for bleeding. Biopsies taken for celiac sprue. The patient's nausea and vomiting continued despite Reglan we may want to barium swallow to look for achalasia followed by esophageal manometry if the antihypertensive appearing LES is identified. 02/16/17--gastroparesis noted on yesterday's exam but also retained food in the esophagus. Patient appears to be able to eat somewhat today. We will advance his diet tomorrow and see how he does with soft food. Biopsies have returned and looked fairly benign, no gross evidence of lymphoma or cancer of any type. Suggest that he stay off of Naprosyn. He can likely be discharged tomorrow if he is doing well with the Reglan elixir and is able tolerate a solid diet. Prescription has been written and left on the front of the chart. Current Visit: Yes (2) Alcoholic cirrhosis of liver with ascites Status: Acute Assessment and plan: The patient's bilirubin is up to 12 on admission this is improved with hydration. The common bile duct is still only 3 mm indicating this is not obstructive in nature, fortunately. The patient needs to discontinue drinking entirely. I do note that after several days off of alcohol during his last admission his bilirubin dropped from 7-->3. He denies drinking significant alcohol as an outpatient but his MCV is high as well. 02/15/17--patient continues to drink likely as an outpatient. He did not have esophageal varices. If his ascites worsens we can consider obtaining paracentesis. Continue to monitor LFTs at this time. The liver function tests appear to be static at this time--bilirubin is 9.4 today. 02/16/17--It was suggested the patient Remain Abstinent from Alcohol for his remaining years. Bilirubin continues to fall, this is down to a bilirubin of 8.1 with a direct component of 6.7. Total protein albumin appear consistent with malnourishment. Current Visit: Yes (3) Upper gastrointestinal bleed Status: Acute Assessment and plan: This patient appears to have an upper GI bleeding episode on the basis of dark stools and epigastric tenderness. He has a history of NSAID use, but also has his history of alcoholism and may have esophageal varices, AVMs, gastric cancer , peptic ulcer disease and portal hypertensive gastropathy as well as Dieulafoy' s lesions potentially. Will perform upper endoscopy tomorrow to discover which of these is causing his issues. 02/15/17--I did not see any active bleeding in the upper GI tract. There may been a Laurie-Bucio tear earlier but there was no evidence of that on today's exam. He does have some stasis gastritis noted. Biopsies are pending to look for Helicobacter pylori. Achalasia remains in the differential with the food retained in the esophagus--this may just be regurgitated up from the patient's severe gastroparesis noted today. 02/16/17--Gastritis noted mostly from stasis with the gastroparesis previously noted with the patient. I doubt this is achalasia given the laxity in the EG junction seen. If dysphagia in the future would definitely consider getting a barium swallow to look for hypertensive LES. Current Visit: Yes Gastroenterology - PN: Subj Interval history: The patient appears to be doing fairly well with the Reglan IV he has been given , he is able to eat better today. From my standpoint he can likely be discharged, unfortunately do not believe there is a good way for us to keep him from drinking further but abstinence was once again emphasized today. Exam (Progress Note) - Constitutional Vitals: Period Temp Pulse Resp BP Sys/Rivera Pulse Ox Last 24 Hr 97.0 F-98.3 F 84-101 18-20 104-116/62-81 90-100 General appearance: no acute distress - Head Head exam: Present: normocephalic - Eye Eye exam: Present: EOMI - Respiratory Respiratory exam: Present: clear to auscultation bilaterally - Cardiovascular Cardiovascular exam: Present: regular rate and rhythm - GI/Abdominal GI/Abdominal exam: Present: normal bowel sounds, distended, soft. Absent: guarding, tenderness, rebound - Extremities Exam Extremities exam: Present: edema - Neurological Exam Neurological exam: Present: alert, oriented X3 - Psychiatric Psychiatric exam: Present: normal affect, normal mood - Skin Skin exam: Present: warm Results - Labs CBC & BMP: 02/16/17 04:47 02/16/17 04:47
[2017-02-16] MEDS: METOCLOPRAMIDE 10 MG/10 ML UDCUP PO SCH (21:17)
[2017-02-17] MEDS: SODIUM CHLORIDE 0.9% 1,000 ML IV SCH ×2 (00:14→10:27)
[2017-02-17] MEDS: INSULIN LISPRO 100 UNIT/ML SUBCUT SCH ×3 (00:29→12:12)
[2017-02-17] MEDS: metroNIDAZOLE INJ 500 MG in PREMIX 1 EACH IV SCH ×2 (01:14→09:11)
[2017-02-17] MEDS: chlordiazePOXIDE 25 MG CAPSULE PO SCH ×2 (01:14→09:11)
[2017-02-17 05:09] LABS: Basophils % 0.3 % (0.0-0.8); Eosinophils # 0.2 10*3/uL (0.0-0.87); Eosinophils % 1.3 % (0.00-10.9); Hematocrit 26.6 VOL% (42.0-52.0); Hemoglobin 9.7 GM/DL (14.0-18.0); Immature Granulocytes % 0.8 %; Lymphocytes # 2.3 10*3/uL (1.4-4.0); Lymphocytes % 17.7 % (21.2-54.2); Mean Corpuscular HGB Conc 36.5 GM/DL (32-36); Mean Corpuscular Hemoglobin 36 PG (27-34); Mean Corpuscular Volume 98.2 FL (87-102); Mean Platelet Volume 10.2 FL (9.6-12.0); Monocytes # 0.9 10*3/uL (0.11-0.8); Monocytes % 7.1 % (1.7-12.7); NRBC # 0.02 10*3/uL; Neutrophils # 9.3 10*3/uL (1.4-7.4); Neutrophils % 72.8 % (38.7-73.9); Platelet Count 184 T/CUMM (130-400); Red Blood Count 2.71 MC/CUMM (3.8-5.5); Red Cell Distribution Width 23.8 % (9.3-17.3); White Blood Count 12.7 T/CUMM (4-12)
[2017-02-17 05:46] LABS: Albumin 1.6 G/DL (3.4-5.0); Bilirubin,Direct 6.78 MG/DL (0.0-0.20); Bilirubin,Indirect 2.4 MG/DL (0.0-1.0); Bilirubin,Total 9.2 MG/DL (0.2-1.0); Bilirubin,Total 9.4 MG/DL (0.2-1.0); Calcium 7.6 MG/DL (8.5-10.1); Osmolality,Calculated 280.3 MOS/KG (273-304); Potassium 3.5 MMOL/L (3.5-5.1); Total Protein 5.5 G/DL (6.4-8.3)
[2017-02-17 05:52] LABS: Hypochromasia 1+; Platelet Estimate Normal
[2017-02-17 05:53] LABS: Giant Platelets Few; Macrocytosis Slight; Target Cells Few
[2017-02-17 06:18] LABS: Calcium 7.5 MG/DL (8.5-10.1); Osmolality,Calculated 278.4 MOS/KG (273-304); Phosphorous 1.7 MG/DL (2.5-4.9); Potassium 3.5 MMOL/L (3.5-5.1)
[2017-02-17] MEDS ORDERED: SODIUM PHOSPHATE INJ 30 MMOL in SODIUM CHLORIDE 0.9% 250 ML IV ONE (08:19)
--- NOTE | 2017-02-17 08:31 | Discharge Summary ---
<Darya Rivera - Last Filed: 02/17/17 08:21> Hospital Course - Hospital Course Hospital Course: This is a 65-year-old male that presented to the ED at [facility] on the afternoon of February 13, 2017 further evaluation of rectal bleeding. Patient has a medical history significant for nicotine addiction, alcohol dependence, liver cirrhosis, hypertension and hfy-[id number] diabetes mellitus. The patient reported a surgical history significant for lumbar fusion at L5 through S1. The patient reported the onset of symptoms 2 days prior to presentation. He reported that he noticed bright red blood in his stools over the past couple of days. In addition, the patient noted that his urine had gradually darkened over the past several weeks and that he is oral intake had significantly declined. His brother who was present at bedside reported that the patient still continues to drink daily after he has been advised against it. He noticed that his father was becoming progressively weaker which prompted him to transport him to the ED for further evaluation. The patient was assessed at the time of ED presentation. Labs were obtained which were significant for white blood cell count 16.0, hemoglobin 11.1, hematocrit 29.1, platelet count 188, sodium 133, chloride 93, BUN 28, creatinine 1.80, calculated osmolality 270.4, calcium 7.8, total bilirubin 12.60 , AST 135, alkaline phosphatase 187, albumin 2.1, and vitamin B12 1724. Urine toxicology was positive for benzodiazepines and serum alcohol level was less than 15. Chest x-ray reported platelike atelectasis in lung bases and equivocal small right pleural effusion was noted. Liver ultrasound reported moderate ascites, mild nodular contour of the liver that is commonly associated with cirrhosis, sludge in the gallbladder, no cholelithiasis or sonographic Roger sign was noted. The patient was subsequently admitted to the hospitalist service for continuation of care. Due to the severity of the patient's presenting symptoms, a gastroenterology consultation was requested. Empiric antibiotics, aggressive rehydration, protein pump inhibitors, and pain management was initiated at the time of admission. On February 14, 2017, the patient underwent nuclear medicine bleeding scan which reported no definite evidence of gastrointestinal hemorrhage. The patient was seen by gastroenterology and recommendations were given. On February 15, 2017, the patient underwent esophagogastroduodenoscopy with cold biopsy for pathology which suggested stasis gastritis along with erosive duodenitis . In addition, the patient was noted to have a large amount of retained food in the stomach which was consistent with gastroparesis. Biopsies were obtained and sent for analysis. Duodenal biopsy reported benign small bowel mucosa with normal villous architecture and mild chronic inflammation however, no evidence of sprue was noted. Stomach biopsy reported chronic gastritis however, no evidence of malignancy was noted. In addition, H. pylori was not seen on H&E or special stain with appropriate control. Reflux precautions were continued and the patient's condition gradually improved. The patient's condition is stable. The patient has not experienced any significant overnight events. Today, we feel that he is indeed appropriate for discharge home to follow-up with his primary care physician and machine rough rounder as directed. The patient has been advised to refrain from any alcohol consumption and to adhere to all suggested medical regimens. Diagnosis - Discharge Diagnosis (1) Alcoholic cirrhosis of liver with ascites Status: Acute (2) Epigastric pain Status: Acute (3) Lower GI bleed Status: Acute (4) Anemia Status: Acute Discharge Plan - Discharge Data Disposition: Disch To Home/Self Care - Discharge Medications New Folic Acid Tab 1 mg PO DAILY tablet Metoclopramide Liquid [Reglan Liquid] 10 mg PO ACHS #0 Multivitamin (Centrum) [Centrum Tab] 1 tablet PO DAILY tablet Thiamine Tab [Vitamin B1 Tab] 100 mg PO DAILY tablet Discontinued Naproxen Sodium [Aleve] 440 mg PO BID PRN PRN Reason: Pain - Follow Up or Referral - Forms/Instructions Exam - Constitutional Vitals: Period Temp Pulse Resp BP Sys/Rivera Pulse Ox Last 24 Hr 97.0 F-98.3 F 78-95 18-20 104-119/67-81 86-98 Discharge Results Procedures and tests throughout hospitalization: Pending Orders 02/13/17 16:26 Red Blood Cells Leuko Red Routine 02/13/17 19:53 Blood Culture Stat Labs on day of discharge: Labs from last 24 hours 02/17/17 02/17/17 02/17/17 07:51 04:29 04:29 WBC RBC Hgb Hct MCV MCH MCHC RDW Plt Count MPV Neut % (Auto) Lymph % (Auto) Montgomery % (Auto) Eos % (Auto) Baso % (Auto) Neut # (Auto) Lymph # (Auto) Montgomery # (Auto) Eos # (Auto) Baso # (Auto) Immature Gran % Nucleated RBC % Immature Gran # Nucleated RBCs # Platelet Estimate Giant Platelets Immature Plt Fraction Hypochromasia Macrocytosis Target Cells Sodium 140 Potassium 3.5 Chloride 106 Carbon Dioxide 26 Anion Gap 11.5 BUN 12 Creatinine 0.80 GFR Calculation 118 BUN/Creatinine Ratio 15.00 Glucose 99 POC Glucose 110 H Calculated Osmolality 278.4 Calcium 7.5 L Phosphorus Magnesium 2.0 Total Bilirubin 9.20 H Direct Bilirubin 6.780 H Indirect Bilirubin 2.4 H AST 132 H ALT 43 Alkaline Phosphatase 162 H Total Protein 5.5 L Albumin 1.6 L Globulin Albumin/Globulin Ratio 02/17/17 02/17/17 02/17/17 04:29 04:29 04:29 WBC 12.7 H RBC 2.71 L Hgb 9.7 L Hct 26.6 L MCV 98.2 MCH 36 H MCHC 36.5 H RDW 23.8 H Plt Count 184 MPV 10.2 Neut % (Auto) 72.8 Lymph % (Auto) 17.7 L Montgomery % (Auto) 7.1 Eos % (Auto) 1.3 Baso % (Auto) 0.3 Neut # (Auto) 9.3 H Lymph # (Auto) 2.3 Montgomery # (Auto) 0.9 H Eos # (Auto) 0.2 Baso # (Auto) 0.0 Immature Gran % 0.8 Nucleated RBC % 0.2 Immature Gran # 0.10 Nucleated RBCs # 0.02 Platelet Estimate Normal Giant Platelets Few Immature Plt Fraction 0.0 Hypochromasia 1+ Macrocytosis Slight Target Cells Few Sodium 141 Potassium 3.5 Chloride 106 Carbon Dioxide 26 Anion Gap 12.5 BUN 12 Creatinine 0.80 GFR Calculation 118 BUN/Creatinine Ratio 15.00 Glucose 101 POC Glucose Calculated Osmolality 280.3 Calcium 7.6 L Phosphorus 1.7 L Magnesium 2.0 Total Bilirubin 9.40 H Direct Bilirubin Indirect Bilirubin AST 134 H ALT 44 Alkaline Phosphatase 166 H Total Protein 5.5 L Albumin 1.6 L Globulin 3.9 H Albumin/Globulin Ratio 0.4 L 02/17/17 02/16/17 02/16/17 00:13 19:05 15:32 WBC RBC Hgb Hct MCV MCH MCHC RDW Plt Count MPV Neut % (Auto) Lymph % (Auto) Montgomery % (Auto) Eos % (Auto) Baso % (Auto) Neut # (Auto) Lymph # (Auto) Montgomery # (Auto) Eos # (Auto) Baso # (Auto) Immature Gran % Nucleated RBC % Immature Gran # Nucleated RBCs # Platelet Estimate Giant Platelets Immature Plt Fraction Hypochromasia Macrocytosis Target Cells Sodium Potassium Chloride Carbon Dioxide Anion Gap BUN Creatinine GFR Calculation BUN/Creatinine Ratio Glucose POC Glucose 135 H 178 H 132 H Calculated Osmolality Calcium Phosphorus Magnesium Total Bilirubin Direct Bilirubin Indirect Bilirubin AST ALT Alkaline Phosphatase Total Protein Albumin Globulin Albumin/Globulin Ratio 02/16/17 11:13 WBC RBC Hgb Hct MCV MCH MCHC RDW Plt Count MPV Neut % (Auto) Lymph % (Auto) Montgomery % (Auto) Eos % (Auto) Baso % (Auto) Neut # (Auto) Lymph # (Auto) Montgomery # (Auto) Eos # (Auto) Baso # (Auto) Immature Gran % Nucleated RBC % Immature Gran # Nucleated RBCs # Platelet Estimate Giant Platelets Immature Plt Fraction Hypochromasia Macrocytosis Target Cells Sodium Potassium Chloride Carbon Dioxide Anion Gap BUN Creatinine GFR Calculation BUN/Creatinine Ratio Glucose POC Glucose 138 H Calculated Osmolality Calcium Phosphorus Magnesium Total Bilirubin Direct Bilirubin Indirect Bilirubin AST ALT Alkaline Phosphatase Total Protein Albumin Globulin Albumin/Globulin Ratio Preliminary micro results at discharge 02/13/17 19:53 Blood Culture - Preliminary Blood No growth at 3 days 02/13/17 19:53 Blood Culture - Preliminary Blood No growth at 3 days DS: Provider Date of admission: 02/13/17 15:41 Primary care physician: . No PCP Attending physician on admission: Reagan Neff MD Consults: 02/13/17 16:08 Consult to Physician [CONS] Routine Comment: LGIB, alcohol hepatitis Consulting Provider: Raymond Swanson Person Notified: Dr. Swanson Date Notified: 02/14/17 Time Notified: 07:37 Consult Notification Comment: Dr. Swanson seen on AM rounds 02/14/17 08:06 Consult to Anesthesiology [CONS] Routine Consulting Provider: Reason for Anesthesiology: Pre-op Clearance 02/17/17 08:14 Consult to Occupational Therapy [CONS] Routine Reason for Occupational Therapy: Evaluate and Treat Consult to Physical Therapy [CONS] Routine Reason for Physical Therapy: Evaluate and Treat Discharging clinician: Darya Rivera CNP <Sheng Lynn - Last Filed: 02/17/17 11:37> Hospital Course - Time spent with patient Time with patient DS: Less than 30 minutes Diagnosis - Discharge Diagnosis (1) Alcoholic hepatitis Status: Chronic (2) Acute posthemorrhagic anemia Status: Resolved (3) Alcoholism Status: Chronic (4) Epigastric pain Status: Resolved (5) Alcoholic cirrhosis of liver with ascites Status: Chronic Discharge Plan - Discharge Data Condition at Discharge: Stable Discharge Diet: advance to your usual diet Activity: increase activity as tolerated Hygiene: no restrictions Weight Bearing at Discharge: weight bear as tolerated Contact your physician if you experience:: Shortness of breath, Bleeding Exam - Constitutional General appearance: normal weight - Head Head exam: Present: normocephalic, atraumatic - Eye Eye exam: Present: EOMI Pupils: Present: GREGORY - ENT ENT exam: Present: normal exam - Neck Neck exam: Present: normal inspection - Respiratory Respiratory exam: Present: clear to auscultation bilaterally. Absent: rhonchi, wheezes - Cardiovascular Cardiovascular exam: Present: regular rate and rhythm - GI/Abdominal GI/Abdominal exam: Present: normal bowel sounds, soft. Absent: tenderness, rebound - Extremities Exam Extremities exam: Present: normal inspection - Back Exam Back exam: Present: normal inspection - Neurological Exam Neurological exam: Present: alert, oriented X3 - Psychiatric Psychiatric exam: Present: normal affect, normal mood - Skin Skin exam: Present: warm, intact
[2017-02-17] MEDS ORDERED: POTASSIUM CHLORIDE 20 MEQ TABLET PO SCH (09:00)
[2017-02-17] MEDS ORDERED: PANTOPRAZOLE 40 MG TABLET PO SCH (09:00)
[2017-02-17] MEDS: METOCLOPRAMIDE 10 MG/10 ML UDCUP PO SCH ×2 (09:11→12:11)
[2017-02-17] MEDS: METOPROLOL TARTRATE 25 MG TABLET PO SCH (09:11)
[2017-02-17] MEDS: THIAMINE 100 MG TABLET PO SCH (09:11)
[2017-02-17] MEDS: MULTIVITAMIN (CENTRUM) TABLET PO SCH (09:11)
[2017-02-17] MEDS: FOLIC ACID 1 MG TABLET PO SCH (09:11)
[2017-02-17] MEDS: HYDROCORTISONE 2.5% RECTAL CREAM 30 GM TUBE TOP SCH (09:12)
[2017-02-17 12:03] VITALS: BP 113/65
== END 2017-02-17 13:33 | disposition home or self-care (01) | DRG 378 ==
LOC: N.ED 12:48 → N.EDINP 15:41 → SUATTDRO 15:41 → N.2E 16:58
PROVIDERS: ADMIT Internal Medicine Infectious Disease; ATTEND Internal Medicine